=== PATIENT | female | born 1935 | race Caucasian/White ===

== ENCOUNTER 2022-08-30 20:58 | Emergency (ER) | payer OTHER ==
--- OUTSIDE RECORDS SUMMARY | 2022-08-30 21:15 | XMS REPORT | Continuity of Care Document ---
:1935 Author Organization [facility] t Address [address] [place] [address] Care Team Providers Name Role Phone Angelo Benavides MD Primary Care Physician [id number] Attending Clinician Unavailable MICHELET CYR KEVIN Attending Clinician Unavailable Angelo Benavides Attending Clinician Unavailable Manny Rosenberg Attending Clinician Unavailable Jessica Attending Clinician Unavailable Faheem Velarde Attending Clinician Unavailable ABI VILLANUEVA Attending Clinician Unavailable Julia CAFE ASSOCIATE, Elva Day Attending Clinician [phone] Luis E DIXON, Cheryl Jones Attending Clinician [phone] Liza DIXON, Denise Attending Clinician Oliverio Dickinson Attending Clinician Unavailable Angelo Benavides MD Attending Clinician A_Bybetzy Attending Clinician Unavailable RAYRAY SHETTY Attending Clinician Unavailable Garland Aguila Attending Clinician Unavailable WHITLEY ANDERSON Attending Clinician Unavailable LEONORA MESSER MICHAEL Attending Clinician Unavailable Paola Gilbert Attending Clinician Unavailable RICKIE MAXWELL Attending Clinician Unavailable Jamal Fairbanks Attending Clinician Unavailable Leonora Cottrell Attending Clinician Unavailable ALICIA CALDERA Attending Clinician Unavailable LEX HOLLOWAY Attending Clinician Unavailable Carli Juan Attending Clinician Unavailable YAEL BURNETT Attending Clinician Unavailable ANDIE SCHRADER Attending Clinician Unavailable GERSON ARANA Attending Clinician Unavailable Andrea Ritchie Attending Clinician Unavailable Kane Romero Attending Clinician Unavailable ESTHER LEI Attending Clinician Unavailable LI HAHN Attending Clinician Unavailable Gerson Arana Attending Clinician Unavailable STACY JOYNER Attending Clinician Unavailable EDWIN BAZZI Attending Clinician Unavailable IMER ELIZONDO Attending Clinician Unavailable ADAN PEREIRA Attending Clinician Unavailable [id number] Admitting Clinician Unavailable MICHELET CYR KEVIN Admitting Clinician Unavailable Angelo Benavides Admitting Clinician Unavailable Jessica Admitting Clinician Unavailable Martinez Admitting Clinician Unavailable LEONORA MESSER MICHAEL Admitting Clinician Unavailable Carli Juan Admitting Clinician Unavailable GERSON ARANA Admitting Clinician Unavailable Andrea Ritchie Admitting Clinician Unavailable ESTHER LEI Admitting Clinician Unavailable ADAN PEREIRA Admitting Clinician Unavailable Payers Payer Name Policy Type Policy Number Effective Date Expiration Date S [facility] [id number] [facility] [id number] MEDIC[id number] (MEDICARE REPLACEMENT/ADVANT AGE - PPO) [place]: [id number] 2002 [employer] 00:00:00 [facility] [id number] 2013 PLAN G (MEDICARE 00:00:00 SUPPLEMENT) [place]: [id number] 2002 [employer] 00:00:00 - [facility] - [facility] MCR MCR [id number] [facility] [id number] Problems Condition Condition Condition Status Onset Resolution Last Treating Co mments Source Name Details Category Date Date Treatment Clinician Date Acute Acute Problem Active [facility] urinary Urinary 1-09 da tract Tract 00:00: Medical infection Infection 00 Grou p Acute Acute Problem Active [facility] bronchopne Bronchopne 1-06 da umonia umonia 00:00: Medical 00 Group Cough Cough Problem Active [facility] 1-06 da 00:00: Medical 00 Group Hemoptysis Hemoptysis Problem Active [facility] 5-05 da 00:00: Medical 00 Group Osteoporos Osteoporos Problem Active 2018-06 [facility] is is 2-12 da 00:00: Medical 00 Group Chronic Chronic Problem Active 2018-06 [facility] renal Renal 0-30 da failure Failure 00:00: Medical 00 Group 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 00:00: Hospit a 00 l 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 00:00: Ho spita 00 l Postural Postural Disease Active Metho di instabilit instabilit 12-28 y y 00:00: Hospita 00 l 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 12-28 00:00: Hospita 00 l 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 00:00: Ho spita athy athy 00 l 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 00:00: Ho spita disorder disorder 00 l Hypertensi Hypertensi Disease Active M ethodi on on 12-13 00:00: Hospita 00 l CKD CKD Disease Active [facility] (chronic (chronic 12-13 kidney kidney 00:00: Hospita disease) disease) 00 l Urinary Urinary Disease Active [facility] incontinen incontinen 12-13 ce ce 00:00: Hospita 00 l Abnormal Abnormal Disease Active Meth[facility] di gait gait 12-13 st 00:00: Hospita 00 l Paraneopla Paraneopla Disease Active M ethodi stic stic 12-13 st neurologic neurologic 00:00: Ho spita disorder disorder 00 l Recurrent Recurrent Problem Active [facility] urinary Urinary 6-21 da tract Tract 00:00: Medical infection Infection 00 Grou p Unsteady Unsteady Problem Active [facility] gait Gait 4-15 da 00:00: Medical Group Unintentio Unintentio Problem Active [facility] nal weight nal Weight 4-15 da loss Loss 00:00: Medical Group Ventral Ventral Problem Active 2017-06 [facility] incisional Incisional 1-16 da hernia Hernia 00:00: Medical Group Chronic Chronic Problem Active [facility] depression Depression 3-02 da 00:00: Medical 00 Group Bilateral Bilateral Disease Active Met hodi leg leg 9-15 st weakness weakness 00:00: Hospit a 00 l Abrasion Abrasion Problem Active [place] [facility] of of da perineum Perineum Medica l Group Contusion Contusion Problem Active [facility] of scalp of Scalp [facility] Medical Group 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 Group Candidiasi Candidiasi Problem Active M [facility] s of skin s of Skin da Medical Group Pure Pure Problem Active [facility] hyperchole Hyperchole da sterolemia sterolemia Me dical Group Iron Iron Problem Active [facility] deficiency Deficiency da anemia Anemia Medical Group Benign Benign Problem Active [facility] essential Essential da hypertensi Hypertensi Me dical on on Group Lesion of Lesion of Problem Active [facility] nose Nose [facility] Group Chronic Chronic Problem Active [facility] renal Renal da impairment Impairment Me dical Group Low Low Problem Active [facility] compliance Compliance da bladder Bladder Medical Group Urinary Urinary Problem Active [facility] tract Tract da infectious Infectious Me dical disease Disease Group Menopausal Menopausal Problem Active M [facility] and and da postmenopa Postmenopa Me dical usal usal Group disorders Disorders Menopausal Menopausal Problem Active [facility] flushing Flushing da Medical Group 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 Medi saurav Group Skin Skin Problem Active [facility] lesion Lesion [facility] Hip pain Hip Pain Problem Active [facility] Degenerati Degenerati Problem Active [facility] on of on of da lumbar Lumbar Medical interverte Interverte Gr oup bral disc bral Disc Low back Low Back Problem Active [facility] pain Pain [facility] Acute Acute Problem Active [facility] sciatica Sciatica da Medical Group Pain in Pain in Problem Active [facility] lower limb Lower Limb da Medical Group Fatigue Fatigue Problem Active [facility] Unexplaine Unexplaine Problem Active [facility] d weight d Weight da loss Loss Medical Group Chronic Chronic Problem Active [facility] cough Cough [facility] Nausea and Nausea and Problem Active [facility] vomiting Vomiting da Medical Group Vomiting Vomiting Problem Active [facility] Diarrhea Diarrhea Problem Active [facility] Dysuria Dysuria Problem Active [facility] Allergies, Adverse Reactions, Alerts Allergy Allergy Status Severity Reaction(s) Onset Inactive Treating Comm ents Source Name Type Date Date Clinician Drew Salas Active Catatonic Met hodi ne ty to 02-27 , AMS st adverse 00:00: Hospita reaction 00 l s to drug Tramadol Propensi Active AMS Method i ty to 02-27 st adverse 00:00: Hospita reaction 00 l s to drug Demerol Allergy Active Moderate Anaphylaxis [facility] to to severe 06-15 da substanc 00:00: Medical e 00 Group Family History Family Member Diagnosis Comments Start Date Stop Date Source Natural father Cancer [facility] Natural mother Stroke [facility] Social History Social Habit Start Date Stop Date Quantity Comments Source Alcohol intake 2022-05-30 2022-05-30 Current [facility] 00:00:00 00:00:00 non-drinker of Hospital alcohol (finding) Tobacco use and 2022-02-06 2022-02-06 Smokeless tobacco [facility] exposure 00:00:00 00:00:00 non-user Hospital Sex Assigned At [birth year] [facility] 00:[facility]:00 Hospital Smoking Status Start Date Stop Date Source Never smoked tobacco [facility]sp[facility] Medications Ordered Filled Start Stop Current Ordering Indication Dosage Frequency Signature Comments Components Source Medication Medication Date Date Medication? Clinician (SIG) Name Name amoxicillin amoxicillin No amoxicilli [facility] 875 875 1-10 n 875 da mg-potassiu mg-potassiu 00:00: mg-Tiempy [facility] 00 um Group clavulanate clavulanate clavulanat 125 mg 125 mg e 125 mg tablet TAKE tablet TAKE tablet 1 TABLET BY 1 TABLET BY TAKE 1 MOUTH EVERY MOUTH EVERY TABLET BY 12 HOURS 12 HOURS MOUTH FOR 7 DAYS FOR 7 DAYS EVERY 12 HOURS FOR 7 DAYS azithromyci azithromyci 2022-0 No azithromyc [place] n 250 mg n 250 mg 1-10 in 250 mg da tablet TAKE tablet TAKE 00:00: tablet Medical 2 TABLETS 2 TABLETS 00 TAKE 2 Gabe up (500 MG) BY (500 MG) BY TABLETS ORAL ROUTE ORAL ROUTE (500 MG) ONCE DAILY ONCE DAILY BY ORAL FOR 1 DAY FOR 1 DAY ROUTE ONCE THEN 1 THEN 1 DAILY FOR TABLET (250 TABLET (250 1 DAY THEN MG) BY ORAL MG) BY ORAL 1 TABLET ROUTE ONCE ROUTE ONCE (250 MG) DAILY FOR 4 DAILY FOR 4 BY ORAL DAYS DAYS ROUTE ONCE DAILY FOR 4 DAYS amoxicillin amoxicillin 2022-0 No amoxicilli [facility] 875 875 1-10 n 875 da mg-potassiu mg-potassiu 00:00: mg-[facility] 00 um Group clavulanate clavulanate clavulanat 125 mg 125 mg e 125 mg tablet TAKE tablet TAKE tablet 1 TABLET BY 1 TABLET BY TAKE 1 MOUTH EVERY MOUTH EVERY TABLET BY 12 HOURS 12 HOURS MOUTH FOR 7 DAYS FOR 7 DAYS EVERY 12 HOURS FOR 7 DAYS azithromyci azithromyci 2022-0 No azithromyc [place] n 250 mg n 250 mg 1-10 in 250 mg da tablet TAKE tablet TAKE 00:00: tablet Medical 2 TABLETS 2 TABLETS 00 TAKE 2 Gabe up (500 MG) BY (500 MG) BY TABLETS ORAL ROUTE ORAL ROUTE (500 MG) ONCE DAILY ONCE DAILY BY ORAL FOR 1 DAY FOR 1 DAY ROUTE ONCE THEN 1 THEN 1 DAILY FOR TABLET (250 TABLET (250 1 DAY THEN MG) BY ORAL MG) BY ORAL 1 TABLET ROUTE ONCE ROUTE ONCE (250 MG) DAILY FOR 4 DAILY FOR 4 BY ORAL DAYS DAYS ROUTE ONCE DAILY FOR 4 DAYS amoxicillin amoxicillin 2022-0 No amoxicilli [facility] 875 875 1-10 n 875 da mg-potassiu mg-potassiu 00:00: mg-potassi Medical m m 00 um Group clavulanate clavulanate clavulanat 125 mg 125 mg e 125 mg tablet TAKE tablet TAKE tablet 1 TABLET BY 1 TABLET BY TAKE 1 MOUTH EVERY MOUTH EVERY TABLET BY 12 HOURS 12 HOURS MOUTH FOR 7 DAYS FOR 7 DAYS EVERY 12 HOURS FOR 7 DAYS azithromyci azithromyci 2022-0 No azithromyc [place] n 250 mg n 250 mg 1-10 in 250 mg da tablet TAKE tablet TAKE 00:00: tablet Medical 2 TABLETS 2 TABLETS 00 TAKE 2 Gabe up (500 MG) BY (500 MG) BY TABLETS ORAL ROUTE ORAL ROUTE (500 MG) ONCE DAILY ONCE DAILY BY ORAL FOR 1 DAY FOR 1 DAY ROUTE ONCE THEN 1 THEN 1 DAILY FOR TABLET (250 TABLET (250 1 DAY THEN MG) BY ORAL MG) BY ORAL 1 TABLET ROUTE ONCE ROUTE ONCE (250 MG) DAILY FOR 4 DAILY FOR 4 BY ORAL DAYS DAYS ROUTE ONCE DAILY FOR 4 DAYS metoclopram 2021-06 Yes 5mg Q.25D Take 5 mg [facility]i luis 2-[address] (REGLAN) 5 08:14: every 6 Hosp dev MG tablet 35 (six) l hours. promethazin 2021-06 Yes 25mg Q6H Inject 25 M ethodi e 2-[address] (PHENERGAN) 08:14: the Hospit a 25 mg/mL 35 shoulder, l injection thigh, or buttocks every 6 (six) hours as needed for nausea or vomiting. pantoprazol 2021-06 Yes 40mg Q.5D Take 40 mg Methodi e 2-[address] (PROTONIX) 08:14: (two) Hospit a 40 MG EC 35 times a l tablet day. senna 2021-06 Yes 1{tbl} QD Take 1 Methodi (SENOKOT) 2-[address] 8.6 mg 08:14: mouth Hospita tablet 35 daily. l atorvastati 2021-06 Yes 20mg QD Take 20 mg Methodi n (LIPITOR) 2-[address] 20 MG 08:14: nightly. Hospita tablet 35 l ondansetron 2021-06 Yes 4mg Q8H Take 4 mg M ethodi (ZOFRAN) 4 2-[address] MG tablet 08:14: every 8 Hospi ta 35 (eight) l hours as needed for nausea. aspirin 2021-06 Yes 81mg QD Take 81 mg Meth pepe (ECOTRIN) 2-[address] 81 MG 08:14: daily. Hospita enteric 35 l coated tablet bisacodyl 2021-06 Yes 10mg Insert 10 Met hodi (DULCOLAX) 2-[address] 10 mg 08:14: the rectum Hospit a suppository 35 as needed l for constipati on. carvedilol 2021-06 Yes 3.125mg Q.5D Take 3.125 Methodi (COREG) 2-[address] 3.125 MG 08:14: mouth 2 Hospit a tablet 35 (two) l times a day with meals. EPOETIN 2021-06 Yes 5000U Q.[id number] Inject M ethodi ZULLY INJ 2-[address] [id number] 5,000 st 08:14: 3W Units Hospita 35 under the l skin 3 (three) times a week. ergocalcife 2021-06 Yes [id number] Q7D Take Meth pepe rol 2-16 50,000 st (VITAMIN 08:14: Units by Hospi ta D2) 50,000 35 mouth once l unit a week. capsule polyethylen 2021-06 Yes 17g QD Take 17 g M ethodi e glycol 2-[address] (MIRALAX) 08:14: daily. Hospit a 17 gram 35 l packet menthol-zin 2021-06 Yes 1{each} Q2H Apply 1 Methodi c oxide 2-[address] (CALMOSEPTI 08:14: topically H ospita NE) 35 every 2 l 0.44-20.6 % (two) ointment hours as needed (SACRAL AREA). metoclopram 2021-06 Yes 5mg Q.25D Take 5 mg Methodi luis 2-[address] (REGLAN) 5 08:14: every 6 Hosp dev MG tablet 35 (six) l hours. promethazin 2021-06 Yes 25mg Q6H Inject 25 M ethodi e 2-[address] (PHENERGAN) 08:14: the Hospit a 25 mg/mL 35 shoulder, l injection thigh, or buttocks every 6 (six) hours as needed for nausea or vomiting. pantoprazol 2021-06 Yes 40mg Q.5D Take 40 mg Methodi e 2-[address] (PROTONIX) 08:14: (two) Hospit a 40 MG EC 35 times a l tablet day. senna 2021-06 Yes 1{tbl} QD Take 1 Methodi (SENOKOT) 2-[address] 8.6 mg 08:14: mouth Hospita tablet 35 daily. l atorvastati 2021-06 Yes 20mg QD Take 20 mg Methodi n (LIPITOR) 2-[address] 20 MG 08:14: nightly. Hospita tablet 35 l ondansetron 2021-06 Yes 4mg Q8H Take 4 mg M ethodi (ZOFRAN) 4 2-[address] MG tablet 08:14: every 8 Hospi ta 35 (eight) l hours as needed for nausea. aspirin 2021-06 Yes 81mg QD Take 81 mg Meth pepe (ECOTRIN) 2-[address] 81 MG 08:14: daily. Hospita enteric 35 l coated tablet bisacodyl 2021-06 Yes 10mg Insert 10 Met hodi (DULCOLAX) 2-[address] 10 mg 08:14: the rectum Hospit a suppository 35 as needed l for constipati on. carvedilol 2021-06 Yes 3.125mg Q.5D Take 3.125 Methodi (COREG) 2-[address] 3.125 MG 08:14: mouth 2 Hospit a tablet 35 (two) l times a day with meals. EPOETIN 2021-06 Yes 5000U Q.[id number] Inject M ethodi ZULLY INJ 2-16 [id number] 5,000 st 08:14: 3W Units Hospita 35 under the l skin 3 (three) times a week. ergocalcife 2021-06 Yes [id number] Q7D Take Meth pepe rol 2-16 50,000 st (VITAMIN 08:14: Units by Hospi ta D2) 50,000 35 mouth once l unit a week. capsule polyethylen 2021-06 Yes 17g QD Take 17 g M ethodi e glycol 2-[address] (MIRALAX) 08:14: daily. Hospit a 17 gram 35 l packet menthol-zin 2021-06 Yes 1{each} Q2H Apply 1 Methodi c oxide 2-[address] (CALMOSEPTI 08:14: topically H ospita NE) 35 every 2 l 0.44-20.6 % (two) ointment hours as needed (SACRAL AREA). metoclopram 2021-06 Yes 5mg Q.25D Take 5 mg Methodi luis 2-[address] (REGLAN) 5 08:14: every 6 Hosp dev MG tablet 35 (six) l hours. promethazin 2021-06 Yes 25mg Q6H Inject 25 M ethodi e 2-[address] (PHENERGAN) 08:14: the Hospit a 25 mg/mL 35 shoulder, l injection thigh, or buttocks every 6 (six) hours as needed for nausea or vomiting. pantoprazol 2021-06 Yes 40mg Q.5D Take 40 mg Methodi e 2-[address] (PROTONIX) 08:14: (two) Hospit a 40 MG EC 35 times a l tablet day. senna 2021-06 Yes 1{tbl} QD Take 1 Methodi (SENOKOT) 2-[address] 8.6 mg 08:14: mouth Hospita tablet 35 daily. l atorvastati 2021-06 Yes 20mg QD Take 20 mg Methodi n (LIPITOR) 2-[address] 20 MG 08:14: nightly. Hospita tablet 35 l ondansetron 2021-06 Yes 4mg Q8H Take 4 mg M ethodi (ZOFRAN) 4 2-[address] MG tablet 08:14: every 8 Hospi ta 35 (eight) l hours as needed for nausea. aspirin 2021-06 Yes 81mg QD Take 81 mg Meth pepe (ECOTRIN) 2-[address] 81 MG 08:14: daily. Hospita enteric 35 l coated tablet bisacodyl 2021-06 Yes 10mg Insert 10 Met hodi (DULCOLAX) 2-[address] 10 mg 08:14: the rectum Hospit a suppository 35 as needed l for constipati on. carvedilol 2021-06 Yes 3.125mg Q.5D Take 3.125 Methodi (COREG) 2-[address] 3.125 MG 08:14: mouth 2 Hospit a tablet 35 (two) l times a day with meals. EPOETIN 2021-06 Yes 5000U Q.[id number] Inject M ethodi ZULLY INJ 2-16 [id number] 5,000 st 08:14: 3W Units Hospita 35 under the l skin 3 (three) times a week. ergocalcife 2021-06 Yes [id number] Q7D Take Meth pepe rol 2-16 50,000 st (VITAMIN 08:14: Units by Hospi ta D2) 50,000 35 mouth once l unit a week. capsule polyethylen 2021-06 Yes 17g QD Take 17 g M ethodi e glycol 2-[address] (MIRALAX) 08:14: daily. Hospit a 17 gram 35 l packet menthol-zin 2021-06 Yes 1{each} Q2H Apply 1 Methodi c oxide 2-[address] (CALMOSEPTI 08:14: topically H ospita NE) 35 every 2 l 0.44-20.6 % (two) ointment hours as needed (SACRAL AREA). metoclopram 2021-06 Yes 5mg Q.25D Take 5 mg Methodi luis 2-[address] (REGLAN) 5 08:14: every 6 Hosp dev MG tablet 35 (six) l hours. promethazin 2021-06 Yes 25mg Q6H Inject 25 M ethodi e 2-[address] (PHENERGAN) 08:14: the Hospit a 25 mg/mL 35 shoulder, l injection thigh, or buttocks every 6 (six) hours as needed for nausea or vomiting. pantoprazol 2021-06 Yes 40mg Q.5D Take 40 mg Methodi e 2-[address] (PROTONIX) 08:14: (two) Hospit a 40 MG EC 35 times a l tablet day. senna 2021-06 Yes 1{tbl} QD Take 1 Methodi (SENOKOT) 2-[address] 8.6 mg 08:14: mouth Hospita tablet 35 daily. l atorvastati 2021-06 Yes 20mg QD Take 20 mg Methodi n (LIPITOR) 2-[address] 20 MG 08:14: nightly. Hospita tablet 35 l ondansetron 2021-06 Yes 4mg Q8H Take 4 mg M ethodi (ZOFRAN) 4 2-[address] MG tablet 08:14: every 8 Hospi ta 35 (eight) l hours as needed for nausea. aspirin 2021-06 Yes 81mg QD Take 81 mg Meth pepe (ECOTRIN) 2-[address] 81 MG 08:14: daily. Hospita enteric 35 l coated tablet bisacodyl 2021-06 Yes 10mg Insert 10 Met hodi (DULCOLAX) 2-[address] 10 mg 08:14: the rectum Hospit a suppository 35 as needed l for constipati on. carvedilol 2021-06 Yes 3.125mg Q.5D Take 3.125 Methodi (COREG) 2-[address] 3.125 MG 08:14: mouth 2 Hospit a tablet 35 (two) l times a day with meals. EPOETIN 2021-06 Yes 5000U Q.[id number] Inject M ethodi ZULLY INJ 2-16 [id number] 5,000 st 08:14: 3W Units Hospita 35 under the l skin 3 (three) times a week. ergocalcife 2021-06 Yes [id number] Q7D Take Meth pepe rol 2-16 50,000 st (VITAMIN 08:14: Units by Hospi ta D2) 50,000 35 mouth once l unit a week. capsule polyethylen 2021-06 Yes 17g QD Take 17 g M ethodi e glycol 2-[address] (MIRALAX) 08:14: daily. Hospit a 17 gram 35 l packet menthol-zin 2021-06 Yes 1{each} Q2H Apply 1 Methodi c oxide 2-[address] (CALMOSEPTI 08:14: topically H ospita NE) 35 every 2 l 0.44-20.6 % (two) ointment hours as needed (SACRAL AREA). metoclopram 2021-06 Yes 5mg Q.25D Take 5 mg Methodi luis 2-[address] (REGLAN) 5 08:14: every 6 Hosp dev MG tablet 35 (six) l hours. promethazin 2021-06 Yes 25mg Q6H Inject 25 M ethodi e 2-[address] (PHENERGAN) 08:14: the Hospit a 25 mg/mL 35 shoulder, l injection thigh, or buttocks every 6 (six) hours as needed for nausea or vomiting. pantoprazol 2021-06 Yes 40mg Q.5D Take 40 mg Methodi e 2-[address] (PROTONIX) 08:14: (two) Hospit a 40 MG EC 35 times a l tablet day. senna 2021-06 Yes 1{tbl} QD Take 1 Methodi (SENOKOT) 2-[address] 8.6 mg 08:14: mouth Hospita tablet 35 daily. l atorvastati 2021-06 Yes 20mg QD Take 20 mg Methodi n (LIPITOR) 2-[address] 20 MG 08:14: nightly. Hospita tablet 35 l ondansetron 2021-06 Yes 4mg Q8H Take 4 mg M ethodi (ZOFRAN) 4 2-[address] MG tablet 08:14: every 8 Hospi ta 35 (eight) l hours as needed for nausea. aspirin 2021-06 Yes 81mg QD Take 81 mg Meth pepe (ECOTRIN) 2-[address] 81 MG 08:14: daily. Hospita enteric 35 l coated tablet bisacodyl 2021-06 Yes 10mg Insert 10 Met hodi (DULCOLAX) 2-[address] 10 mg 08:14: the rectum Hospit a suppository 35 as needed l for constipati on. carvedilol 2021-06 Yes 3.125mg Q.5D Take 3.125 Methodi (COREG) 2-[address] 3.125 MG 08:14: mouth 2 Hospit a tablet 35 (two) l times a day with meals. EPOETIN 2021-06 Yes 5000U [id number] Inject M ethodi ZULLY INJ 2-16 [id number] 5,000 st 08:14: 3W Units Hospita 35 under the l skin 3 (three) times a week. ergocalcife 2021-06 Yes [id number] Q7D Take Meth pepe rol 2-16 50,000 st (VITAMIN 08:14: Units by Hospi ta D2) 50,000 35 mouth once l unit a week. capsule polyethylen 2021-06 Yes 17g QD Take 17 g M ethodi e glycol 2-[address] (MIRALAX) 08:14: daily. Hospit a 17 gram 35 l packet menthol-zin 2021-06 Yes 1{each} Q2H Apply 1 Methodi c oxide 2-[address] (CALMOSEPTI 08:14: topically H ospita NE) 35 every 2 l 0.44-20.6 % (two) ointment hours as needed (SACRAL AREA). metoclopram 2021-06 Yes 5mg Q.25D Take 5 mg Methodi luis 2-[address] (REGLAN) 5 08:14: every 6 Hosp dev MG tablet 35 (six) l hours. promethazin 2021-06 Yes 25mg Q6H Inject 25 M ethodi e 2-[address] (PHENERGAN) 08:14: the Hospit a 25 mg/mL 35 shoulder, l injection thigh, or buttocks every 6 (six) hours as needed for nausea or vomiting. pantoprazol 2021-06 Yes 40mg Q.5D Take 40 mg Methodi e 2-[address] (PROTONIX) 08:14: (two) Hospit a 40 MG EC 35 times a l tablet day. senna 2021-06 Yes 1{tbl} QD Take 1 Methodi (SENOKOT) 2-[address] 8.6 mg 08:14: mouth Hospita tablet 35 daily. l atorvastati 2021-06 Yes 20mg QD Take 20 mg Methodi n (LIPITOR) 2-[address] 20 MG 08:14: nightly. Hospita tablet 35 l ondansetron 2021-06 Yes 4mg Q8H Take 4 mg M ethodi (ZOFRAN) 4 2-[address] MG tablet 08:14: every 8 Hospi ta 35 (eight) l hours as needed for nausea. aspirin 2021-06 Yes 81mg QD Take 81 mg Meth pepe (ECOTRIN) 2-[address] 81 MG 08:14: daily. Hospita enteric 35 l coated tablet bisacodyl 2021-06 Yes 10mg Insert 10 Met hodi (DULCOLAX) 2-[address] 10 mg 08:14: the rectum Hospit a suppository 35 as needed l for constipati on. carvedilol 2021-06 Yes 3.125mg Q.5D Take 3.125 Methodi (COREG) 2-[address] 3.125 MG 08:14: mouth 2 Hospit a tablet 35 (two) l times a day with meals. EPOETIN 2021-06 Yes 5000U [id number] Inject M ethodi ZULLY INJ 2-16 [id number] 5,000 st 08:14: 3W Units Hospita 35 under the l skin 3 (three) times a week. ergocalcife 2021-06 Yes [id number] Q7D Take Meth pepe rol 2-16 50,000 st (VITAMIN 08:14: Units by Hospi ta D2) 50,000 35 mouth once l unit a week. capsule polyethylen 2021-06 Yes 17g QD Take 17 g M ethodi e glycol 2-[address] (MIRALAX) 08:14: daily. Hospit a 17 gram 35 l packet menthol-zin 2021-06 Yes 1{each} Q2H Apply 1 Methodi c oxide 2-[address] (CALMOSEPTI 08:14: topically H ospita NE) 35 every 2 l 0.44-20.6 % (two) ointment hours as needed (SACRAL AREA). metoclopram 2021-06 Yes 5mg Q.25D Take 5 mg Methodi luis 2-[address] (REGLAN) 5 08:14: every 6 Hosp dev MG tablet 35 (six) l hours. promethazin 2021-06 Yes 25mg Q6H Inject 25 M ethodi e 2-[address] (PHENERGAN) 08:14: the Hospit a 25 mg/mL 35 shoulder, l injection thigh, or buttocks every 6 (six) hours as needed for nausea or vomiting. pantoprazol 2021-06 Yes 40mg Q.5D Take 40 mg Methodi e 2-[address] (PROTONIX) 08:14: (two) Hospit a 40 MG EC 35 times a l tablet day. senna 2021-06 Yes 1{tbl} QD Take 1 Methodi (SENOKOT) 2-[address] 8.6 mg 08:14: mouth Hospita tablet 35 daily. l atorvastati 2021-06 Yes 20mg QD Take 20 mg Methodi n (LIPITOR) 2-[address] 20 MG 08:14: nightly. Hospita tablet 35 l ondansetron 2022-1 Yes 4mg Q8H Take 4 mg M ethodi (ZOFRAN) 4 2-[address] MG tablet 08:14: every 8 Hospi ta 35 (eight) l hours as needed for nausea. aspirin 2021-06 Yes 81mg QD Take 81 mg Meth pepe (ECOTRIN) 2-[address] 81 MG 08:14: daily. [facility] 35 l coated tablet bisacodyl 2021-06 Yes 10mg Insert 10 [facility] h[facility] (DULCOLAX) 2-[address] 10 mg 08:14: the [facility] suppository 35 as needed l for constipati on. carvedilol 2021-06 Yes 3.125mg Q.5D Take 3.125 [facility] (COREG) 2-[address] 3.125 MG 08:14: mouth 2 Hospit a tablet 35 (two) l times a day with meals. EPOETIN 2021-06 Yes 5000U [id number] Inject M ethodi ZULLY INJ 2-16 [id number] 5,000 st 08:14: 3W Units [facility]osp[facility] 35 under the l skin 3 (three) times a week. ergocalcife 2021-06 Yes [id number] Q7D Take Meth pepe rol 2-16 50,000 st (VITAMIN 08:14: Units by Hospi ta D2) 50,000 35 mouth once l unit a week. capsule polyethylen 2021-06 Yes 17g QD Take 17 g M ethodi e glycol 2-[address] (MIRALAX) 08:14: daily. Hospit a 17 gram 35 l packet menthol-zin 2021-06 Yes 1{each} Q2H Apply 1 Methodi c oxide 2-[address] (CALMOSEPTI 08:14: topically [facility]) 35 every 2 l 0.44-20.6 % (two) ointment hours as needed (SACRAL AREA). metoclopram 2021-06 Yes 5mg Q.25D Take 5 mg Methodi luis 2-[address] (REGLAN) 5 08:14: every 6 Hosp dev MG tablet 35 (six) l hours. promethazin 2021-06 Yes 25mg Q6H Inject 25 M ethodi e 2-[address] (PHENERGAN) 08:14: the Hospit a 25 mg/mL 35 shoulder, l injection thigh, or buttocks every 6 (six) hours as needed for nausea or vomiting. pantoprazol 2021-06 Yes 40mg Q.5D Take 40 mg Methodi e 2-[address] (PROTONIX) 08:14: (two) Hospit a 40 MG EC 35 times a l tablet day. senna 2021-06 Yes 1{tbl} QD Take 1 [facility]i (SENOKOT) 2-[address] 8.6 mg 08:14: mouth [facility]osp[facility] tablet 35 daily. l atorvastati 2021-06 Yes 20mg QD Take 20 mg Methodi n (LIPITOR) 2-[address] 20 MG 08:14: nightly. Hospita tablet 35 l ondansetron 2021-06 Yes 4mg Q8H Take 4 mg M ethodi (ZOFRAN) 4 2-[address] MG tablet 08:14: every 8 [facility]pi ta 35 (eight) l hours as needed for nausea. aspirin 2021-06 Yes 81mg QD Take 81 mg Meth pepe (ECOTRIN) 2-[address] 81 MG 08:14: daily. [facility] enteric 35 l coated tablet bisacodyl 2021-06 Yes 10mg Insert 10 Met hodi (DULCOLAX) 2-[address] 10 mg 08:14: the rectum [facility] a suppository 35 as needed l for constipati on. carvedilol 2021-06 Yes 3.125mg Q.5D Take 3.125 [facility] (COREG) 2-[address] 3.125 MG 08:14: mouth 2 Hospit a tablet 35 (two) l times a day with meals. EPOETIN 2021-06 Yes 5000U Q.[id number] Inject M ethodi ZULLY INJ 2-[id number] 5,000 st 08:14: 3W Units [facility] 35 under the l skin 3 (three) times a week. ergocalcife 2021-06 Yes [id number] Q7D Take Meth pepe rol 2-16 50,000 st (VITAMIN 08:14: Units by Hospi ta D2) 50,000 35 mouth once l unit a week. capsule polyethylen 2021-06 Yes 17g QD Take 17 g M ethodi e glycol 2-[address] (MIRALAX) 08:14: daily. Hospit a 17 gram 35 l packet menthol-zin 2021-06 Yes 1{each} Q2H Apply 1 Methodi c oxide 2-[address] (CALMOSEPTI 08:14: topically [facility]) 35 every 2 l 0.44-20.6 % (two) ointment hours as needed (SACRAL AREA). carbidopa-l 2022- No [id number] 1{tbl} Q.[id number] Take 1 [facility] evodopa 03-[id number] (Sinemet) 00:00: 04:59 3D mouth 3 Hosp dev 25-100 mg 00 :00 (three) l per tablet times a day. carbidopa-l 2021-2022- No [id number] 1{tbl} Q.[id number] Take 1 [facility] evodopa 03-[id number] (Sinemet) 00:00: 04:59 3D mouth 3 Hosp dev 25-100 mg 00 :00 (three) l per tablet times a day. carbidopa-l 2022- No [id number] 1{tbl} Q.[id number] Take 1 [facility] evodopa 03-[id number] (Sinemet) 00:00: 04:59 3D mouth 3 Hosp dev 25-100 mg 00 :00 (three) l per tablet times a day. carbidopa-l 2021-2022- No [id number] 1{tbl} Q.[id number] Take 1 [facility] evodopa 03-[id number] (Sinemet) 00:00: 04:59 3D mouth 3 Hosp dev 25-100 mg 00 :00 (three) l per tablet times a day. carbidopa-l 2021-2022- No [id number] 1{tbl} Q.[id number] Take 1 [facility] evodopa 03-[id number] (Sinemet) 00:00: 04:59 3D mouth 3 Hosp dev 25-100 mg 00 :00 (three) l per tablet times a day. carbidopa-l 2021-0 2022- No [id number] 1{tbl} Q.[id number] Take 1 [facility] evodopa 03-[id number] (Sinemet) 00:00: 04:59 3D mouth 3 Hosp dev 25-100 mg 00 :00 (three) l per tablet times a day. carbidopa-l 2022- No [id number] 1{tbl} Q.[id number] Take 1 [facility] evodopa 03-[id number] (Sinemet) 00:00: 04:59 3D mouth 3 Hosp dev 25-100 mg 00 :00 (three) l per tablet times a day. carbidopa-l 2022- No [id number] 1{tbl} Q.[id number] Take 1 [facility] evodopa 03-[id number] (Sinemet) 00:00: 04:59 3D mouth 3 Hosp dev 25-100 mg 00 :00 (three) l per tablet times a day. cyanocobala 2020-0 2020- No 1000ug Q30D Inject 1 [facility] min 1,000 9-12 03-12 mL (1,000 st mcg/mL 00:00: 05:59 mcg total) Hosp dev injection 00 :00 into the l shoulder, thigh, or buttocks every 30 (thirty) days for 180 days. cyanocobala 2020-0 2020- No 1000ug Q30D Inject 1 [facility] min 1,000 9-12 03-12 mL (1,000 st mcg/mL 00:00: 05:59 mcg total) Hosp dev injection 00 :00 into the l shoulder, thigh, or buttocks every 30 (thirty) days for 180 days. sucralfate 2019-0 Yes 1g Q.25D Take 1 g [facility] (CARAFATE) 8-[address] 100 mg/mL 15:10: (four) Hospit a suspension 16 times a l day. sucralfate 2019-0 Yes 1g Q.25D Take 1 g [facility] (CARAFATE) 8-[address] 100 mg/mL 15:10: (four) Hospit a suspension 16 times a l day. sucralfate 2019-0 Yes 1g Q.25D Take 1 g [facility] (CARAFATE) 8-[address] 100 mg/mL 15:10: (four) Hospit a suspension 16 times a l day. sucralfate 2019-0 Yes 1g Q.25D Take 1 g [facility] (CARAFATE) 8-[address] 100 mg/mL 15:10: (four) Hospit a suspension 16 times a l day. sucralfate 2019-0 Yes 1g Q.25D Take 1 g [facility] (CARAFATE) 8-[address] 100 mg/mL 15:10: (four) Hospit a suspension 16 times a l day. metoclopram 2019-0 Yes 5mg Q.25D Take 5 mg Methodi luis 8-[address] (REGLAN) 5 15:10: every 6 Hosp dev MG tablet 16 (six) l hours. promethazin 2019-0 Yes 25mg Q6H Inject 25 M ethodi e 8-[address] (PHENERGAN) 15:10: the Hospit a 25 mg/mL 16 shoulder, l injection thigh, or buttocks every 6 (six) hours as needed for nausea or vomiting. sucralfate 2019-0 Yes 1g Q.25D Take 1 g [facility] (CARAFATE) 8-[address] 100 mg/mL 15:10: (four) Hospit a suspension 16 times a l day. sucralfate 2019-0 Yes 1g Q.25D Take 1 g [facility] (CARAFATE) 8-[address] 100 mg/mL 15:10: (four) Hospit a suspension 16 times a l day. pantoprazol 2019-0 Yes 40mg Q.5D Take 40 mg Methodi e 8-[address] (PROTONIX) 15:10: (two) Hospit a 40 MG EC 16 times a l tablet day. sucralfate 2019-0 Yes 1g Q.25D Take 1 g [facility] (CARAFATE) 8-[address] 100 mg/mL 15:10: (four) Hospit a suspension 16 times a l day. senna 2019-0 Yes 1{tbl} QD Take 1 [facility]i (SENOKOT) 8-[address] 8.6 mg 15:10: mouth [facility]ospita tablet 16 daily. l atorvastati Yes 20mg QD Take 20 mg Methodi n (LIPITOR) 8-[address] 20 MG 15:10: nightly. [facility]ospita tablet 16 l sucralfate 0 Yes 1g Q.25D Take 1 g [facility] (CARAFATE) 8-[address] 100 mg/mL 15:10: (four) Hospit a suspension 16 times a l day. ondansetron Yes 4mg Q8H Take 4 mg M ethodi (ZOFRAN) 4 8-[address] MG tablet 15:10: every 8 Hospi ta 16 (eight) l hours as needed for nausea. aspirin Yes 81mg QD Take 81 mg Meth pepe (ECOTRIN) 8-[address] 81 MG 15:10: daily. [facility] enteric 16 l coated tablet bisacodyl Yes 10mg Insert 10 Met [facility] (DULCOLAX) 8-[address] 10 mg 15:10: the rectum Hospit a suppository 16 as needed l for constipati on. carvedilol Yes 3.125mg Q.5D Take 3.125 [facility] (COREG) 8-[address] 3.125 MG 15:10: mouth 2 Hospit a tablet 16 (two) l times a day with meals. EPOETIN Yes 5000U Q.[id number] Inject M ethodi ZULLY INJ 8-20 [id number] 5,000 st 15:10: 3W Units [facility] 16 under the l skin 3 (three) times a week. ergocalcife Yes [id number] Q7D Take Meth pepe rol 8-20 50,000 st (VITAMIN 15:10: Units by Hospi ta D2) 50,000 16 mouth once l unit a week. capsule polyethylen Yes 17g QD Take 17 g M ethodi e glycol 8-[address] (MIRALAX) 15:10: daily. Hospit a 17 gram 16 l packet menthol-zin Yes 1{each} Q2H Apply 1 Methodi c oxide 8-[address] (CALMOSEPTI 15:10: topically [facility]) 16 every 2 l 0.44-20.6 % (two) ointment hours as needed (SACRAL AREA). metoclopram 2019-0 Yes 5mg Q.25D Take 5 mg [facility]i luis 8-[address] (REGLAN) 5 15:10: every 6 [facility]osp dev MG tablet 16 (six) l hours. promethazin 2019-0 Yes 25mg Q6H Inject 25 M ethodi e 8-[address] (PHENERGAN) 15:10: the Hospit a 25 mg/mL 16 shoulder, l injection thigh, or buttocks every 6 (six) hours as needed for nausea or vomiting. sucralfate 2019-0 Yes 1g Q.25D Take 1 g [facility] (CARAFATE) 8-[address] 100 mg/mL 15:10: (four) Hospit a suspension 16 times a l day. pantoprazol 2019-0 Yes 40mg Q.5D Take 40 mg Methodi e 8-[address] (PROTONIX) 15:10: (two) Hospit a 40 MG EC 16 times a l tablet day. senna 2019-0 Yes 1{tbl} QD Take 1 [facility]i (SENOKOT) 8-[address] 8.6 mg 15:10: mouth [facility]ospita tablet 16 daily. l atorvastati 2018-0 Yes 20mg QD Take 20 mg Methodi n (LIPITOR) 8-[address] 20 MG 15:10: nightly. [facility]ospita tablet 16 l ondansetron 2018-0 Yes 4mg Q8H Take 4 mg M ethodi (ZOFRAN) 4 8-[address] MG tablet 15:10: every 8 [facility]pi ta 16 (eight) l hours as needed for nausea. aspirin 2019-0 Yes 81mg QD Take 81 mg Meth pepe (ECOTRIN) 8-[address] 81 MG 15:10: daily. [facility] enteric 16 l coated tablet bisacodyl 2019-0 Yes 10mg Insert 10 Met [facility] (DULCOLAX) 8-[address] 10 mg 15:10: the rectum Hospit a suppository 16 as needed l for constipati on. carvedilol 2019-0 Yes 3.125mg Q.5D Take 3.125 [facility] (COREG) 8-[address] 3.125 MG 15:10: mouth 2 Hospit a tablet 16 (two) l times a day with meals. EPOETIN 2019-0 Yes 5000U [id number] Inject M ethodi ZULLY INJ 8-[address] [id number] 5,000 st 15:10: 3W Units [facility] 16 under the l skin 3 (three) times a week. ergocalcife 2019-0 Yes [id number] Q7D Take Meth pepe rol 8-20 50,000 st (VITAMIN 15:10: Units by Hospi ta D2) 50,000 16 mouth once l unit a week. capsule polyethylen 2019-0 Yes 17g QD Take 17 g M ethodi e glycol 8-[address] (MIRALAX) 15:10: daily. Hospit a 17 gram 16 l packet menthol-zin 2018- Yes 1{each} Q2H Apply 1 Methodi c oxide 8-[address] (CALMOSEPTI 15:10: topically [facility]) 16 every 2 l 0.44-20.6 % (two) ointment hours as needed (SACRAL AREA). sertraline 2019-0 Yes 25mg QD Take 25 mg M ethodi (ZOLOFT) 25 4-[address] MG tablet 00:00: daily. Hospit a 00 l sertraline 2019-0 Yes 25mg QD Take 25 mg M ethodi (ZOLOFT) 25 4-[address] MG tablet 00:00: daily. Hospit a 00 l sertraline 2019-0 Yes 25mg QD Take 25 mg M ethodi (ZOLOFT) 25 4-[address] MG tablet 00:00: daily. Hospit a 00 l sertraline 2019-0 Yes 25mg QD Take 25 mg M ethodi (ZOLOFT) 25 4-[address] MG tablet 00:00: daily. Hospit a 00 l sertraline 2019-0 Yes 25mg QD Take 25 mg M ethodi (ZOLOFT) 25 4-[address] MG tablet 00:00: daily. Hospit a 00 l sertraline 2019-0 Yes 25mg QD Take 25 mg M ethodi (ZOLOFT) 25 4-[address] MG tablet 00:00: daily. Hospit a 00 l sertraline 2019-0 Yes 25mg QD Take 25 mg M ethodi (ZOLOFT) 25 4-[address] MG tablet 00:00: daily. Hospit a 00 l sertraline 2019-0 Yes 25mg QD Take 25 mg M ethodi (ZOLOFT) 25 4-[address] MG tablet 00:00: daily. Hospit a 00 l sertraline 2019-0 Yes 25mg QD Take 25 mg M ethodi (ZOLOFT) 25 4-[address] MG tablet 00:00: daily. Hospit a 00 l sertraline 2019-0 Yes 25mg QD Take 25 mg M ethodi (ZOLOFT) 25 4-[address] MG tablet 00:00: daily. Hospit a 00 l oxybutynin 2019-0 Yes 5mg QD Take 5 mg [facility] (DITROPAN) 3-[address] 5 MG tablet 00:00: daily. Hosp dev 00 l oxybutynin 2019-0 Yes 5mg QD Take 5 mg [facility] (DITROPAN) 3-[address] 5 MG tablet 00:00: daily. Hosp dev 00 l oxybutynin 2019-0 Yes 5mg QD Take 5 mg [facility] (DITROPAN) 3-[address] 5 MG tablet 00:00: daily. Hosp dev 00 l oxybutynin 2019-0 Yes 5mg QD Take 5 mg [facility] (DITROPAN) 3-[address] 5 MG tablet 00:00: daily. Hosp dev 00 l oxybutynin 2019-0 Yes 5mg QD Take 5 mg [facility] (DITROPAN) 3-[address] 5 MG tablet 00:00: daily. Hosp dev 00 l oxybutynin 2019-0 Yes 5mg QD Take 5 mg [facility] (DITROPAN) 3-[address] 5 MG tablet 00:00: daily. Hosp dev 00 l oxybutynin 2019-0 Yes 5mg QD Take 5 mg [facility] (DITROPAN) 3-[address] 5 MG tablet 00:00: daily. Hosp dev 00 l oxybutynin 2019-0 Yes 5mg QD Take 5 mg [facility] (DITROPAN) 3-[address] 5 MG tablet 00:00: daily. Hosp dev 00 l oxybutynin 2019-0 Yes 5mg QD Take 5 mg [facility] (DITROPAN) 3-[address] 5 MG tablet 00:00: daily. Hosp dev 00 l oxybutynin 2019-0 Yes 5mg QD Take 5 mg Me cecilodi (DITROPAN) 3-[address] 5 MG tablet 00:00: daily. [facility]osp dev 00 l amlodipine amlodipine No amlodipine [facility] 5 mg tablet 5 mg tablet 5 mg d a TAKE 1 TAKE 1 tablet Medical TABLET BY TABLET BY TAKE 1 Gabe up MOUTH ONCE MOUTH ONCE TABLET BY DAILY DAILY MOUTH ONCE DAILY aspirin 81 aspirin 81 No 1 Q1D aspirin 81 [facility] mg mg mg da tablet,priyank tablet,priyank tablet,del Medical yed release yed release ayed G roup Take 1 Take 1 release tablet tablet Take 1 every day every day tablet by oral by oral every day route as route as by oral directed. directed. route as directed. carvedilol carvedilol No carvedilol [facility] 6.25 mg 6.25 mg 6.25 mg da tablet TAKE tablet TAKE tablet Medical 1 TABLET BY 1 TABLET BY TAKE 1 Group MOUTH IN MOUTH IN TABLET BY THE MORNING THE MORNING MOUTH IN AND 1 IN AND 1 IN THE THE EVENING THE EVENING MORNING AND 1 IN THE EVENING clobetasol clobetasol No clobetasol [facility] 0.05 % 0.05 % 0.05 % da topical topical topical Medica l cream APPLY cream APPLY cream Group A THIN A THIN APPLY A LAYER TO LAYER TO THIN LAYER THE THE TO THE AFFECTED AFFECTED AFFECTED AREA(S) AREA(S) AREA(S) TOPICALLY TOPICALLY TOPICALLY TWICE DAILY TWICE DAILY TWICE DAILY cyanocobala cyanocobala No cyanocobal [facility] min (vit min (vit mariano (vit da B-12) 1,000 B-12) 1,000 B-12) Medical mcg/mL mcg/mL 1,000 Group injection injection mcg/mL solution solution injection INJECT 1 ML INJECT 1 ML solution ONCE EVERY ONCE EVERY INJECT 1 MONTH MONTH ML ONCE DIRECTED DIRECTED EVERY SUBCUTANEOU SUBCUTANEOU MONTH SLY SLY DIRECTED SUBCUTANEO USLY latanoprost latanoprost No latanopros [facility] 0.005 % eye 0.005 % eye t 0.005 % da drops drops eye drops Medical INSTILL 1 INSTILL 1 INSTILL 1 Group DROP INTO DROP INTO DROP INTO EACH EYE AT EACH EYE AT EACH EYE BEDTIME BEDTIME AT BEDTIME Christy-Claudia Christy-Claudia No Christy-Cluadia [facility] 0.8 mg 0.8 mg 0.8 mg da tablet TAKE tablet TAKE tablet Medical 1 TABLET BY 1 TABLET BY TAKE 1 Group MOUTH ONCE MOUTH ONCE TABLET BY DAILY DAILY MOUTH ONCE DAILY sertraline sertraline No sertraline [facility] 50 mg 50 mg 50 mg da tablet TAKE tablet TAKE tablet Medical 1 TABLET BY 1 TABLET BY TAKE 1 Group MOUTH ONCE MOUTH ONCE TABLET BY DAILY DAILY MOUTH ONCE DAILY Tylenol Tylenol No 2 Q8H Tylenol [facility] Arthritis Arthritis Arthritis da Pain 650 mg Pain 650 mg Pain 650 Medical tablet,exte tablet,exte mg G roup nded nded tablet,ext release release ended Take 2 Take 2 release tablets tablets Take 2 every 8 every 8 tablets hours by hours by every 8 oral route. oral route. hours by oral route. amlodipine amlodipine No amlodipine [facility] 5 mg tablet 5 mg tablet 5 mg d a TAKE 1 TAKE 1 tablet Medical TABLET BY TABLET BY TAKE 1 Gabe up MOUTH ONCE MOUTH ONCE TABLET BY DAILY DAILY MOUTH ONCE DAILY aspirin 81 aspirin 81 No 1 Q1D aspirin 81 [facility] mg mg mg da tablet,priyank tablet,priyank tablet,del Medical yed release yed release ayed G roup Take 1 Take 1 release tablet tablet Take 1 every day every day tablet by oral by oral every day route as route as by oral directed. directed. route as directed. carbidopa carbidopa No carbidopa [facility] 25 25 25 da mg-levodopa mg-levodopa mg-levodop Medical 100 mg 100 mg a 100 mg Group tablet TAKE tablet TAKE tablet 1 TABLET BY 1 TABLET BY TAKE 1 MOUTH THREE MOUTH THREE TABLET BY TIMES DAILY TIMES DAILY MOUTH THREE TIMES DAILY carvedilol carvedilol No carvedilol [facility] 6.25 mg 6.25 mg 6.25 mg da tablet TAKE tablet TAKE tablet Medical 1 TABLET BY 1 TABLET BY TAKE 1 Group MOUTH IN MOUTH IN TABLET BY THE MORNING THE MORNING MOUTH IN AND 1 IN AND 1 IN THE THE EVENING THE EVENING MORNING AND 1 IN THE EVENING clobetasol clobetasol No clobetasol [facility] 0.05 % 0.05 % 0.05 % da topical topical topical Medica l cream APPLY cream APPLY cream Group A THIN A THIN APPLY A LAYER TO LAYER TO THIN LAYER THE THE TO THE AFFECTED AFFECTED AFFECTED AREA(S) AREA(S) AREA(S) TOPICALLY TOPICALLY TOPICALLY TWICE DAILY TWICE DAILY TWICE DAILY cyanocobala cyanocobala No cyanocobal [place] min (vit min (vit mariano (vit da B-12) 1,000 B-12) 1,000 B-12) Medical mcg/mL mcg/mL 1,000 Group injection injection mcg/mL solution solution injection INJECT 1 ML INJECT 1 ML solution SUBCUTANEOU SUBCUTANEOU INJECT 1 SLY ONCE SLY ONCE ML EVERY MONTH EVERY MONTH SUBCUTANEO DIRECTED DIRECTED USLY ONCE EVERY MONTH DIRECTED latanoprost latanoprost No latanopros [facility] 0.005 % eye 0.005 % eye t 0.005 % da drops drops eye drops Medical INSTILL 1 INSTILL 1 INSTILL 1 Group DROP INTO DROP INTO DROP INTO EACH EYE AT EACH EYE AT EACH EYE BEDTIME BEDTIME AT BEDTIME nitrofurant nitrofurant No nitrofuran [facility] oin oin toin da macrocrysta macrocrysta macrocryst Medical l 50 mg l 50 mg al 50 mg Group capsule capsule capsule Take 1 Take 1 Take 1 capsule 3 capsule 3 capsule 3 times a times a times a week by week by week by oral route oral route oral route for 30 for 30 for 30 days. days. days. Christy-Claudia Christy-Claudia No Christy-Claudia [facility] 0.8 mg 0.8 mg 0.8 mg da tablet TAKE tablet TAKE tablet Medical 1 TABLET BY 1 TABLET BY TAKE 1 Group MOUTH ONCE MOUTH ONCE TABLET BY DAILY DAILY MOUTH ONCE DAILY sertraline sertraline No sertraline [facility] 50 mg 50 mg 50 mg da tablet TAKE tablet TAKE tablet Medical 1 TABLET BY 1 TABLET BY TAKE 1 Group MOUTH ONCE MOUTH ONCE TABLET BY DAILY DAILY MOUTH ONCE DAILY Tylenol Tylenol No 2 Q8H Tylenol [facility] Arthritis Arthritis Arthritis da Pain 650 mg Pain 650 mg Pain 650 Medical tablet,exte tablet,exte mg G roup nded nded tablet,ext release release ended Take 2 Take 2 release tablets tablets Take 2 every 8 every 8 tablets hours by hours by every 8 oral route. oral route. hours by oral route. albuterol albuterol No albuterol [facility] sulfate HFA sulfate HFA sulfate da 90 90 HFA 90 Medical mcg/actuati mcg/actuati mcg/actuat Group on aerosol on aerosol ion inhaler inhaler aerosol INHALE 2 INHALE 2 inhaler PUFFS BY PUFFS BY INHALE 2 MOUTH EVERY MOUTH EVERY PUFFS BY 4 HOURS 4 HOURS MOUTH NEEDED NEEDED EVERY 4 HOURS NEEDED amlodipine amlodipine No amlodipine [facility] 5 mg tablet 5 mg tablet 5 mg d a TAKE 1 TAKE 1 tablet Medical TABLET BY TABLET BY TAKE 1 Gabe up MOUTH ONCE MOUTH ONCE TABLET BY DAILY DAILY MOUTH ONCE DAILY aspirin 81 aspirin 81 No 1 Q1D aspirin 81 [facility] mg mg mg da tablet,priyank tablet,priyank tablet,del Medical yed release yed release ayed G roup Take 1 Take 1 release tablet tablet Take 1 every day every day tablet by oral by oral every day route as route as by oral directed. directed. route as directed. carbidopa carbidopa No carbidopa [facility] 25 25 25 da mg-levodopa mg-levodopa mg-levodop Medical 100 mg 100 mg a 100 mg Group tablet TAKE tablet TAKE tablet 1 TABLET BY 1 TABLET BY TAKE 1 MOUTH THREE MOUTH THREE TABLET BY TIMES DAILY TIMES DAILY MOUTH THREE TIMES DAILY carvedilol carvedilol No carvedilol [facility] 6.25 mg 6.25 mg 6.25 mg da tablet TAKE tablet TAKE tablet Medical 1 TABLET BY 1 TABLET BY TAKE 1 Group MOUTH IN MOUTH IN TABLET BY THE MORNING THE MORNING MOUTH IN AND 1 IN AND 1 IN THE THE EVENING THE EVENING MORNING AND 1 IN THE EVENING latanoprost latanoprost No latanopros [facility] 0.005 % eye 0.005 % eye t 0.005 % da drops drops eye drops Medical INSTILL 1 INSTILL 1 INSTILL 1 Group DROP INTO DROP INTO DROP INTO EACH EYE AT EACH EYE AT EACH EYE BEDTIME BEDTIME AT BEDTIME nitrofurant nitrofurant No nitrofuran [place] oin oin toin da macrocrysta macrocrysta macrocryst Medical l 50 mg l 50 mg al 50 mg Group capsule capsule capsule Take 1 Take 1 Take 1 capsule 3 capsule 3 capsule 3 times a times a times a week by week by week by oral route oral route oral route for 30 for 30 for 30 days. days. days. ondansetron ondansetron No 1 Q5H ondansetro [facility] 4 mg 4 mg n 4 mg da disintegrat disintegrat disintegra Medical ing tablet ing tablet ting Gabe up Place 1 Place [address] 1 every 4-6 every 4-6 tablet hours by hours by every 4-6 translingua translingua hours by l route as l route as translingu needed for needed for al route 3 days. 3 days. as needed for 3 days. sertraline sertraline No sertraline [facility] 50 mg 50 mg 50 mg da tablet TAKE tablet TAKE tablet Medical 1 TABLET BY 1 TABLET BY TAKE 1 Group MOUTH ONCE MOUTH ONCE TABLET BY DAILY DAILY MOUTH ONCE DAILY Tylenol Tylenol No 2 Q8H Tylenol [facility] Arthritis Arthritis Arthritis da Pain 650 mg Pain 650 mg Pain 650 Medical tablet,exte tablet,exte mg G roup nded nded tablet,ext release release ended Take 2 Take 2 release tablets tablets Take 2 every 8 every 8 tablets hours by hours by every 8 oral route. oral route. hours by oral route. albuterol albuterol No albuterol [facility] sulfate HFA sulfate HFA sulfate da 90 90 HFA 90 Medical mcg/actuati mcg/actuati mcg/actuat Group on aerosol on aerosol ion inhaler inhaler aerosol INHALE 2 INHALE 2 inhaler PUFFS BY PUFFS BY INHALE 2 MOUTH EVERY MOUTH EVERY PUFFS BY 4 HOURS 4 HOURS MOUTH NEEDED NEEDED EVERY 4 HOURS NEEDED amlodipine amlodipine No amlodipine [facility] 5 mg tablet 5 mg tablet 5 mg d a TAKE 1 TAKE 1 tablet Medical TABLET BY TABLET BY TAKE 1 Gabe up MOUTH ONCE MOUTH ONCE TABLET BY DAILY DAILY MOUTH ONCE DAILY aspirin 81 aspirin 81 No 1 Q1D aspirin 81 [place] mg mg mg da tablet,priyank tablet,priyank tablet,del Medical yed release yed release ayed G roup Take 1 Take 1 release tablet tablet Take 1 every day every day tablet by oral by oral every day route as route as by oral directed. directed. route as directed. carbidopa carbidopa No carbidopa [facility] 25 25 25 da mg-levodopa mg-levodopa mg-levodop Medical 100 mg 100 mg a 100 mg Group tablet TAKE tablet TAKE tablet 1 TABLET BY 1 TABLET BY TAKE 1 MOUTH THREE MOUTH THREE TABLET BY TIMES DAILY TIMES DAILY MOUTH THREE TIMES DAILY carvedilol carvedilol No carvedilol [facility] 6.25 mg 6.25 mg 6.25 mg da tablet TAKE tablet TAKE tablet Medical 1 TABLET BY 1 TABLET BY TAKE 1 Group MOUTH IN MOUTH IN TABLET BY THE MORNING THE MORNING MOUTH IN AND 1 IN AND 1 IN THE THE EVENING THE EVENING MORNING AND 1 IN THE EVENING latanoprost latanoprost No latanopros [facility] 0.005 % eye 0.005 % eye t 0.005 % da drops drops eye drops Medical INSTILL 1 INSTILL 1 INSTILL 1 Group DROP INTO DROP INTO DROP INTO EACH EYE AT EACH EYE AT EACH EYE BEDTIME BEDTIME AT BEDTIME nitrofurant nitrofurant No nitrofuran [place] oin oin toin da macrocrysta macrocrysta macrocryst Medical l 50 mg l 50 mg al 50 mg Group capsule capsule capsule Take 1 Take 1 Take 1 capsule 3 capsule 3 capsule 3 times a times a times a week by week by week by oral route oral route oral route for 30 for 30 for 30 days. days. days. ondansetron ondansetron No 1 Q5H ondansetro [facility] 4 mg 4 mg n 4 mg da disintegrat disintegrat disintegra Medical ing tablet ing tablet ting Gabe up Place 1 Place [address] 1 every 4-6 every 4-6 tablet hours by hours by every 4-6 translingua translingua hours by l route as l route as translingu needed for needed for al route 3 days. 3 days. as needed for 3 days. sertraline sertraline No sertraline [facility] 50 mg 50 mg 50 mg da tablet TAKE tablet TAKE tablet Medical 1 TABLET BY 1 TABLET BY TAKE 1 Group MOUTH ONCE MOUTH ONCE TABLET BY DAILY DAILY MOUTH ONCE DAILY Tylenol Tylenol No 2 Q8H Tylenol [place] Arthritis Arthritis Arthritis da Pain 650 mg Pain 650 mg Pain 650 Medical tablet,exte tablet,exte mg G roup nded nded tablet,ext release release ended Take 2 Take 2 release tablets tablets Take 2 every 8 every 8 tablets hours by hours by every 8 oral route. oral route. hours by oral route. albuterol albuterol No albuterol [place] sulfate HFA sulfate HFA sulfate da 90 90 HFA 90 Medical mcg/actuati mcg/actuati mcg/actuat Group on aerosol on aerosol ion inhaler inhaler aerosol INHALE 2 INHALE 2 inhaler PUFFS BY PUFFS BY INHALE 2 MOUTH EVERY MOUTH EVERY PUFFS BY 4 HOURS 4 HOURS MOUTH NEEDED NEEDED EVERY 4 HOURS NEEDED amlodipine amlodipine No amlodipine [facility] 5 mg tablet 5 mg tablet 5 mg d a TAKE 1 TAKE 1 tablet Medical TABLET BY TABLET BY TAKE 1 [facility] MOUTH ONCE MOUTH ONCE TABLET BY DAILY DAILY MOUTH ONCE DAILY aspirin 81 aspirin 81 No 1 Q1D aspirin 81 [facility] mg mg mg da tablet,priyank tablet,priyank tablet,del Medical yed release yed release ayed G roup Take 1 Take 1 release tablet tablet Take 1 every day every day tablet by oral by oral every day route as route as by oral directed. directed. route as directed. carbidopa carbidopa No carbidopa [facility] 25 25 25 da mg-levodopa mg-levodopa mg-levodop Medical 100 mg 100 mg a 100 mg Group tablet TAKE tablet TAKE tablet 1 TABLET BY 1 TABLET BY TAKE 1 MOUTH THREE MOUTH THREE TABLET BY TIMES DAILY TIMES DAILY MOUTH THREE TIMES DAILY carvedilol carvedilol No carvedilol [facility] 6.25 mg 6.25 mg 6.25 mg da tablet TAKE tablet TAKE tablet Medical 1 TABLET BY 1 TABLET BY TAKE 1 Group MOUTH IN MOUTH IN TABLET BY THE MORNING THE MORNING MOUTH IN AND 1 IN AND 1 IN THE THE EVENING THE EVENING MORNING AND 1 IN THE EVENING latanoprost latanoprost No latanopros [facility] 0.005 % eye 0.005 % eye t 0.005 % da drops drops eye drops Medical INSTILL 1 INSTILL 1 INSTILL 1 Group DROP INTO DROP INTO DROP INTO EACH EYE AT EACH EYE AT EACH EYE BEDTIME BEDTIME AT BEDTIME nitrofurant nitrofurant No nitrofuran [facility] oin oin toin da macrocrysta macrocrysta macrocryst Medical l 50 mg l 50 mg al 50 mg Group capsule capsule capsule Take 1 Take 1 Take 1 capsule 3 capsule 3 capsule 3 times a times a times a week by week by week by oral route oral route oral route for 30 for 30 for 30 days. days. days. ondansetron ondansetron No 1 Q5H ondansetro [facility] 4 mg 4 mg n 4 mg da disintegrat disintegrat disintegra Medical ing tablet ing tablet ting [facility] Place 1 Place [address] 1 every 4-6 every 4-6 tablet hours by hours by every 4-6 translingua translingua hours by l route as l route as translingu needed for needed for al route 3 days. 3 days. as needed for 3 days. sertraline sertraline No sertraline [facility] 50 mg 50 mg 50 mg da tablet TAKE tablet TAKE tablet Medical 1 TABLET BY 1 TABLET BY TAKE 1 Group MOUTH ONCE MOUTH ONCE TABLET BY DAILY DAILY MOUTH ONCE DAILY Tylenol Tylenol No 2 Q8H Tylenol [facility] Arthritis Arthritis Arthritis da Pain 650 mg Pain 650 mg Pain 650 Medical tablet,exte tablet,exte mg G roup nded nded tablet,ext release release ended Take 2 Take 2 release tablets tablets Take 2 every 8 every 8 tablets hours by hours by every 8 oral route. oral route. hours by oral route. albuterol albuterol No albuterol [facility] sulfate HFA sulfate HFA sulfate da 90 90 HFA 90 Medical mcg/actuati mcg/actuati mcg/actuat Group on aerosol on aerosol ion inhaler inhaler aerosol INHALE 2 INHALE 2 inhaler PUFFS BY PUFFS BY INHALE 2 MOUTH EVERY MOUTH EVERY PUFFS BY 4 HOURS 4 HOURS MOUTH NEEDED NEEDED EVERY 4 HOURS NEEDED amlodipine amlodipine No amlodipine [facility] 5 mg tablet 5 mg tablet 5 mg d a TAKE 1 TAKE 1 tablet Medical TABLET BY TABLET BY TAKE 1 [facility] MOUTH ONCE MOUTH ONCE TABLET BY DAILY DAILY MOUTH ONCE DAILY aspirin 81 aspirin 81 No 1 Q1D aspirin 81 [facility] mg mg mg da tablet,priyank tablet,priyank tablet,del Medical yed release yed release ayed G roup Take 1 Take 1 release tablet tablet Take 1 every day every day tablet by oral by oral every day route as route as by oral directed. directed. route as directed. carbidopa carbidopa No carbidopa [facility] 25 25 25 da mg-levodopa mg-levodopa mg-levodop Medical 100 mg 100 mg a 100 mg Group tablet TAKE tablet TAKE tablet 1 TABLET BY 1 TABLET BY TAKE 1 MOUTH THREE MOUTH THREE TABLET BY TIMES DAILY TIMES DAILY MOUTH THREE TIMES DAILY carvedilol carvedilol No carvedilol [facility] 6.25 mg 6.25 mg 6.25 mg da tablet TAKE tablet TAKE tablet Medical 1 TABLET BY 1 TABLET BY TAKE 1 Group MOUTH IN MOUTH IN TABLET BY THE MORNING THE MORNING MOUTH IN AND 1 IN AND 1 IN THE THE EVENING THE EVENING MORNING AND 1 IN THE EVENING cyanocobala cyanocobala No 1000mic Q4W cyanocobal [facility] min (vit min (vit rogram( mariano (vit da B-12) 1,000 B-12) 1,000 s) B-12) Medical mcg/mL mcg/mL 1,000 Group injection injection mcg/mL solution solution injection Inject 1000 Inject 1000 solution micrograms micrograms Inject every 4 every 4 1000 weeks by weeks by micrograms subcutaneou subcutaneou every 4 s route. s route. weeks by subcutaneo us route. latanoprost latanoprost No latanopros [facility] 0.005 % eye 0.005 % eye t 0.005 % da drops drops eye drops Medical INSTILL 1 INSTILL 1 INSTILL 1 Group DROP INTO DROP INTO DROP INTO EACH EYE AT EACH EYE AT EACH EYE BEDTIME BEDTIME AT BEDTIME meclizine meclizine No meclizine [facility] 25 mg 25 mg 25 mg da tablet PRN tablet PRN tablet PRN Medical Group ondansetron ondansetron No ondansetro [facility] 4 mg 4 mg n 4 mg da disintegrat disintegrat disintegra Medical ing tablet ing tablet ting [facility] DISSOLVE 1 DISSOLVE 1 tablet TABLET ON TABLET ON DISSOLVE 1 THE TONGUE THE TONGUE TABLET ON EVERY 4 TO EVERY 4 TO THE TONGUE 6 HOURS FOR 6 HOURS FOR EVERY 4 TO 3 DAYS 3 DAYS 6 HOURS NEEDED NEEDED FOR 3 DAYS NEEDED Christy-Claudia Christy-Claudia No Christy-Claudia [facility] one tablet one tablet one tablet da a day a day a day Medical Group sertraline sertraline No sertraline [facility] 50 mg 50 mg 50 mg da tablet TAKE tablet TAKE tablet Medical 1 TABLET BY 1 TABLET BY TAKE 1 Group MOUTH ONCE MOUTH ONCE TABLET BY DAILY DAILY MOUTH ONCE DAILY sulfamethox sulfamethox No sulfametho [facility] azole 800 azole 800 xazole 800 da mg-trimetho mg-trimetho mg-trimeth Medical prim 160 mg prim 160 mg oprim 160 Group tablet TAKE tablet TAKE mg tablet 1 TABLET BY 1 TABLET BY TAKE 1 MOUTH TWICE MOUTH TWICE TABLET BY DAILY FOR DAILY FOR MOUTH URINARY URINARY TWICE INFECTION INFECTION DAILY FOR URINARY INFECTION Tylenol Tylenol No 2 Q8H Tylenol [facility] Arthritis Arthritis Arthritis da Pain 650 mg Pain 650 mg Pain 650 Medical tablet,exte tablet,exte mg G roup nded nded tablet,ext release release ended Take 2 Take 2 release tablets tablets Take 2 every 8 every 8 tablets hours by hours by every 8 oral route. oral route. hours by oral route. Immunizations Ordered Immunization Filled Immunization Date Status Commen ts Source Name Name Influenza vaccine, Influenza vaccine, 2022-04-25 Completed [facility] quadrivalent, quadrivalent, 12:24:00 [facility] Group adjuvanted adjuvanted Influenza vaccine, Influenza vaccine, 2022-04-25 Completed [facility] quadrivalent, quadrivalent, 12:24:00 [facility] Group adjuvanted adjuvanted Influenza vaccine, Influenza vaccine, 2022-04-25 Completed [facility] quadrivalent, quadrivalent, 12:24:00 [facility] Group adjuvanted adjuvanted Influenza vaccine, Influenza vaccine, 2022-04-25 Completed [facility] quadrivalent, quadrivalent, 12:24:00 [facility] Group adjuvanted adjuvanted Influenza vaccine, Influenza vaccine, 2022-04-25 Completed [facility] quadrivalent, quadrivalent, 12:24:00 [facility] Group adjuvanted adjuvanted Influenza vaccine, Influenza vaccine, 2022-04-24 Completed [facility] quadrivalent, quadrivalent, 16:38:01 [facility] Group adjuvanted adjuvanted Influenza vaccine, Influenza vaccine, 2022-04-24 Completed [facility] quadrivalent, quadrivalent, 16:38:01 [facility] Group adjuvanted adjuvanted Influenza vaccine, Influenza vaccine, 2022-04-24 Completed [facility] quadrivalent, quadrivalent, 16:38:01 [facility] Group adjuvanted adjuvanted Influenza vaccine, Influenza vaccine, 2022-04-24 Completed [facility] quadrivalent, quadrivalent, 16:38:01 [facility] Group adjuvanted adjuvanted Influenza vaccine, Influenza vaccine, 2022-04-24 Completed [facility] quadrivalent, quadrivalent, 16:38:01 [facility] Group adjuvanted adjuvanted COVID-19, mRNA, COVID-19, mRNA, 2021-05-15 Completed Benito adriel LNP-S, PF, 30 LNP-S, PF, 30 00:00:00 [facility] Group mcg/0.3 mL dose mcg/0.3 mL dose ([employer]) ([employer]) influenza, influenza, 2021-05-15 Completed [facility] injectable, injectable, 00:00:00 [facility] Grou p quadrivalent quadrivalent COVID-19, mRNA, COVID-19, mRNA, 2021-05-15 Completed Benito adriel LNP-S, PF, 30 LNP-S, PF, 30 00:00:00 [facility] Group mcg/0.3 mL dose mcg/0.3 mL dose (Pfizer-BioNTech) (Pfizer-BioNT[employer]) influenza, influenza, 2021-05-15 Completed [facility] injectable, injectable, 00:00:00 [facility] Grou p quadrivalent quadrivalent COVID-19, mRNA, COVID-19, mRNA, 2021-05-15 Completed Benito adriel LNP-S, PF, 30 LNP-S, PF, 30 00:00:00 [facility] Group mcg/0.3 mL dose mcg/0.3 mL dose (Pfizer-BioNTech) (Pfizer-BioNTech) influenza, influenza, 2021-05-15 Completed [facility] injectable, injectable, 00:00:00 [facility] Grou p quadrivalent quadrivalent COVID-19, mRNA, COVID-19, mRNA, 2021-05-15 Completed Benito adriel LNP-S, PF, 30 LNP-S, PF, 30 00:00:00 [facility] Group mcg/0.3 mL dose mcg/0.3 mL dose (Pfizer-BioNTech) (Pfizer-BioNTech) influenza, influenza, 2021-05-15 Completed [facility] injectable, injectable, 00:00:00 [facility] Grou p quadrivalent quadrivalent COVID-19, mRNA, COVID-19, mRNA, 2021-05-15 Completed Benito adriel LNP-S, PF, 30 LNP-S, PF, 30 00:00:00 [facility] Group mcg/0.3 mL dose mcg/0.3 mL dose (Pfizer-BioNTech) (Pfizer-BioNTech) influenza, influenza, 2021-05-15 Completed [facility] injectable, injectable, 00:00:00 [facility] Grou p quadrivalent quadrivalent COVID-19, mRNA, COVID-19, mRNA, 2021-05-15 Completed Benito adriel LNP-S, PF, 30 LNP-S, PF, 30 00:00:00 [facility] Group mcg/0.3 mL dose mcg/0.3 mL dose (Pfizer-BioNTech) (Pfizer-BioNTech) influenza, influenza, 2021-05-15 Completed [facility] injectable, injectable, 00:00:00 [facility] Grou p quadrivalent quadrivalent COVID-19, mRNA, COVID-19, mRNA, 2020-07-25 Completed Benito adriel LNP-S, PF, 30 LNP-S, PF, 30 00:00:00 [facility] Group mcg/0.3 mL dose mcg/0.3 mL dose (Pf[employer]-Bio[employer]) (Pfizer-BioNTech) COVID-19, mRNA, COVID-19, mRNA, 2020-07-25 Completed Ben[facility] adriel LNP-S, PF, 30 LNP-S, PF, 30 00:00:00 [facility] Group mcg/0.3 mL dose mcg/0.3 mL dose (Pfizer-BioNTech) (Pfizer-BioNTech) COVID-19, mRNA, COVID-19, mRNA, 2020-07-25 Completed Ben[facility] adriel LNP-S, PF, 30 LNP-S, PF, 30 00:00:00 [facility] Group mcg/0.3 mL dose mcg/0.3 mL dose (Pfizer-BioNTech) (Pfizer-BioNTech) COVID-19, mRNA, COVID-19, mRNA, 2020-07-25 Completed [facility] adriel LNP-S, PF, 30 LNP-S, PF, 30 00:00:00 [facility] Group mcg/0.3 mL dose mcg/0.3 mL dose (Pfizer-BioNTech) (Pfizer-BioNTech) COVID-19, mRNA, COVID-19, mRNA, 2020-07-25 Completed Ben[facility] adriel LNP-S, PF, 30 LNP-S, PF, 30 00:00:00 [facility] Group mcg/0.3 mL dose mcg/0.3 mL dose (Pfizer-BioNTech) (Pfizer-BioNTech) COVID-19, mRNA, COVID-19, mRNA, 2020-07-25 Completed Benito adriel LNP-S, PF, 30 LNP-S, PF, 30 00:00:00 [facility] Group mcg/0.3 mL dose mcg/0.3 mL dose (Pfizer-BioNTech) (Pfizer-BioNTech) COVID-19, mRNA, COVID-19, mRNA, 2020-07-04 Completed Benito adriel LNP-S, PF, 30 LNP-S, PF, 30 00:00:00 [facility] Group mcg/0.3 mL dose mcg/0.3 mL dose (Pfizer-BioNTech) (Pfizer-BioNTech) COVID-19, mRNA, COVID-19, mRNA, 2020-07-04 Completed Benito adriel LNP-S, PF, 30 LNP-S, PF, 30 00:00:00 [facility] Group mcg/0.3 mL dose mcg/0.3 mL dose (Pfizer-BioNTech) (Pfizer-BioNTech) COVID-19, mRNA, COVID-19, mRNA, 2020-07-04 Completed Benito adriel LNP-S, PF, 30 LNP-S, PF, 30 00:00:00 [facility] Group mcg/0.3 mL dose mcg/0.3 mL dose (Pfizer-BioNTech) (Pfizer-BioNTech) COVID-19, mRNA, COVID-19, mRNA, 2020-07-04 Completed Benito adriel LNP-S, PF, 30 LNP-S, PF, 30 00:00:00 [facility] Group mcg/0.3 mL dose mcg/0.3 mL dose (Pfizer-BioNTech) (Pfizer-BioNTech) COVID-19, mRNA, COVID-19, mRNA, 2020-07-04 Completed Benito adriel LNP-S, PF, 30 LNP-S, PF, 30 00:00:00 [facility] Group mcg/0.3 mL dose mcg/0.3 mL dose (Pfizer-BioNTech) (Pfizer-BioNTech) COVID-19, mRNA, COVID-19, mRNA, 2020-07-04 Completed Benito adriel LNP-S, PF, 30 LNP-S, PF, 30 00:00:00 [facility] Group mcg/0.3 mL dose mcg/0.3 mL dose (Pfizer-BioNTech) (Pfizer-BioNTech) influenza, influenza, 2020-03-26 Completed [facility] injectable, injectable, 00:00:00 [facility] Grou p quadrivalent quadrivalent influenza, influenza, 2020-03-26 Completed [facility] injectable, injectable, 00:00:00 [facility] Grou p quadrivalent quadrivalent influenza, influenza, 2020-03-26 Completed [facility] injectable, injectable, 00:00:00 [facility] Grou p quadrivalent quadrivalent influenza, influenza, 2020-03-26 Completed [facility] injectable, injectable, 00:00:00 [facility] Grou p quadrivalent quadrivalent influenza, influenza, 2020-03-26 Completed [facility] injectable, injectable, 00:00:00 [facility] Grou p quadrivalent quadrivalent influenza, influenza, 2020-03-26 Completed [facility] injectable, injectable, 00:00:00 [facility] Grou p quadrivalent quadrivalent influenza, high dose influenza, high 2019-04-15 Completed [facility] seasonal dose seasonal 14:33:07 Medical Gabe up influenza, high dose influenza, high 2019-04-15 Completed [facility] seasonal dose seasonal 14:33:07 Medical G[facility] up influenza, high dose influenza, high 2019-04-15 Completed [facility] seasonal dose seasonal 14:33:07 Medical G[facility] up influenza, high dose influenza, high 2019-04-15 Completed [facility] seasonal dose seasonal 14:33:07 Medical Gabe up influenza, high dose influenza, high 2019-04-15 Completed [facility] seasonal dose seasonal 14:33:07 Medical Gabe up influenza, high dose influenza, high 2019-04-15 Completed [facility] seasonal dose seasonal 14:33:07 Medical G[facility] up influenza, high dose influenza, high 2015-03-15 Completed [facility] seasonal dose seasonal 00:00:00 Medical G[facility] up influenza, high dose influenza, high 2015-03-15 Completed [facility] seasonal dose seasonal 00:00:00 Medical G[facility] up influenza, high dose influenza, high 2015-03-15 Completed [facility] seasonal dose seasonal 00:00:00 Medical G[facility] up influenza, high dose influenza, high 2015-03-15 Completed [facility] seasonal dose seasonal 00:00:00 Medical Gabe up influenza, high dose influenza, high 2015-03-15 Completed [facility] seasonal dose seasonal 00:00:00 Medical G[facility] up influenza, high dose influenza, high 2015-03-15 Completed [facility] seasonal dose seasonal 00:00:00 Medical G[facility] up influenza, high dose influenza, high 2013-03-31 Completed [facility] seasonal dose seasonal 00:00:00 Medical Gabe up influenza, high dose influenza, high 2013-03-31 Completed [facility] seasonal dose seasonal 00:00:00 Medical Gabe up influenza, high dose influenza, high 2013-03-31 Completed [facility] seasonal dose seasonal 00:00:00 Medical Gabe up influenza, high dose influenza, high 2013-03-31 Completed [facility] seasonal dose seasonal 00:00:00 Medical [facility] up influenza, high dose influenza, high 2013-03-31 Completed [facility] seasonal dose seasonal 00:00:00 Medical [facility] up influenza, high dose influenza, high 2013-03-31 Completed [facility] seasonal dose seasonal 00:00:00 Medical [facility] Vital Signs Vital Name Observation Time Observation Value Comments Source BP Diastolic 2022-07-07 90 mm[Hg] [facility] 00:00:[facility] Height 2022-07-07 61 [in_i] [facility] 00:00:00 [facility] BP Systolic 2022-07-07 153 mm[Hg] [facility] 00:00:00 [facility] BP Diastolic 2022-06-24 90 mm[Hg] [facility] 00:00:00 [facility] Height 2022-06-24 61 [in_i] [facility] 00:00:00 [facility] BMI (Body Mass 2022-06-24 27.4 kg/m2 [facility] Index) 00:00:00 [facility] BP Systolic 2022-06-24 152 mm[Hg] [facility] 00:00:00 [facility] Body Weight 2022-06-24 2320 [oz_av] [facility] 00:00:00 [facility] BP Diastolic 2022-06-23 65 mm[Hg] [facility] 00:00:00 [facility] Height 2022-06-23 61 [in_i] [facility] 00:00:00 [facility] BMI (Body Mass 2022-06-23 27.4 kg/m2 [facility] Index) 00:00:00 [facility] BP Systolic 2022-06-23 134 mm[Hg] [facility] 00:00:00 [facility] Body Weight 2022-06-23 2320 [oz_av] [facility] 00:00:00 [facility] BP Diastolic 2022-06-20 95 mm[Hg] [facility] 00:00:00 [facility] Height 2022-06-20 61 [in_i] [facility] 00:00:00 [facility] BMI (Body Mass 2022-06-20 27.4 kg/m2 [facility] Index) 00:00:00 [facility] BP Systolic 2022-06-20 201 mm[Hg] [facility] 00:00:00 [facility] Body Weight 2022-06-20 2321 [oz_av] [facility] 00:00:00 [facility] BP Diastolic 2022-04-24 72 mm[Hg] [facility] 00:00:00 [facility] Height 2022-04-24 61 [in_i] [facility] 00:00:00 [facility] BMI (Body Mass 2022-04-24 25.2 kg/m2 [facility] Index) 00:00:00 [facility] BP Systolic 2022-04-24 160 mm[Hg] [facility] 00:00:00 [facility] Body Weight 2022-04-24 2137 [oz_av] [facility] 00:00:00 [facility] BP Diastolic 2022-02-10 67 mm[Hg] [facility] 00:00:00 [facility] Height 2022-02-10 61 [in_i] [facility] 00:00:00 [facility] BMI (Body Mass 2022-02-10 26.7 kg/m2 [facility] Index) 00:00:00 [facility] BP Systolic 2022-02-10 133 mm[Hg] [facility] 00:00:00 [facility] Body Weight 2022-02-10 2263 [oz_av] [facility] 00:00:00 [facility] BP Diastolic 2022-01-22 65 mm[Hg] [facility] 00:00:00 [facility] Height 2022-01-22 61 [in_i] [facility] 00:00:00 [facility] BMI (Body Mass 2022-01-22 26.7 kg/m2 [facility] Index) 00:00:00 [facility] BP Systolic 2022-01-22 133 mm[Hg] [facility] 00:00:00 [facility] Body Weight 2022-01-22 2263 [oz_av] [facility] 00:00:00 [facility] BP Diastolic 2022-01-01 66 mm[Hg] [facility] 00:00:00 [facility] Height 2022-01-01 61 [in_i] [facility] 00:00:00 [facility] BMI (Body Mass 2022-01-01 26.8 kg/m2 [facility] Index) 00:00:00 [facility] BP Systolic 2022-01-01 166 mm[Hg] [facility] 00:00:00 [facility] Body Weight 2022-01-01 2272 [oz_av] [facility] 00:00:00 [facility] BP Diastolic 2021-10-09 80 mm[Hg] [facility] 00:00:00 [facility] Height 2021-10-09 61 [in_i] [facility] 00:00:00 [facility] BMI (Body Mass 2021-10-09 26.5 kg/m2 [facility] Index) 00:00:00 [facility] BP Systolic 2021-10-09 153 mm[Hg] [facility] 00:00:00 [facility] Body Weight 2021-10-09 2241 [oz_av] [facility] 00:00:00 [facility] BP Diastolic 2021-06-12 75 mm[Hg] [facility] 00:00:00 [facility] Height 2021-06-12 61 [in_i] [facility] 00:00:00 [facility] BMI (Body Mass 2021-06-12 26.7 kg/m2 [facility] Index) 00:00:00 [facility] BP Systolic 2021-06-12 140 mm[Hg] [facility] 00:00:00 [facility] Body Weight 2021-06-12 2262 [oz_av] [facility] 00:00:00 [facility] BP Diastolic 2020 80 mm[Hg] [facility] 00:00:00 [facility] Height 2020 61 [in_i] [facility] 00:00:00 [facility] BMI (Body Mass 2020 24.6 kg/m2 [facility] Index) 00:00:00 [facility] BP Systolic 2020 150 mm[Hg] [facility] 00:00:00 [facility] Body Weight 2020 2083 [oz_av] [facility] 00:00:00 [facility] BP Diastolic 2020-07-26 82 mm[Hg] [facility] 00:00:00 [facility] Height 2020-07-26 61 [in_i] [facility] 00:00:00 [facility] BMI (Body Mass 2020-07-26 25.5 kg/m2 [facility] Index) 00:00:00 [facility] BP Systolic 2020-07-26 146 mm[Hg] [facility] 00:00:00 [facility] Body Weight 2020-07-26 2163 [oz_av] [facility] 00:00:00 [facility] BP Diastolic 2020-05-21 65 mm[Hg] [facility] 00:00:00 [facility] Height 2020-05-21 61 [in_i] [facility] 00:00:00 [facility] BMI (Body Mass 2020-05-21 24.9 kg/m2 [facility] Index) 00:00:00 [facility] BP Systolic 2020-05-21 128 mm[Hg] [facility] 00:00:00 [facility] Body Weight 2020-05-21 211 [oz_av] [facility] 00:00:00 [facility] BP Diastolic 2020-04-26 76 mm[Hg] [facility] 00:00:00 [facility] Height 2020-04-26 61 [in_i] [facility] 00:00:00 [facility] BMI (Body Mass 2020-04-26 24.8 kg/m2 [facility] Index) 00:00:00 [facility] BP Systolic 2020-04-26 137 mm[Hg] [facility] 00:00:00 [facility] Body Weight 2020-04-26 210 [oz_av] [facility] 00:00:00 [facility] BP Diastolic 2019-08-11 86 mm[Hg] [facility] 00:00:00 [facility] Height 2019-08-11 61 [in_i] [facility] 00:00:00 [facility] BMI (Body Mass 2019-08-11 24.9 kg/m2 [facility] Index) 00:00:00 [facility] BP Systolic 2019-08-11 153 mm[Hg] [facility] 00:00:00 [facility] Body Weight 2019-08-11 2112 [oz_av] [facility] 00:00:00 [facility] BP Diastolic 2019-05-26 83 mm[Hg] [facility] 00:00:00 [facility] Height 2019-05-26 61 [in_i] [facility] 00:00:00 [facility] BMI (Body Mass 2019-05-26 23.2 kg/m2 [facility] Index) 00:00:00 [facility] BP Systolic 2019-05-26 139 mm[Hg] [facility] 00:00:00 [facility] Body Weight 2019-05-26 1968 [oz_av] [facility] 00:00:00 [facility] BP Diastolic 2019-05-04 86 mm[Hg] [facility] 00:00:00 [facility] Height 2019-05-04 61 [in_i] [facility] 00:00:00 [facility] BMI (Body Mass 2019-05-04 23.3 kg/m2 [facility] Index) 00:00:00 [facility] BP Systolic 2019-05-04 145 mm[Hg] [facility] 00:00:00 [facility] Body Weight 2019-05-04 1972 [oz_av] [facility] 00:00:00 [facility] BP Diastolic 2019-04-13 70 mm[Hg] [facility] 00:00:00 [facility] Height 2019-04-13 61 [in_i] [facility] 00:00:00 [facility] BMI (Body Mass 2019-04-13 24 kg/m2 [facility] Index) 00:00:00 [facility] Group BP Systolic 2019-04-13 129 mm[Hg] [facility] 00:00:00 [facility] Body Weight 2019-04-13 2032 [oz_av] [facility] 00:00:00 [facility] BP Diastolic 2019-01-11 76 mm[Hg] [facility] 00:00:00 [facility] Height 2019-01-11 61 [in_i] [facility] 00:00:00 [facility] BP Systolic 2019-01-11 128 mm[Hg] [facility] 00:00:00 [facility] BP Diastolic 2018-09-27 67 mm[Hg] [facility] 00:00:00 [facility] Height 2018-09-27 61 [in_i] [facility] 00:00:00 [facility] BMI (Body Mass 2018-09-27 27.2 kg/m2 [facility] Index) 00:00:00 [facility] BP Systolic 2018-09-27 119 mm[Hg] [facility] 00:00:00 [facility] Body Weight 2018-09-27 2304 [oz_av] [facility] 00:00:00 [facility] BP Diastolic 2018-09-15 69 mm[Hg] [facility] 00:00:00 [facility] Height 2018-09-15 61 [in_i] [facility] 00:00:00 [facility] BMI (Body Mass 2018-09-15 23.6 kg/m2 [facility] Index) 00:00:00 [facility] BP Systolic 2018-09-15 138 mm[Hg] [facility] 00:00:00 [facility] Body Weight 2018-09-15 2000 [oz_av] [facility] 00:00:[facility] BP Diastolic 2018-06-29 75 mm[Hg] [facility] 00:00:00 [facility] Height 2018-06-29 61 [in_i] [facility] 00:00:00 [facility] BP Systolic 2018-06-29 148 mm[Hg] [facility] 00:00:00 [facility] Systolic blood 2022-05-30 141 mm[Hg] [facility] pressure 14:11:00 [facility] Diastolic blood 2022-05-30 81 mm[Hg] [facility] pressure 14:11:00 [facility] Heart rate 2022-05-30 59 /min [facility] 14:11:00 [facility] Body height 2022-05-30 154.9 cm [facility] 14:11:00 [facility] Body weight 2022-05-30 62.143 kg patient not able [facility] 14:11:00 to weigh, Hospital wheelchair bound BMI 2022-05-30 25.89 kg/m2 [facility] 14:11:00 Hospital Oxygen saturation 2022-02-26 98 /min [facility] in Arterial blood 19:12:00 Hospital by Pulse oximetry Procedures Procedure Date / Time Performing Clinician Source Performed XR, chest 2022-06-24 00:00:[address] [place] XR, chest, 2 view 2022-06-20 00:00:00 [facility] NM BRAIN SPECT W I 123 2022-02-26 20:34:00 Elva Dumont [facility] POC GLUCOSE 2022-02-26 19:15:00 Denise [facility] MRI BRAIN W WO CONTRAST 2022-02-26 18:51:36 Elva Dumont [facility] Shay MISCELLANEOUS REFERRAL 2022-02-24 15:07:00 Denise Cowart [facility] TEST DEXA 2020-05-21 00:00:00 [facility] unlisted imaging order 2019-10-18 00:00:00 [facility] unlisted imaging order 2019-05-04 00:00:00 [facility] Cataract Surgery 2012-06-15 00:00:00 [facility] Colonoscopy 2008-06-15 00:00:00 [facility] Hern[facility] Plan of Care Planned Activity Planned Date Details Comments Source Future Scheduled Test 2022-07-18 65+ PNEUMOCOCCAL [facility] 11:30:30 VACCINE (1 - PCV) [code = 65+ PNEUMOCOCCAL VACCINE (1 - PCV)] Future Scheduled Test 2022-07-18 SHINGLES VACCINES ([address] [place] [address] 11:30:30 of 2) [code = SHINGLES VACCINES (1 of 2)] Future Scheduled Test 2022-07-18 COVID-19 VACCINE ([address] [place] [address] 11:30:30 Booster for Pfizer series) [code = COVID-19 VACCINE (5 - Booster for Pfizer series)] Future Scheduled Test 2022-07-18 INFLUENZA VACCINE [facility] 11:30:30 [code = INFLUENZA VACCINE] Future Scheduled Test 2022-07-16 65+ PNEUMOCOCCAL [facility] 11:42:39 VACCINE (1 - PCV) [code = 65+ PNEUMOCOCCAL VACCINE (1 - PCV)] Future Scheduled Test 2022-07-16 SHINGLES VACCINES ([address] [place] [address] 11:42:39 of 2) [code = SHINGLES VACCINES (1 of 2)] Future Scheduled Test 2022-07-16 COVID-19 VACCINE ([address] [place] [address] 11:42:39 Booster for Pfizer series) [code = COVID-19 VACCINE (5 - Booster for Pfizer series)] Future Scheduled Test 2022-07-16 INFLUENZA VACCINE [facility] 11:42:39 [code = INFLUENZA VACCINE] Future Scheduled Test 2022-07-07 65+ PNEUMOCOCCAL [facility] 16:48:52 VACCINE (1 - PCV) [code = 65+ PNEUMOCOCCAL VACCINE (1 - PCV)] Future Scheduled Test 2022-07-07 SHINGLES VACCINES (1 [facility] 16:48:52 of 2) [code = SHINGLES VACCINES (1 of 2)] Future Scheduled Test 2022-07-07 COVID-19 VACCINE ([address] [place] [address] 16:48:52 Booster for Pfizer series) [code = COVID-19 VACCINE (5 - Booster for Pfizer series)] Future Scheduled Test 2022-07-07 INFLUENZA VACCINE [facility] 16:48:52 [code = INFLUENZA VACCINE] Future Scheduled Test 2022-07-07 65+ PNEUMOCOCCAL [facility] 16:48:52 VACCINE (1 - PCV) [code = 65+ PNEUMOCOCCAL VACCINE (1 - PCV)] Future Scheduled Test 2022-07-07 SHINGLES VACCINES (1 [facility] 16:48:52 of 2) [code = SHINGLES VACCINES (1 of 2)] Future Scheduled Test 2022-07-07 COVID-19 VACCINE ([address] [place] [address] 16:48:52 Booster for Pfizer series) [code = COVID-19 VACCINE (5 - Booster for Pfizer series)] Future Scheduled Test 2022-07-07 INFLUENZA VACCINE [facility] 16:48:52 [code = INFLUENZA VACCINE] Future Scheduled Test 2022-06-24 65+ PNEUMOCOCCAL [facility] 14:02:07 VACCINE (1 - PCV) [code = 65+ PNEUMOCOCCAL VACCINE (1 - PCV)] Future Scheduled Test 2022-06-24 SHINGLES VACCINES (1 [facility] 14:02:07 of 2) [code = SHINGLES VACCINES (1 of 2)] Future Scheduled Test 2022-06-24 COVID-19 VACCINE ([address] [place] [address] 14:02:07 Booster for Pfizer series) [code = COVID-19 VACCINE (5 - Booster for Pfizer series)] Future Scheduled Test 2022-06-24 INFLUENZA VACCINE [facility] 14:02:07 [code = INFLUENZA VACCINE] Future Scheduled Test 2022-06-24 65+ PNEUMOCOCCAL [facility] 14:02:07 VACCINE (1 - PCV) [code = 65+ PNEUMOCOCCAL VACCINE (1 - PCV)] Future Scheduled Test 2022-06-24 SHINGLES VACCINES (1 [facility] 14:02:07 of 2) [code = SHINGLES VACCINES (1 of 2)] Future Scheduled Test 2022-06-24 COVID-19 VACCINE ([address] [place] [address] 14:02:07 Booster for Pfizer series) [code = COVID-19 VACCINE (5 - Booster for Pfizer series)] Future Scheduled Test 2022-06-24 INFLUENZA VACCINE [facility] 14:02:07 [code = INFLUENZA VACCINE] Diagnostic Test 2022-06-20 CBC w/ auto diff [facility] 00:00:00 [code = CBC w/ auto Group diff] Diagnostic Test 2022-06-20 BMP, serum or plasma [facility] Pending 00:00:00 [code = BMP, serum or Group plasma] Future Scheduled Test 2022-05-30 65+ PNEUMOCOCCAL [facility] 08:45:43 VACCINE (1 - PCV) [code = 65+ PNEUMOCOCCAL VACCINE (1 - PCV)] Future Scheduled Test 2022-05-30 SHINGLES VACCINES ([address] [place] [address] 08:45:43 of 2) [code = SHINGLES VACCINES (1 of 2)] Future Scheduled Test 2022-05-30 COVID-19 VACCINE ([address] [place] [address] 08:45:43 Booster for Pfizer series) [code = COVID-19 VACCINE (5 - Booster for Pfizer series)] Future Scheduled Test 2022-05-30 INFLUENZA VACCINE [facility] 08:45:43 [code = INFLUENZA VACCINE] Future Scheduled Test 2022-05-30 65+ PNEUMOCOCCAL [facility] 08:45:43 VACCINE (1 - PCV) [code = 65+ PNEUMOCOCCAL VACCINE (1 - PCV)] Future Scheduled Test 2022-05-30 SHINGLES VACCINES (1 [facility] 08:45:43 of 2) [code = SHINGLES VACCINES (1 of 2)] Future Scheduled Test 2022-05-30 COVID-19 VACCINE ([address] [place] [address] 08:45:43 Booster for Pfizer series) [code = COVID-19 VACCINE (5 - Booster for Pfizer series)] Future Scheduled Test 2022-05-30 INFLUENZA VACCINE [facility] 08:45:43 [code = INFLUENZA VACCINE] Future Scheduled Test 2021-07-16 COVID-19 VACCINE (1) [facility] 12:07:49 [code = COVID-19 VACCINE (1)] Future Scheduled Test 2021-07-16 65+ PNEUMOCOCCAL [facility] 12:07:49 VACCINE (1 of 4 - PCV13) [code = 65+ PNEUMOCOCCAL VACCINE (1 of 4 - PCV13)] Future Scheduled Test 2021-07-16 SHINGLES VACCINES [facility] 12:07:49 (#1) [code = SHINGLES VACCINES (#1)] Future Scheduled Test 2021-07-16 INFLUENZA VACCINE [facility] 12:07:49 [code = INFLUENZA VACCINE] Future Scheduled Test 2021-07-16 COVID-19 VACCINE (1) [facility] 12:07:49 [code = COVID-19 VACCINE (1)] Future Scheduled Test 2021-07-16 65+ PNEUMOCOCCAL [facility] 12:07:49 VACCINE (1 of 4 - PCV13) [code = 65+ PNEUMOCOCCAL VACCINE (1 of 4 - PCV13)] Future Scheduled Test 2021-07-16 SHINGLES VACCINES [facility] 12:07:49 (#1) [code = SHINGLES VACCINES (#1)] Future Scheduled Test 2021-07-16 INFLUENZA VACCINE [facility] 12:07:49 [code = INFLUENZA VACCINE] Instructions Sofie koenig Group Encounters Start End Encounter Admission Attending Care Care Encounter Source Date/Time Date/Time Type Type Clinicians Facility Department ID 2022-08-15 Outpatient 3 [id number] [facility] REF [id number] [facility] 08:41:03 [facility]25 [facility] 2022-08-11 Outpatient 3 [id number] [facility] REF [id number] [facility] 10:31:33 [id number] [facility] 2022-07-24 Outpatient 3 MICHELET CYRSL CVA [id number] [facility] 14:11:30 [id number] [facility] 2022-07-18 Outpatient 3 MICHELET CYRSL CVA [id number] [facility] 12:45:14 10533 [facility] 2022-07-17 Outpatient 3 [id number] EN[facility] REF [id number] [facility] 08:23:35 [id number] [facility] 2022-07-16 Outpatient 3 [id number] EN[facility] REF [id number] [facility] 16:31:43 [id number] [facility] 2022-07-16 2022-07-25 Inpatient ER Emerson, [facility] [id number] [place] 11:14:00 13:22:00 Angelo -[id number] [facility] 2022-07-07 2022-07-07 Angelo [facility] [place] - [id number] [place] 00:00:00 00:00:00 Ryan Spencer Medical Medical MD: [address] [place] [address], [place] [address] , Ph. 2022-07-04 2022-07-04 Emergency ER Chet, [facility] [id number] [place] 10:15:00 14:05:00 Manny -[id number] [facility] 2022-06-28 2022-06-28 Outpatient EL Emerson, [facility] [id number] [place] 11:22:00 11:22:00 Angelo -[id number] [facility] 2022-06-24 2022-06-24 Outpatient Zuniga_F MMG MMG [id number] [id number] [place] 00:00:00 00:00:00 110 Medical [facility] 2022-06-24 2022-06-24 Outpatient Zuniga_F MMG MMG [id number] 0230 [place] 00:00:00 00:00:00 123 Medical Group 2022-06-24 2022-06-24 Angelo [facility] [place] - [id number] [place] 00:00:00 00:00:00 Bright Nguyen Medical MD: [address] [place] [address], [place] [address] , Ph. 2022-06-23 2022-06-23 Outpatient Zuniga_F MMG MMG [id number] 0230 [place] 00:00:00 00:00:00 109 [facility] 2022-06-23 2022-06-23 Abi MM [place] - [id number] [place] [facility] 00:00:00 00:00:00 Jessica Dang Medical Medical CAFE ASSOCIATE: [address] [facility] [address], [place] [address] , Ph. 2022-06-21 2022-06-21 [facility] [id number] [place] 12:02:00 18:03:00 Faheem -[id number] [facility] 2022-06-20 2022-06-20 Outpatient TOSHIA VILLANUEVA, [facility] [id number] [place] 10:24:00 10:24:00 ABI -[id number] [facility] 2022-06-20 2022-06-20 Outpatient Marcosiga_F [facility] [id number] 0230 [place] 00:00:00 00:00:00 106 [facility] 2022-06-20 2022-06-20 Abi [facility] [place] - [id number] M [facility] 00:00:00 00:00:00 Jessica Dang Medical Medical CAFE ASSOCIATE: [address] [address], [place] [address] , Ph. 2022-06-05 2022-06-05 Outpatient EL Emerson, [facility] [id number] [place] 16:39:00 16:39:00 Angelo -[id number] [facility] 2022-05-30 2022-05-30 Office Spheeris, 1.2.840.1 [id number] [id number] Methodi 08:15:00 08:39:02 Visit Elva 42107.1.[address] [facility] 3.430.2.7 Hospit a .3.368755 l .8 2022-05-30 2022-05-30 Office Spheeris, 1.2.840.1 [id number] 2100 [id number] Methodi 08:15:00 08:39:02 Visit Elva 39509.1.[address] Shay 3.430.2.7 Hospit a .3.495787 l .8 2022-05-30 2022-05-30 Travel 1.2.840.1 1.2.084.343 3244 [id number] Methodi 00:00:00 00:00:[address] 3.430.2.7 0.2.7.3.698 Ho spita .3.906879 084.8 l .8 2022-05-30 2022-05-30 Travel 1.2.840.1 1.2.628.788 9146 726507 Methodi 00:00:00 00:00:[address] 3.430.2.7 0.2.7.3.698 Ho spita .3.018313 084.8 l .8 2022-04-30 2022-04-30 Outpatient Emerson [facility] [id number] [place] 09:35:00 09:35:00 [facility] -[id number] [facility] 2022-04-24 2022-04-24 Outpatient Emerson_[facility] [id number] [place] 00:00:00 00:00:00 110 [facility] 2022-04-24 2022-04-24 [facility] [place] - [id number] [place] 00:00:00 00:00:00 Ryan Spencer Medical Medical MD: [address] [place] [address] [address], [place] [address] , Ph. 2022-04-21 2022-04-21 Travel 1.2.840.1 1.2.501.590 8043 092607 Methodi 00:00:00 00:00:[address] 3.430.2.7 0.2.7.3.698 Ho spita .3.138702 084.8 l .8 2022-04-21 2022-04-21 Telephone Luis E, 1.2.840.1 [id number] 21 [id number] Methodi 00:00:00 00:00:[address] [facility]7 Hosp dev .3.203665 l .8 2022-04-21 2022-04-21 Travel 1.2.840.1 1.2.261.601 7367 828489 Methodi 00:00:00 00:00:[address] 3.430.2.7 0.2.7.3.698 Ho spita .3.529939 084.8 l .8 2022-04-21 2022-04-21 Telephone Luis E, 1.2.840.1 [id number] 21 [id number] Methodi 00:00:00 00:00:[address] [facility] 3.430.2.7 Hosp dev .3.580321 l .8 2022-04-16 2022-04-16 Outpatient Emerson_F [facility] [id number] [place] 00:00:00 00:00:00 102 Medical Group 2022-04-03 2022-04-03 Outpatient Emerson, [facility] [id number] [place] 12:24:00 12:24:00 [id number] [facility] 2022-03-03 2022-03-03 Office Spheeris, 1.2.840.1 [id number] 2099 [id number] Methodi 09:15:00 09:18:37 Visit Elva 08118.1.[address] Shay 3.430.2.7 Hospit a .3.944690 l .8 2022-03-03 2022-03-03 Office Spheeris, 1.2.840.1 [id number] 2099 242235 Methodi 09:15:00 09:18:37 Visit Elva 16690.1.[address] Shay 3.430.2.7 Hospit a .3.884708 l .8 2022-03-03 2022-03-03 Travel 1.2.840.1 1.2.239.936 8568 190738 Methodi 00:00:00 00:00:[address] 3.430.2.7 0.2.7.3.698 Ho spita .3.867780 084.8 l .8 2022-03-03 2022-03-03 Travel 1.2.840.1 1.2.211.138 4046 216508 Methodi 00:00:00 00:00:[address] 3.430.2.7 0.2.7.3.698 Ho spita .3.109046 084.8 l .8 2022-02-26 2022-02-26 [facility] 1.2.840.1 [id number] 2 [id number] Methodi 15:11:19 23:59:[address] 3.430.2.7 Hospit a .3.793269 l .8 2022-02-26 2022-02-26 [facility] 1.2.840.1 [id number] 2 [id number] Methodi 12:20:00 15:10:[address] 3.430.2.7 Hospit a .3.138607 l .8 2022-02-26 2022-02-26 [facility] 1.2.840.1 [id number] 2 [id number] Methodi 12:20:00 15:10:[address] 3.430.2.7 Hospit a .3.618513 l .8 2022-02-26 2022-02-26 [facility] 1.2.840.1 [id number] 2 [id number] Methodi 09:30:42 12:19:[address] 3.430.2.7 Hospit a .3.263576 l .8 2022-02-26 2022-02-26 Travel 1.2.840.1 1.2.040.829 5320 965427 Methodi 00:00:00 00:00:[address] 3.430.2.7 0.2.7.3.698 Ho spita .3.730951 084.8 l .8 2022-02-26 2022-02-26 [facility] DENISE COWART 1.2.840.1 [id number] 2 [id number] [place] 00:00:00 00:00:00 Encounter 75459.1.1 [address] .3.778466 .8 2022-02-26 2022-02-26 [facility] DENISE COWART 1.2.840.1 [id number] 2 [id number] [place] 00:00:00 00:00:00 Encounter 19288.1.1 [address] .3.818812 .8 2022-02-26 2022-02-26 Travel 1.2.840.1 1.2.076.752 7727 604872 Methodi 00:00:00 00:00:[address] 3.430.2.7 0.2.7.3.698 Ho spita .3.797782 084.8 l .8 2022-02-24 2022-02-24 [facility] Denise Cowart 1.2.840.1 [id number] 21 [id number] Methodi 09:55:00 10:00:[address] 3.430.2.7 Hospit a .3.534800 l .8 2022-02-24 2022-02-24 [facility] Denise Cowart 1.2.840.1 [id number] 21 [id number] Methodi 09:55:00 10:00:[address] 3.430.2.7 Hospit a .3.074338 l .8 2022-02-24 2022-02-24 [facility] Denise Cowart 1.2.840.1 [id number] Methodi 08:30:00 09:36:[address] 3.430.2.7 Hospit a .3.048034 l .8 2022-02-24 2022-02-24 Procedure Denise Cowart 1.2.840.1 [id number] Methodi 08:30:00 09:36:[address] 3.430.2.7 Hospit a .3.852504 l .8 2022-02-24 2022-02-24 Travel 1.2.840.1 1.2.416.175 9244 355580 Methodi 00:00:00 00:00:[address] 3.430.2.7 0.2.7.3.698 Ho spita .3.830498 084.8 l .8 2022-02-24 2022-02-24 Travel 1.2.840.1 1.2.716.929 4669 133134 Methodi 00:00:00 00:00:[address] 3.430.2.7 0.2.7.3.698 Ho spita .3.275880 084.8 l .8 2022-02-21 2022-02-21 Outpatient TOSHIA Dickinson [facility] [id number] [facility] 15:33:00 15:33:00 Oliverio -[id number] [facility] 2022-02-10 2022-02-10 Travel 1.2.840.1 1.2.452.464 2727 132222 Methodi 00:00:00 00:00:[address] 3.430.2.7 0.2.7.3.698 Ho spita .3.807052 084.8 l .8 2022-02-10 2022-02-10 Travel 1.2.840.1 1.2.112.496 0517 431009 Methodi 00:00:00 00:00:[address] 3.430.2.7 0.2.7.3.698 Ho spita .3.378062 084.8 l .8 2022-02-10 2022-02-10 Angelo Sanchezpalmer_F [facility] [place] - 2738-202 20 [place] 00:00:00 00:00:00 Ryan Spencer Medical Medical MD: [address] [place] [address] [address], [place] [address] , Ph. 2022-02-06 2022-02-06 Office Denise Cowart 1.2.840.1 [id number] 21 [id number] Methodi 10:00:00 10:45:[address] 3.430.2.7 Hospit a .3.338283 l .8 2022-02-06 2022-02-06 Office Denise Cowart 1.2.840.1 [id number] 21 [id number] Methodi 10:00:00 10:45:[address] 3.430.2.7 Hospit a .3.862549 l .8 2022-02-06 2022-02-06 Travel 1.2.840.1 1.2.550.575 1267 829963 Methodi 00:00:00 00:00:[address] 3.430.2.7 0.2.7.3.698 Ho spita .3.104851 084.8 l .8 2022-02-06 2022-02-06 Travel 1.2.840.1 1.2.716.874 8397 623623 Methodi 00:00:00 00:00:[address] 3.430.2.7 0.2.7.3.698 Ho spita .3.752315 084.8 l .8 2022-01-22 2022-01-22 Outpatient TOSHIA Benavides, [facility] [id number] [place] 09:36:00 09:36:00 Angelo [id number] [facility]22-[facility]-22 2022-01-22 Angelo Rodríguezlorena_F [facility] [place] - 2738- 20 [place] 00:00:00 00:00:00 Ryan Moore 810 Bright Spencer Medical MD: [address] [address], [place] [address] , Ph. 2022-01-12 2022-01-12 Outpatient TOSHIA Benavides, [facility] [id number] [place] 06:30:00 00:01:00 Angelo -[id number] [facility] 2022-01-01 2022-01-01 Outpatient TOSHIA Benavides, [facility] [id number] [place] 14:32:00 14:32:00 Angelo [id number] [facility] 2022-01-01 2022-01-01 Angelo Johnsona_F [facility] [place] - 2738- [place] 00:00:00 00:00:00 Ryan Moore 720 Bright Spencer MD: [address] [place] [address], [place] [address] , Ph. 2021-12-27 2021-12-27 Outpatient TOSHIA Benavides, [facility] [id number] [place] 09:49:00 09:49:00 Angelo -[id number] [facility] 2021-11-21 2021-11-21 Outpatient TOSHIA Benavides [facility] [id number] [place] 12:58:00 12:58:00 Angelo -[id number] [facility] 2021-10-09 2021-10-09 Transcribe Benavides, 1.2.840.1 [id number] Methodi 00:00:00 00:00:00 Orders Angelo 21605.1.[address] 3.430.2.7 Hospit a .3.871468 l .8 2021-10-09 2021-10-09 Transcribe Benavides, 1.2.840.1 [id number] 191 [id number] Methodi 00:00:00 00:00:00 Orders Angelo 17301.1.[address] 3.430.2.7 Hospit a .3.124734 l .8 2021-10-09 2021-10-09 Angelo Johnsona_F MM [place] - 2738-202 20 [place] 00:00:00 00:00:00 Ryan Moore 427 Bright Spencer Medical MD: [address] [facility] [address], [place] [address] , Ph. 2021-10-07 2021-10-07 Outpatient TOSHIA Benavides, [facility] [id number] 483 [place] 16:47:00 16:47:00 Angelo -[id number] [facility] 2021-08-14 2021-08-14 Outpatient TOSHIA Dickinson, [facility] [id number] [place] 08:13:00 08:13:00 Chloea -[id number] [facility] 2021-06-14 2021-06-14 Outpatient Elizabetha_F MMG [facility] [id number] 0211 [place] 12:35:00 12:35:00 231 Medical Group 2021-06-12 2021-06-12 Angelo Johnsona_F MM [place] - 2738-202 11 [place] 00:00:00 00:00:00 Ryan Moore 229 Bright Spencer Medical MD: [address] [place] [address] [address], [place] [address] , Ph. 2021-06-06 2021-06-06 Outpatient TOSHIA Dickinson [facility] [id number] [place] 07:52:00 07:52:00 Chloea -[id number] [facility] 2021-05-16 2021-05-16 Outpatient TOSHIA Dickinson [facility] [id number] [place] 15:44:00 15:44:00 Chloea -[id number] [facility] 2021-02-13 2021-02-13 Outpatient TOSHIA Adamesyolandavalentin [facility] [id number] [place] 09:24:00 09:24:00 Vinshuna -[id number] [facility] 2021-01-24 2021-01-24 Outpatient Zuniga_F MMG [facility] [id number] 0210 [place] 09:37:00 09:37:00 812 [facility] 2020 2020 Angelo Zuniga_F [facility] [place] - 2738-202 10 [place] 00:00:00 00:00:00 Ryan Moore 629 pippa Benavides Medical Medical MD: [address] [place] [address], [place] [address] , Ph. 2020-08-06 2020-08-06 Outpatient TOSHIA Dickinson, [facility] [id number] [place] 14:27:00 14:27:00 Oliverio -[id number] [facility] 2020-07-26 2020-07-26 Angelo Sanchezmayraiga_F MM [place] - 2738-202 10 [place] 00:00:00 00:00:00 Ryan Moore 211 Bright Spencer Medical MD: [address] [place] [address], [place] [address] , Ph. 2020-05-28 2020-05-28 Outpatient TOSHIA BENAVIDES, [facility] [id number] [place] 10:57:00 10:57:00 ANGELO [id number] [facility] 2020-05-24 2020-05-24 Outpatient Zuniga_F MMG [facility] [id number] 0201 [place] 07:45:00 07:45:00 210 [facility] 2020-05-21 2020-05-21 Outpatient TOSHIA Benavides, [facility] [id number] [place] 09:30:00 09:30:00 Angelo [id number] [facility] 2020-05-21 2020-05-21 Angelo Danieluniga_F [facility] [place] - 2738-202 01 [place] 00:00:00 00:00:00 Ryan Moore 207 da Benavides, Medical Medical MD: [address] [facility] [address], [place] [address] , Ph. 2020-05-02 2020-05-02 Outpatient Zuniga_F MMG [facility] [id number] 0201 [place] 02:37:00 02:37:00 118 da [facility] 2020-04-26 2020-04-26 Angelo Zuniga_F [facility] [place] - 2738-202 01 [place] 00:00:00 00:00:00 Ryan Moore 112 da [facility] Medical MD: 600 [facility] [address], [place] [address] , Ph. 2020-04-17 2020-04-17 Outpatient Zuniga_F MMG [facility] [id number] 0201 [place] 03:20:00 03:20:00 103 [facility] 2020-03-05 2020-03-05 Outpatient COH [facility] PDPFEQP FNW [facility] 00:00:00 00:00:00 [id number] 2020-02-28 2020-02-28 Outpatient A_Byrd [facility] [id number] 200 [place] 02:32:00 02:32:00 915 [facility] 2020-02-06 2020-02-06 Outpatient TOSHIA SHETTY [facility] [id number] [place] 14:10:00 14:10:00 RAYRAY -[id number] [facility] 2020-02-06 2020-02-06 Rayray A_Byrd MM [place] - [id number] [place] 00:00:00 00:00:00 Discovery Olu 824 da CAFE ASSOCIATE: [address] [facility] [address], [facility] [address] , Ph. 2020-01-23 2020-01-23 Outpatient [facility] [id number] [place] 08:15:00 08:15:00 Vinitha -[id number] [facility] 2019-12-12 2019-12-13 Outpatient Garland Gorman [facility] [id number] [place] 10:15:00 00:01:00 -[id number] [facility] 2019-10-18 2019-10-18 Garland Rodriguez A[facility]rd [facility] [place] - 2738- [place] 00:00:00 00:00:00 MD Ayla: [address] [address], [facility] [place] [address] , Ph. 2019-10-10 2019-10-10 Emergency E ALCANTER, MHSE MHSE [id number] MH 14:29:00 17:11:00 WHIT[facility] 2019-09-09 2019-09-09 Outpatient A_Byrd [facility] MMG [id number] [place] 03:34:00 03:34:00 327 [facility] 2019-08-14 2019-08-14 Outpatient A_Byrd [facility]G MMG [id number] [place] 02:26:00 02:26:00 301 [facility] 2019-08-11 2019-08-11 Garland Rodriguez A[facility]rd [facility] [place] - 2738- [place] 00:00:00 00:00:00 MD Ayla: [address] [address], [facility] [place] [address] , Ph. 2019-08-02 2019-08-02 Outpatient A_[facility]rd [facility] MMG [id number] [place] 04:05:00 04:05:00 218 [facility] 2019-07-25 2019-07-25 Outpatient TOSHIA Dickinson [facility] [id number] [place] 14:25:00 14:25:00 Chloea -[id number] [facility] 2019-07-11 2019-07-11 Outpatient A_[facility]rd MMG MMG [id number] [place] 04:47:00 04:47:00 127 [facility] 2019-06-10 2019-06-14 Outpatient Garland Gorman [facility] D000 [id number] [place] 08:55:00 00:01:00 -[id number] [facility] 2019-05-26 2019-05-26 Garland Rodriguez [facility] [place] - [id number] [place] 00:00:00 00:00:00 MD Ayla: [address], [facility] [place] [address] , Ph. 2019-05-13 2019-05-13 Outpatient Garland Gorman [facility] D000 [id number] [place] 15:28:00 15:28:00 -[id number] [facility] 2019-05-04 2019-05-04 Garland Rodriguez [facility] [place] - [id number] [place] 00:00:00 00:00:00 MD Ayla: [address], [facility] [place] [address] , Ph. 2019-04-20 2019-04-20 Outpatient [facility]OSHIA Dickinson [facility] [id number] [place] 08:41:00 08:41:00 [id number] 2019-04-15 2019-04-15 Garland Rodriguez [facility] [place] - [id number] [place] 00:00:00 00:00:00 MD Ayla: [address], [facility] [place] [address] , Ph. 2019-04-13 2019-04-13 Garland Rodriguez [facility] [place] - [id number] [place] 00:00:00 00:00:00 MD Ayla: [address], [facility] [place] [address] , Ph. 2019-04-07 2019-04-07 Outpatient Garland Gorman [facility] D000 [id number] [place] 10:20:00 10:20:00 -[id number] [facility] 2019-04-01 2019-04-01 Outpatient Garland Gorman [facility] D000 [id number] [place] 16:35:00 16:35:00 -[id number] [facility] 2019-01-26 2019-01-26 Outpatient TOSHIA Dickinson [facility] [id number] [place] 09:43:00 09:43:00 Oliverio -[id number] [facility] 2019-01-11 2019-01-11 Outpatient TOSHIA Aguila Alan [facility] D000 [id number] [place] 11:36:00 11:36:00 -[id number] [facility] 2019-01-11 2019-01-11 Garland Rodriguez [facility] [place] - [id number] [place] 00:00:00 00:00:00 MD Ayla: [address] [facility] [place], [place] - [address], [facility] [place] [address] , Ph. 2018-12-22 2019-01-04 [facility] 3 [facility] [id number] [place] 18:06:00 10:00:00 LEONORA [id number] [facility] Mal[facility] 2018-12-06 2018-12-06 Outpatient TOSHIA WilderrdDeonten [facility] D000 [id number] [place] 12:03:00 12:03:00 -[id number] [facility] 2018-12-02 2018-12-02 Outpatient TOSHIA WilderGarland bo [facility] [id number] [place] 14:50:00 14:50:00 -[id number] [facility] 2018-11-07 2018-11-09 Inpatient ER Emerson [facility] [id number] [place] 15:24:00 11:44:00 Angelo -[id number] [facility] 2018-10-21 2018-10-21 Outpatient Garland Gorman [facility] D000 [id number] [place] 13:12:00 13:12:00 -[id number] [facility] 2018-10-11 2018-10-11 Outpatient TOSHIA Gilbert [facility] [id number] [place] 12:05:00 12:05:00 Paola -[id number] [facility] 2018-10-09 2018-10-09 Emergency ER HANS, [facility] [id number] [place] 12:01:00 15:50:00 RICKIE -[id number] [facility] 2018-10-08 2018-10-08 Outpatient Garland Gorman [facility] D000 [id number] [place] 14:56:00 14:56:00 -[id number] [facility] 2018-09-28 2018-09-28 Outpatient TOSHIA Aguila Alan [facility] D000 [id number] [place] 12:13:00 12:13:00 -[id number] [facility] 2018-09-27 2018-09-27 Garland Rodriguez [facility] [place] - [id number] [place] 00:00:00 00:00:00 MD Ayla: [phone] [facility] - [address], [facility] [place] [address] , Ph. 2018-09-15 2018-09-15 Garland Rodriguez [facility] [place] - [id number] [place] 00:00:00 00:00:00 MD Ayla: [address], [facility] [place] [address] , Ph. 2018-08-19 2018-08-19 Outpatient TOSHIA WilderrdDeonten [facility] D000 [id number] [place] 14:42:00 14:42:00 -[id number] [facility] 2018-08-04 2018-08-04 Outpatient TOSHIA Aguila Alan [facility] D000 [id number] [place] 12:10:00 12:10:00 -[id number] [facility] 2018-07-19 2018-07-19 Outpatient TOSHIA Zacariasuriah [facility] [id number] [place] 15:05:00 15:05:00 Oliverio -[id number] [facility] 2018-07-15 2018-07-15 Outpatient TOSHIA Aguila Alan [facility] D000 [id number] [place] 14:01:00 14:01:00 -[id number] [facility] 2018-06-29 2018-06-29 Outpatient TOSHIA Aguila Alan [facility] D000 [id number] [place] 11:47:00 11:47:00 -[id number] [facility] 2018-06-29 2018-06-29 Garland Rodriguez [facility] [place] - [phone] [place] 00:00:00 00:00:00 MD Ayla: [employer] [address] [employer] [place], [place] - [address], [facility] [place] [address] , Ph. 2018-05-27 2018-05-27 Outpatient TOSHIA Aguila Garland [facility] D000 [id number] [place] 16:20:00 16:20:00 -[id number] [facility] 2018-05-07 2018-05-07 Outpatient TOSHIA Aguila Alan [facility] D000 [id number] [place] 12:09:00 12:09:00 -[id number] [facility] 2018-04-13 2018-04-13 Outpatient TOSHIA Dickinson [facility] [id number] [place] 15:50:00 15:50:00 Chloea -[id number] [facility] 2018-04-07 2018-04-07 Outpatient TOSHIA Dickinson [facility] [id number] [place] 14:11:00 14:11:00 Chloea -[id number] [facility] 2018-02-12 2018-02-12 Outpatient TOSHIA Garland Aguila [facility] [id number] [place] 16:17:00 16:17:00 -[id number] [facility] 2018-01-27 2018-01-27 Outpatient TOSHIA Garland Aguila [facility] D000 [id number] [place] 12:45:00 12:45:00 -[id number] [facility] 2017-12-02 2017-12-02 Outpatient TOSHIA Gilbert [facility] [id number] [place] 10:48:00 10:48:00 Paola -[id number] [facility] 2017-11-25 2017-11-25 Outpatient TOSHIA Gilbert [facility] [id number] [place] 12:00:00 12:00:00 Paola -[id number] [facility] 2017-11-03 2017-11-03 Outpatient TOSHIA [place], [facility] [id number] [place] 09:51:00 09:51:00 Jamal [id number] [facility] 2017-11-02 2017-11-02 Outpatient TOSHIA Gilbert, [facility] [id number] [place] 06:51:00 06:51:00 Paola -[id number] [facility] 2017-09-26 2017-09-26 Outpatient EL Neret, [facility] [id number] [place] 22:40:00 22:40:00 Leonora [id number] [facility] 2017-09-18 2017-09-18 Outpatient TOSHIA Gilbert, [facility] [id number] [place] 06:50:00 06:50:00 Paola [id number] [facility] 2017-08-14 2017-08-14 Outpatient TOSHIA Gilbert, [facility] [id number] [place] 10:02:00 10:02:00 Paola -[id number] [facility] 2017-07-23 2017-07-23 Outpatient EL Neret, [facility] [id number] [place] 06:29:00 06:29:00 Leonora [id number] [facility] 2017-07-10 2017-07-10 Outpatient EL Neret, [facility] [id number] [place] 08:33:00 08:33:00 Leonora [id number] [facility] 2017-07-06 2017-07-06 Outpatient EL Neret, [facility] [id number] [place] 10:22:00 10:22:00 Leonora [id number] [facility] 2017-06-22 2017-06-22 Outpatient EL Neret, [facility] [id number] [place] 11:13:00 11:13:00 Leonora [id number] [facility] 2017-06-17 2017-06-17 Outpatient EL Neret, [facility] [id number] [place] 07:07:00 07:07:00 Leonora [id number] [facility] 2017-05-15 2017-05-15 Outpatient EL Neret, [facility] [id number] [place] 21:46:00 21:46:00 Leonora -[id number] [facility] 2017-04-21 2017-04-21 Outpatient EL VERENICE, [facility] [id number] [place] 08:12:00 08:12:00 ALICIA -[id number] [facility] 2017-03-27 2017-03-27 Outpatient EL Neret, [facility] [id number] [place] 15:20:00 15:20:00 Leonora -[id number] [facility] 2017-03-18 2017-03-18 Outpatient EL Neret, [facility] [id number] [place] 07:51:00 07:51:00 Leonora [id number] [facility] 2017-03-17 2017-03-17 Outpatient EL Neret, [facility] [id number] [place] 09:59:00 09:59:00 Leonora [id number] [facility] 2017-03-10 2017-03-10 Outpatient EL Neret, [facility] [id number] [place] 09:55:00 09:55:00 Leonora [id number] [facility] 2017-03-06 2017-03-06 Outpatient EL Neret, [facility] [id number] [place] 07:17:00 07:17:00 Leonora [id number] [facility] 2017-03-04 2017-03-04 Outpatient EL Neret, [facility] [id number] [place] 07:03:00 07:03:00 Leonora [id number] [facility] 2017-03-03 2017-03-03 Outpatient TOSHIA HOLLOWAY, [facility] [id number] [place] 07:43:00 07:43:00 [facility] [id number] [facility] 2017-02-24 2017-02-24 Outpatient EL RAEU, [facility] [id number] [place] 06:48:00 06:48:00 LEX -[id number] [facility] 2017-02-18 2017-02-18 Outpatient TOSHIA Garland Aguila [facility] D000 [id number] [place] 08:55:00 08:55:00 -[id number] [facility] 2017-02-02 2017-02-02 Outpatient EL Neret, [facility] [id number] [place] 15:21:00 15:21:00 Leonora [id number] [facility] 2016-11-06 2016-11-06 Outpatient UR Neret, [facility] [id number] [place] 13:12:00 13:12:00 Leonora -[id number] [facility] 2016-11-04 2016-11-04 Outpatient EL Neret, [facility] [id number] [place] 07:01:00 07:01:00 Leonora [id number] [facility] 2016-08-28 2016-09-08 Inpatient ER Yessica, [facility] [id number] [place] 13:33:00 13:21:00 Carli -[id number] [facility] 2016-08-26 2016-08-26 Emergency ER UGDONAVON, [facility] [id number] [place] 01:46:00 07:30:00 YAEL -[id number] [facility] 2016-08-22 2016-08-22 Outpatient TOSHIA SCHRADER, [facility] [id number] [place] 17:57:00 17:57:00 ANDIE -[id number] [facility] 2016-08-16 2016-08-16 Outpatient Garland Gorman [facility] D000 [id number] [place] 08:23:00 08:23:00 -[id number] [facility] 2016-08-11 2016-08-11 Outpatient Garland Gorman [facility] D000 [id number] [place] 07:52:00 07:52:00 -[id number] [facility] 2016-07-25 2016-07-31 Inpatient ER Yessica, [facility] [id number] [place] 09:29:00 13:04:00 Carli -[id number] [facility] 2016-07-15 2016-07-15 Outpatient TOSHIA Dickinson, [facility] [id number] [place] 16:04:00 16:04:00 Oliverio -[id number] [facility] 2016-07-10 2016-07-10 Outpatient EL Garland Aguila [facility] D000 [id number] [place] 13:56:00 13:56:00 -[id number] [facility] 2016-07-06 2016-07-08 Inpatient ER Chau, [facility] [id number] [place] 20:40:00 14:01:00 Andrea -[id number] [facility] 2016-06-23 2016-06-23 Outpatient TOSHIA Romero, [facility] [id number] [place] 14:56:00 14:56:00 [facility] -[id number] [facility] 2016-05-30 2016-06-04 Inpatient ER Chau, [facility] [id number] [place] 14:03:00 17:54:00 [facility] -[id number] [facility] 2016-01-20 2016-01-24 Inpatient ER ESTHER LEI [facility] [id number] [place] 22:13:00 12:30:00 -[id number] [facility] 2016-01-19 2016-01-19 Emergency ER , [facility] [id number] [place] 15:16:00 19:20:00 WASIM -[id number] [facility] 2016-01-03 2016-01-03 Outpatient TOSHIA SCHRADER, [facility] [id number] [place] 18:23:00 18:23:00 ANDIE -[id number] [facility] 2015-12-23 2015-12-23 Emergency ER Tiki, [facility] [id number] [place] 09:41:00 11:05:00 Jamal -[id number] [facility] 2015-12-06 2015-12-06 Outpatient TOSHIA Arana, [facility] [id number] [place] 07:38:00 07:38:00 Gerson -[id number] [facility] 2015-11-19 2015-11-19 Outpatient TOSHIA Romero, [facility] [id number] [place] 08:36:00 08:36:00 Kane -[id number] [facility] 2015-10-13 2015-10-13 Outpatient STACY MEAD [facility] [id number] [place] 10:14:00 10:14:00 -[id number] [facility] 2015-10-12 2015-10-12 Emergency ER EDWIN BAZZI [facility] [id number] [place] 02:08:00 04:40:00 -[id number] [facility] 2015-10-08 2015-10-08 Outpatient TOSHIA Romero, [facility] [id number] [place] 08:24:00 08:24:00 [facility] -[id number] [facility] 2015-08-24 2015-08-24 Emergency ER HORTENCIA, [facility] [id number] [place] 09:00:00 17:30:00 [facility] -[id number] [facility] 2015-07-04 2015-07-04 Outpatient TOSHIA Romero, [facility] [id number] [place] 08:07:00 08:07:00 [facility] -[id number] [facility] 2015-06-05 2015-06-05 Outpatient TOSHIA HOLLOWAY, [facility] [id number] [place] 06:50:00 06:50:00 [facility] -[id number] [facility] 2015-05-14 2015-05-14 Outpatient TOSHIA HOLLOWAY, [facility] [id number] [place] 14:36:00 14:36:00 [facility][id number] [facility] 2015-05-05 2015-05-05 Emergency ER IMER ELIZONDO [facility] [id number] [place] 08:38:00 08:38:00 -[id number] [facility] 2015-03-26 2015-03-26 Outpatient Garland Gorman [facility] [id number] [id number] [place] 07:57:00 07:57:00 -[id number] [facility] 2015-03-06 2015-03-06 Outpatient TOSHIA Romero, [facility] [id number] [place] 08:14:00 08:14:00 [facility] -[id number] [facility] 2014-10-23 2014-10-23 Outpatient TOSHIA Romero, [facility] [id number] [place] 07:56:00 07:56:00 [facility] -[id number] [facility] 2014-09-04 2014-09-04 Outpatient EL Nick, [facility] [id number] [place] 07:38:00 07:38:00 [facility] -[id number] [facility] 2014-04-13 2014-04-13 Outpatient EL Nick, [facility] [id number] [place] 07:13:00 07:13:00 [facility] -[id number] [facility] 2013-09-07 2013-09-07 Outpatient EL Nick, [facility] [id number] [place] 07:34:00 07:34:00 [facility] -[id number] [facility] 2013-07-06 2013-07-06 Outpatient EL Nick, [facility] [id number] [place] 07:44:00 07:44:00 [facility] -[id number] [facility] 2013-03-28 2013-03-28 Outpatient EL Nick, [facility] [id number] [place] 07:35:00 07:35:00 [facility] -[id number] [facility] 2012-10-14 2012-10-14 Outpatient EL Nick, [facility] [id number] [place] 07:25:00 07:25:00 [facility] -[id number] [facility] 2012-07-26 2012-07-26 Outpatient EL Nick, [facility] [id number] [place] 08:16:00 08:16:00 [facility] -[id number] [facility] 2012-04-08 2012-04-08 Outpatient EL Nick, [facility] [id number] [place] 07:47:00 07:47:00 [facility] -[id number] [facility] 2006-04-20 2006-04-21 Inpatient ER RORIG, [facility] [id number] [place] 06:20:00 20:20:00 [id number] [facility] Results Test Description Test Time Test Comments Results Result Comments Source urinalysis 2022-06-28 12:14:00 Test Item Value Reference Range Interpretation Comme nts color, urine (test code = color, urine) light yellow appearance, urine (test code = appearance, urine) SL cloudy nicki r A urine glucose (test code = urine glucose) negative negative bilirubin, urine (test code = bilirubin, urine) negative negati ve ketone, urine (test code = ketone, urine) negative negative specific gravity,urine (test code = specific 1.010 1.003-1.0 30 gravity,urine) blood urine (test code = blood urine) trace negative pH,urine (test code = pH,urine) 6.500 5-9 protein urine (UA) (test code = protein urine (UA)) 1+ (50 mg/dL) n egative A urobilinogen, urine (test code = urobilinogen, normal 0.2-1.0 urine) nitrate, urine (test code = nitrate, urine) negative negative urine leukocyte esterase (test code = urine 4+ negative A leukocyte esterase) RBC, urine (test code = RBC, urine) 1-5 0-5 WBC, urine (test code = WBC, urine) >50 0-5 A epithelial cell (test code = epithelial cell) 30-49 0-5 bacteria, urine (test code = bacteria, urine) few none det ect casts,urine (test code = casts,urine) 6-10 none detect A urine culture added? (test code = urine culture no. contaminated. added?) yeast, urine (test code = yeast, urine) few none detect [id number] 12:14:00 Test Item Value Reference Range Interpretation Comments color, urine (test code = light yellow color, urine) appearance, urine (test SL cloudy clear A code = appearance, urine) urine glucose (test code = negative negative urine glucose) bilirubin, urine (test code negative negative = bilirubin, urine) ketone, urine (test code = negative negative ketone, urine) specific gravity,urine 1.010 1.003-1.030 (test code = specific gravity,urine) blood urine (test code = trace negative blood urine) pH,urine (test code = 6.500 5-9 pH,urine) protein urine (UA) (test 1+ (50 mg/dL) negative A code = protein urine (UA)) urobilinogen, urine (test normal 0.2-1.0 code = urobilinogen, urine) nitrate, urine (test code = negative negative nitrate, urine) urine leukocyte esterase 4+ negative A (test code = urine leukocyte esterase) RBC, urine (test code = 1-5 0-5 RBC, urine) WBC, urine (test code = >50 0-5 A WBC, urine) epithelial cell (test code 30-49 0-5 = epithelial cell) bacteria, urine (test code few none detect = bacteria, urine) casts,urine (test code = 6-10 none detect A casts,urine) urine culture added? (test no. contaminated. code = urine culture added?) yeast, urine (test code = few none detect yeast, urine) [facility] metabolic [id number] 14:14:00 Test Item Value Reference Range Interpretation Comments glucose (test code = glucose) 175 mg/dL 82-115 H blood urea nitrogen (test code = 39 mg/dL 8-23 H blood urea nitrogen) osmolality calculated,serum (test 291 mOsm/kg 280-300 code = osmolality calculated,serum) creatinine (test code = 1.62 mg/dL 0.50-0.90 H creatinine) glomerular filtration rate (test 30.27 L code = glomerular filtration rate) BUN/creatinine ratio (test code = 24.1 12.0-20.0 H BUN/creatinine ratio) sodium level (test code = sodium 139 mmol/L 135-145 level) potassium level (test code = 4.5 mmol/L 3.5-5.2 potassium level) chloride level (test code = 103 mmol/L 98-108 chloride level) CO2 (test code = CO2) 21 mmol/L 21-32 anion gap (test code = anion gap) 19.5 mEq/L 12.0-20.0 calcium level (test code = 9.3 mg/dL 8.8-10.2 calcium level) [facility] metabolic [id number] 14:14:00 Test Item Value Reference Range Interpretation Comments glucose (test code = glucose) 175 mg/dL 82-115 H blood urea nitrogen (test code = 39 mg/dL 8-23 H blood urea nitrogen) osmolality calculated,serum (test 291 mOsm/kg 280-300 code = osmolality calculated,serum) creatinine (test code = 1.62 mg/dL 0.50-0.90 H creatinine) glomerular filtration rate (test 30.27 L code = glomerular filtration rate) BUN/creatinine ratio (test code = 24.1 12.0-20.0 H BUN/creatinine ratio) sodium level (test code = sodium 139 mmol/L 135-145 level) potassium level (test code = 4.5 mmol/L 3.5-5.2 potassium level) chloride level (test code = 103 mmol/L 98-108 chloride level) CO2 (test code = CO2) 21 mmol/L 21-32 anion gap (test code = anion gap) 19.5 mEq/L 12.0-20.0 calcium level (test code = 9.3 mg/dL 8.8-10.2 calcium level) [facility] metabolic [id number] 14:14:00 Test Item Value Reference Range Interpretation Comments glucose (test code = glucose) 175 mg/dL 82-115 H blood urea nitrogen (test code = 39 mg/dL 8-23 H blood urea nitrogen) osmolality calculated,serum (test 291 mOsm/kg 280-300 code = osmolality calculated,serum) creatinine (test code = 1.62 mg/dL 0.50-0.90 H creatinine) glomerular filtration rate (test 30.27 L code = glomerular filtration rate) BUN/creatinine ratio (test code = 24.1 12.0-20.0 H BUN/creatinine ratio) sodium level (test code = sodium 139 mmol/L 135-145 level) potassium level (test code = 4.5 mmol/L 3.5-5.2 potassium level) chloride level (test code = 103 mmol/L 98-108 chloride level) CO2 (test code = CO2) 21 mmol/L 21-32 anion gap (test code = anion gap) 19.5 mEq/L 12.0-20.0 calcium level (test code = 9.3 mg/dL 8.8-10.2 calcium level) [facility] metabolic [id number] 14:14:00 Test Item Value Reference Range Interpretation Comments glucose (test code = glucose) 175 mg/dL 82-115 H blood urea nitrogen (test code = 39 mg/dL 8-23 H blood urea nitrogen) osmolality calculated,serum (test 291 mOsm/kg 280-300 code = osmolality calculated,serum) creatinine (test code = 1.62 mg/dL 0.50-0.90 H creatinine) glomerular filtration rate (test 30.27 L code = glomerular filtration rate) BUN/creatinine ratio (test code = 24.1 12.0-20.0 H BUN/creatinine ratio) sodium level (test code = sodium 139 mmol/L 135-145 level) potassium level (test code = 4.5 mmol/L 3.5-5.2 potassium level) chloride level (test code = 103 mmol/L 98-108 chloride level) CO2 (test code = CO2) 21 mmol/L 21-32 anion gap (test code = anion gap) 19.5 mEq/L 12.0-20.0 calcium level (test code = 9.3 mg/dL 8.8-10.2 calcium level) [facility] W Auto Differential panel - [id number] 13:53:00 Test Item Value Reference Range Interpretation Comments white blood count (test code = 13.7 K/uL 4.0-11.5 H white blood count) red blood count (test code = red 3.91 M/uL 3.80-5.20 blood count) hemoglobin (test code = 12.4 g/dL 10.5-15.7 hemoglobin) hematocrit (test code = 37.4 % 34.0-50.0 hematocrit) mean corpuscular volume (test code 95.7 fL 86.0-100.0 = mean corpuscular volume) mean corpuscular hemoglobin (test 31.7 pg 26.2-33.4 code = mean corpuscular hemoglobin) mean corpuscular HGB conc (test 33.2 g/dL 30.0-34.0 code = mean corpuscular HGB conc) red cell distribution width (test 14.6 % 12.0-15.5 code = red cell distribution width) platelet count (test code = 280 K/uL 165-450 platelet count) mean platelet volume (test code = 10.3 fL 9.4-12.6 mean platelet volume) neutrophils % (test code = 86.1 % 44.4-80.1 H neutrophils %) Ig% (test code = Ig%) 0.4 % 0.0-0.4 lymphocyte% (test code = 9.3 % 10.0-50.0 L lymphocyte%) mono % (test code = mono %) 3.8 % 3.6-12.0 eos % (test code = eos %) 0.1 % 0.0-5.4 basophil % (test code = basophil 0.3 % 0.1-1.2 %) absolute neutrophil count (test 11.77 K/uL 1.56-6.13 H code = absolute neutrophil count) Ig# (test code = Ig#) 0.06 K/uL 0.00-0.03 H lymph # (test code = lymph #) 1.27 K/uL 1.18-3.74 mono # (test code = mono #) 0.52 K/uL 0.24-0.86 eos # (test code = eos #) 0.02 K/uL 0.04-0.36 L basophil # (test code = basophil 0.04 K/uL 0.01-0.08 #) NRBC% (test code = NRBC%) 0 /100 WBC 0-0.2 NRBC# (test code = NRBC#) 0 K/uL [facility] W Auto Differential panel - [id number] 13:53:00 Test Item Value Reference Range Interpretation Comments white blood count (test code = 13.7 K/uL 4.0-11.5 H white blood count) red blood count (test code = red 3.91 M/uL 3.80-5.20 blood count) hemoglobin (test code = 12.4 g/dL 10.5-15.7 hemoglobin) hematocrit (test code = 37.4 % 34.0-50.0 hematocrit) mean corpuscular volume (test code 95.7 fL 86.0-100.0 = mean corpuscular volume) mean corpuscular hemoglobin (test 31.7 pg 26.2-33.4 code = mean corpuscular hemoglobin) mean corpuscular HGB conc (test 33.2 g/dL 30.0-34.0 code = mean corpuscular HGB conc) red cell distribution width (test 14.6 % 12.0-15.5 code = red cell distribution width) platelet count (test code = 280 K/uL 165-450 platelet count) mean platelet volume (test code = 10.3 fL 9.4-12.6 mean platelet volume) neutrophils % (test code = 86.1 % 44.4-80.1 H neutrophils %) Ig% (test code = Ig%) 0.4 % 0.0-0.4 lymphocyte% (test code = 9.3 % 10.0-50.0 L lymphocyte%) mono % (test code = mono %) 3.8 % 3.6-12.0 eos % (test code = eos %) 0.1 % 0.0-5.4 basophil % (test code = basophil 0.3 % 0.1-1.2 %) absolute neutrophil count (test 11.77 K/uL 1.56-6.13 H code = absolute neutrophil count) Ig# (test code = Ig#) 0.06 K/uL 0.00-0.03 H lymph # (test code = lymph #) 1.27 K/uL 1.18-3.74 mono # (test code = mono #) 0.52 K/uL 0.24-0.86 eos # (test code = eos #) 0.02 K/uL 0.04-0.36 L basophil # (test code = basophil 0.04 K/uL 0.01-0.08 #) NRBC% (test code = NRBC%) 0 /100 WBC 0-0.2 NRBC# (test code = NRBC#) 0 K/uL [facility] W Auto Differential panel - [id number] 13:53:00 Test Item Value Reference Range Interpretation Comments white blood count (test code = 13.7 K/uL 4.0-11.5 H white blood count) red blood count (test code = red 3.91 M/uL 3.80-5.20 blood count) hemoglobin (test code = 12.4 g/dL 10.5-15.7 hemoglobin) hematocrit (test code = 37.4 % 34.0-50.0 hematocrit) mean corpuscular volume (test code 95.7 fL 86.0-100.0 = mean corpuscular volume) mean corpuscular hemoglobin (test 31.7 pg 26.2-33.4 code = mean corpuscular hemoglobin) mean corpuscular HGB conc (test 33.2 g/dL 30.0-34.0 code = mean corpuscular HGB conc) red cell distribution width (test 14.6 % 12.0-15.5 code = red cell distribution width) platelet count (test code = 280 K/uL 165-450 platelet count) mean platelet volume (test code = 10.3 fL 9.4-12.6 mean platelet volume) neutrophils % (test code = 86.1 % 44.4-80.1 H neutrophils %) Ig% (test code = Ig%) 0.4 % 0.0-0.4 lymphocyte% (test code = 9.3 % 10.0-50.0 L lymphocyte%) mono % (test code = mono %) 3.8 % 3.6-12.0 eos % (test code = eos %) 0.1 % 0.0-5.4 basophil % (test code = basophil 0.3 % 0.1-1.2 %) absolute neutrophil count (test 11.77 K/uL 1.56-6.13 H code = absolute neutrophil count) Ig# (test code = Ig#) 0.06 K/uL 0.00-0.03 H lymph # (test code = lymph #) 1.27 K/uL 1.18-3.74 mono # (test code = mono #) 0.52 K/uL 0.24-0.86 eos # (test code = eos #) 0.02 K/uL 0.04-0.36 L basophil # (test code = basophil 0.04 K/uL 0.01-0.08 #) NRBC% (test code = NRBC%) 0 /100 WBC 0-0.2 NRBC# (test code = NRBC#) 0 K/uL [facility] W Auto Differential panel - [id number] 13:53:00 Test Item Value Reference Range Interpretation Comments white blood count (test code = 13.7 K/uL 4.0-11.5 H white blood count) red blood count (test code = red 3.91 M/uL 3.80-5.20 blood count) hemoglobin (test code = 12.4 g/dL 10.5-15.7 hemoglobin) hematocrit (test code = 37.4 % 34.0-50.0 hematocrit) mean corpuscular volume (test code 95.7 fL 86.0-100.0 = mean corpuscular volume) mean corpuscular hemoglobin (test 31.7 pg 26.2-33.4 code = mean corpuscular hemoglobin) mean corpuscular HGB conc (test 33.2 g/dL 30.0-34.0 code = mean corpuscular HGB conc) red cell distribution width (test 14.6 % 12.0-15.5 code = red cell distribution width) platelet count (test code = 280 K/uL 165-450 platelet count) mean platelet volume (test code = 10.3 fL 9.4-12.6 mean platelet volume) neutrophils % (test code = 86.1 % 44.4-80.1 H neutrophils %) Ig% (test code = Ig%) 0.4 % 0.0-0.4 lymphocyte% (test code = 9.3 % 10.0-50.0 L lymphocyte%) mono % (test code = mono %) 3.8 % 3.6-12.0 eos % (test code = eos %) 0.1 % 0.0-5.4 basophil % (test code = basophil 0.3 % 0.1-1.2 %) absolute neutrophil count (test 11.77 K/uL 1.56-6.13 H code = absolute neutrophil count) Ig# (test code = Ig#) 0.06 K/uL 0.00-0.03 H lymph # (test code = lymph #) 1.27 K/uL 1.18-3.74 mono # (test code = mono #) 0.52 K/uL 0.24-0.86 eos # (test code = eos #) 0.02 K/uL 0.04-0.36 L basophil # (test code = basophil 0.04 K/uL 0.01-0.08 #) NRBC% (test code = NRBC%) 0 /100 WBC 0-0.2 NRBC# (test code = NRBC#) 0 K/u[facility] [place] [facility],urine pres id [id number] 08:48:00 Culture,urineMat[place] [facility] CenterWtazycxqn-[id number] 08:48:00 Test Item Value Reference Range Interpretation Comments gentamicin (test code = gentamicin) <=2 ampicillin (test code = ampicillin) >16 trimethoprim/sulfamethoxazole (test <=0.5/9.5 code = trimethoprim/sulfamethoxazole) tetracycline (test code = <=2 tetracycline) amoxacillin/clavulanate (test code 8/4 = amoxacillin/clavulanate) tobramycin (test code = tobramycin) <=2 nitrofurantoin (test code = >64 nitrofurantoin) cefoxitin (test code = cefoxitin) <=4 levofloxacin (test code = >4 levofloxacin) ceftazidime (test code = <=2 ceftazidime) ceftriaxone (test code = <=1 ceftriaxone) ciprofloxacin (test code = >2 ciprofloxacin) ampicillin/sulbactam (test code = 16/8 ampicillin/sulbactam) ceftazidime-avibactam (test code = <=0.25/4 ceftazidime-avibactam) ertapenem (test code = ertapenem) <=0.25 aztreonam (test code = aztreonam) <=2 cefepime (test code = cefepime) <=1 cefuroxime (test code = cefuroxime) <=4 meropenem (test code = meropenem) <=0.5 amikacin (test code = amikacin) <=8 pip/tazo (test code = pip/tazo) 4/4 ceftaroline (test code = <=0.25 ceftaroline) [facility] pres id [id number] 08:48:00 Culture,urineMataField [facility] HospitalXjqpjcqyv-[id number] 08:48:00 Test Item Value Reference Range Interpretation Comments gentamicin (test code = gentamicin) <=2 ampicillin (test code = ampicillin) >16 trimethoprim/sulfamethoxazole (test <=0.5/9.5 code = trimethoprim/sulfamethoxazole) tetracycline (test code = <=2 tetracycline) amoxacillin/clavulanate (test code 8/4 = amoxacillin/clavulanate) tobramycin (test code = tobramycin) <=2 nitrofurantoin (test code = >64 nitrofurantoin) cefoxitin (test code = cefoxitin) <=4 levofloxacin (test code = >4 levofloxacin) ceftazidime (test code = <=2 ceftazidime) ceftriaxone (test code = <=1 ceftriaxone) ciprofloxacin (test code = >2 ciprofloxacin) ampicillin/sulbactam (test code = 16/8 ampicillin/sulbactam) ceftazidime-avibactam (test code = <=0.25/4 ceftazidime-avibactam) ertapenem (test code = ertapenem) <=0.25 aztreonam (test code = aztreonam) <=2 cefepime (test code = cefepime) <=1 cefuroxime (test code = cefuroxime) <=4 meropenem (test code = meropenem) <=0.5 amikacin (test code = amikacin) <=8 pip/tazo (test code = pip/tazo) 4/4 ceftaroline (test code = <=0.25 ceftaroline) [facility] pres [facility] [id number] 08:48:00 Culture,urineMataField Memorial Community HospitalGnuevigeb-[id number] 08:48:00 Test Item Value Reference Range Interpretation Comments gentamicin (test code = gentamicin) <=2 ampicillin (test code = ampicillin) >16 trimethoprim/sulfamethoxazole (test <=0.5/9.5 code = trimethoprim/sulfamethoxazole) tetracycline (test code = <=2 tetracycline) amoxacillin/clavulanate (test code 8/4 = amoxacillin/clavulanate) tobramycin (test code = tobramycin) <=2 nitrofurantoin (test code = >64 nitrofurantoin) cefoxitin (test code = cefoxitin) <=4 levofloxacin (test code = >4 levofloxacin) ceftazidime (test code = <=2 ceftazidime) ceftriaxone (test code = <=1 ceftriaxone) ciprofloxacin (test code = >2 ciprofloxacin) ampicillin/sulbactam (test code = 16/8 ampicillin/sulbactam) ceftazidime-avibactam (test code = <=0.25/4 ceftazidime-avibactam) ertapenem (test code = ertapenem) <=0.25 aztreonam (test code = aztreonam) <=2 cefepime (test code = cefepime) <=1 cefuroxime (test code = cefuroxime) <=4 meropenem (test code = meropenem) <=0.5 amikacin (test code = amikacin) <=8 pip/tazo (test code = pip/tazo) 4/4 ceftaroline (test code = <=0.25 ceftaroline) [facility] [id number] 09:21:00 Test Item Value Reference Range Interpretation Comments culture,urine (test >100,000 col/cc gram neg code = rods. id and sensitivity culture,urine) to follow. [facility] Hospitalcu[facility] pres id [id number] 09:21:00 Test Item Value Reference Range Interpretation Comments culture,urine (test >100,000 col/cc gram neg code = rods. id and sensitivity culture,urine) to follow. [facility] pres id [id number] 09:21:00 Test Item Value Reference Range Interpretation Comments culture,urine (test >100,000 col/cc gram neg code = rods. id and sensitivity culture,urine) to follow. [facility] pres id [id number] 17:36:00 Test Item Value Reference Range Interpretation Comments culture,urine (test specimen has been code = culture,urine) received in lab and IS in progress. [facility] pres id [id number] 17:36:00 Test Item Value Reference Range Interpretation Comments culture,urine (test specimen has been code = culture,urine) received in lab and IS in progress. [facility] pres id [id number] 17:36:00 Test Item Value Reference Range Interpretation Comments culture,urine (test specimen has been code = culture,urine) received in lab and IS in progress. [facility] [id number] 17:00:00 Test Item Value Reference Range Interpretation Comments color, urine (test code = color, yellow urine) appearance, urine (test code = SL cloudy clear appearance, urine) urine glucose (test code = urine negative negative glucose) bilirubin, urine (test code = negative negative bilirubin, urine) ketone, urine (test code = negative negative ketone, urine) specific gravity,urine (test code 1.010 1.003-1.030 = specific gravity,urine) blood urine (test code = blood large negative A urine) pH,urine (test code = pH,urine) 6.000 5-9 protein urine (UA) (test code = trace negative A protein urine (UA)) urobilinogen, urine (test code = 0.2 E.U./dL 0.2-1.0 urobilinogen, urine) nitrate, urine (test code = positive negative nitrate, urine) urine leukocyte esterase (test 3+ large negative A code = urine leukocyte esterase) urine culture added? (test code = yes urine culture added?) [facility] [id number] 17:00:00 Test Item Value Reference Range Interpretation Comments color, urine (test code = color, yellow urine) appearance, urine (test code = SL cloudy clear appearance, urine) urine glucose (test code = urine negative negative glucose) bilirubin, urine (test code = negative negative bilirubin, urine) ketone, urine (test code = negative negative ketone, urine) specific gravity,urine (test code 1.010 1.003-1.030 = specific gravity,urine) blood urine (test code = blood large negative A urine) pH,urine (test code = pH,urine) 6.000 5-9 protein urine (UA) (test code = trace negative A protein urine (UA)) urobilinogen, urine (test code = 0.2 E.U./dL 0.2-1.0 urobilinogen, urine) nitrate, urine (test code = positive negative nitrate, urine) urine leukocyte esterase (test 3+ large negative A code = urine leukocyte esterase) RBC, urine (test code = RBC, 20-29 0-5 A urine) WBC, urine (test code = WBC, >50 0-5 A urine) epithelial cell (test code = 6-10 0-5 epithelial cell) bacteria, urine (test code = large (3+) none detect A bacteria, urine) urine culture added? (test code = yes urine culture added?) [facility]00 Test Item Value Reference Range Interpretation Comments color, urine (test code = color, yellow urine) appearance, urine (test code = SL cloudy clear appearance, urine) urine glucose (test code = urine negative negative glucose) bilirubin, urine (test code = negative negative bilirubin, urine) ketone, urine (test code = negative negative ketone, urine) specific gravity,urine (test code 1.010 1.003-1.030 = specific gravity,urine) blood urine (test code = blood large negative A urine) pH,urine (test code = pH,urine) 6.000 5-9 protein urine (UA) (test code = trace negative A protein urine (UA)) urobilinogen, urine (test code = 0.2 E.U./dL 0.2-1.0 urobilinogen, urine) nitrate, urine (test code = positive negative nitrate, urine) urine leukocyte esterase (test 3+ large negative A code = urine leukocyte esterase) urine culture added? (test code = yes urine culture added?) [facility] [id number] 17:00:00 Test Item Value Reference Range Interpretation Comments color, urine (test code = color, yellow urine) appearance, urine (test code = SL cloudy clear appearance, urine) urine glucose (test code = urine negative negative glucose) bilirubin, urine (test code = negative negative bilirubin, urine) ketone, urine (test code = negative negative ketone, urine) specific gravity,urine (test code 1.010 1.003-1.030 = specific gravity,urine) blood urine (test code = blood large negative A urine) pH,urine (test code = pH,urine) 6.000 5-9 protein urine (UA) (test code = trace negative A protein urine (UA)) urobilinogen, urine (test code = 0.2 E.U./dL 0.2-1.0 urobilinogen, urine) nitrate, urine (test code = positive negative nitrate, urine) urine leukocyte esterase (test 3+ large negative A code = urine leukocyte esterase) RBC, urine (test code = RBC, 20-29 0-5 A urine) WBC, urine (test code = WBC, >50 0-5 A urine) epithelial cell (test code = 6-10 0-5 epithelial cell) bacteria, urine (test code = large (3+) none detect A bacteria, urine) urine culture added? (test code = yes urine culture added?) [facility] [id number] 17:00:00 Test Item Value Reference Range Interpretation Comments color, urine (test code = color, yellow urine) appearance, urine (test code = SL cloudy clear appearance, urine) urine glucose (test code = urine negative negative glucose) bilirubin, urine (test code = negative negative bilirubin, urine) ketone, urine (test code = negative negative ketone, urine) specific gravity,urine (test code 1.010 1.003-1.030 = specific gravity,urine) blood urine (test code = blood large negative A urine) pH,urine (test code = pH,urine) 6.000 5-9 protein urine (UA) (test code = trace negative A protein urine (UA)) urobilinogen, urine (test code = 0.2 E.U./dL 0.2-1.0 urobilinogen, urine) nitrate, urine (test code = positive negative nitrate, urine) urine leukocyte esterase (test 3+ large negative A code = urine leukocyte esterase) urine culture added? (test code = yes urine culture added?) [facility] [id number] 17:00:00 Test Item Value Reference Range Interpretation Comments color, urine (test code = color, yellow urine) appearance, urine (test code = SL cloudy clear appearance, urine) urine glucose (test code = urine negative negative glucose) bilirubin, urine (test code = negative negative bilirubin, urine) ketone, urine (test code = negative negative ketone, urine) specific gravity,urine (test code 1.010 1.003-1.030 = specific gravity,urine) blood urine (test code = blood large negative A urine) pH,urine (test code = pH,urine) 6.000 5-9 protein urine (UA) (test code = trace negative A protein urine (UA)) urobilinogen, urine (test code = 0.2 E.U./dL 0.2-1.0 urobilinogen, urine) nitrate, urine (test code = positive negative nitrate, urine) urine leukocyte esterase (test 3+ large negative A code = urine leukocyte esterase) RBC, urine (test code = RBC, 20-29 0-5 A urine) WBC, urine (test code = WBC, >50 0-5 A urine) epithelial cell (test code = 6-10 0-5 epithelial cell) bacteria, urine (test code = large (3+) none detect A bacteria, urine) urine culture added? (test code = yes urine culture added?) [facility],urine pres id [id number] 11:56:00 Culture,urinePer[facility] Hospitalnmic-[id number] 11:56:00 Test Item Value Reference Range Interpretation Comments gentamicin (test code = gentamicin) <=2 ampicillin (test code = ampicillin) >16 trimethoprim/sulfamethoxazole (test <=0.5/9.5 code = trimethoprim/sulfamethoxazole) tetracycline (test code = <=2 tetracycline) amoxacillin/clavulanate (test code 8/4 = amoxacillin/clavulanate) tobramycin (test code = tobramycin) <=2 nitrofurantoin (test code = <=16 nitrofurantoin) cefoxitin (test code = cefoxitin) <=4 levofloxacin (test code = >4 levofloxacin) ceftazidime (test code = <=2 ceftazidime) ceftriaxone (test code = <=1 ceftriaxone) ciprofloxacin (test code = >2 ciprofloxacin) ampicillin/sulbactam (test code = 16/8 ampicillin/sulbactam) ceftazidime-avibactam (test code = <=0.25/4 ceftazidime-avibactam) ertapenem (test code = ertapenem) <=0.25 aztreonam (test code = aztreonam) <=2 cefepime (test code = cefepime) <=1 cefuroxime (test code = cefuroxime) <=4 meropenem (test code = meropenem) <=0.5 amikacin (test code = amikacin) <=8 pip/tazo (test code = pip/tazo) <=2/4 ceftaroline (test code = <=0.25 ceftaroline) [facility] pres [facility] [id number] 08:17:00 [facility],urineMaCho[facility] Centerculture,urine pres id [id number] 16:28:00 Test Item Value Reference Range Interpretation Comments culture,urine (test specimen has been code = culture,urine) received in lab and IS in progress. [facility] [id number] 16:18:00 Test Item Value Reference Range Interpretation Comments color, urine (test code = light yellow color, urine) appearance, urine (test code = SL cloudy clear A appearance, urine) urine glucose (test code = negative negative urine glucose) bilirubin, urine (test code = negative negative bilirubin, urine) ketone, urine (test code = negative negative ketone, urine) specific gravity,urine (test 1.009 1.003-1.030 code = specific gravity,urine) blood urine (test code = blood trace negative urine) pH,urine (test code = pH,urine) 7.000 5-9 protein urine (UA) (test code = 1+ (30 mg/dL) negative A protein urine (UA)) urobilinogen, urine (test code normal 0.2-1.0 = urobilinogen, urine) nitrate, urine (test code = negative negative nitrate, urine) urine leukocyte esterase (test 4+ negative A code = urine leukocyte esterase) RBC, urine (test code = RBC, 1-5 0-5 urine) WBC, urine (test code = WBC, >50 0-5 A urine) epithelial cell (test code = 1-5 0-5 epithelial cell) bacteria, urine (test code = tntc (4+) none detect A bacteria, urine) casts,urine (test code = 2-5 none detect casts,urine) urine culture added? (test code yes = urine culture added?) [facility] 16:18:00 Test Item Value Reference Range Interpretation Comments color, urine (test code = light yellow color, urine) appearance, urine (test code = SL cloudy clear A appearance, urine) urine glucose (test code = negative negative urine glucose) bilirubin, urine (test code = negative negative bilirubin, urine) ketone, urine (test code = negative negative ketone, urine) specific gravity,urine (test 1.009 1.003-1.030 code = specific gravity,urine) blood urine (test code = blood trace negative urine) pH,urine (test code = pH,urine) 7.000 5-9 protein urine (UA) (test code = 1+ (30 mg/dL) negative A protein urine (UA)) urobilinogen, urine (test code normal 0.2-1.0 = urobilinogen, urine) nitrate, urine (test code = negative negative nitrate, urine) urine leukocyte esterase (test 4+ negative A code = urine leukocyte esterase) RBC, urine (test code = RBC, 1-5 0-5 urine) WBC, urine (test code = WBC, >50 0-5 A urine) epithelial cell (test code = 1-5 0-5 epithelial cell) bacteria, urine (test code = tntc (4+) none detect A bacteria, urine) casts,urine (test code = 2-5 none detect casts,urine) urine culture added? (test code yes = urine culture added?) [facility] HospitalMiscellaneous referral [id number] 18:00:00 Test Item Value Reference Interpretation Comments Range Misc test Paraneoplastic, name (test Autoantibody code = Evaluation 2566) Misc test SEE COMMENT Report Status: FINAL result (test code = 1730) Paraneoplastic Autoantibody Eval, Serum =====Interpreti ve Comments A negative basic paraneoplastic evaluation resu lt does not rule out all cl inically relevant antibo dies. If indicated, a comprehensivene urological phenotype-speci fic autoimmune/para neoplastic evaluation (e.g . encephalopathy, movement disorders, myel opathy, or axonalneuropath y) should be considered [email or web address] These eval uations include screening cell- based assays optimized for d etection of recently discov ered antibodies. ............... ............... ............... ............... Amphiphysin Ab Negative titer Reference Value : <1:240 ............... ............... ............... ............... AGNA-1 Negative titer Reference Value : <1:240 ............... ............... ............... ............... LIDIA-1 Negativ e titer Reference Value : <1:240 ............... ............... ............... ............... Reflex Added No ne. ............... ............... ............... ............... LIDIA-2 Negative titer Reference Value : <1:240 ............... ............... ............... ............... LIDIA-3 Negative titer Reference Value : <1:240 ............... ............... ............... ............... CRMP-5-IgG Nega tive titer Reference Value : <1:240 ............... ............... ............... ............... Neuronal (V-G) K+ Channel Ab, S 0.02 nmol/L Reference Value: <=0.02 ............... ............... ............... ............... P/Q-Type Calciu m Channel Ab 0.01 nmol/L Re ference Value: <=0.02 ............... ............... ............... ............... BELL CAPTAIN-1 Negative titer Reference Value : <1:240 ............... ............... ............... ............... BELL CAPTAIN-2 Negative titer Reference Value : <1:240 ............... ............... ............... ............... BELL CAPTAIN-Tr Negative titer Reference Value : <1:240 ............... ............... ............... ............... CASPR2-IgG CBAN egative Reference Value : Negative ............... ............... ............... ............... LGI1-IgG CBANeg ative Reference Value: Negative Laboratory Note s:This test was developed and i ts performancechar acteristics determined by Linda Mayer in a mannerconsisten t with CLIA requirements. T his test has not beencleared or approved by the U.S. Food a nd DrugAdministrat ion. ==== Performing [address] [address] [facility] referral [id number] 18:00:00 Test Item Value Reference Interpretation Comments Range Misc test Paraneoplastic, name (test Autoantibody code = Evaluation 2566) Mis test SEE COMMENT Report Status: FINAL result (test code = 1730) Paraneoplastic Autoantibody Eval, Serum =====Interpreti ve Comments A negative basic paraneoplastic evaluation resu lt does not rule out all cl inically relevant antibo dies. If indicated, a comprehensivene urological phenotype-speci fic autoimmune/para neoplastic evaluation (e.g . encephalopathy, movement disorders, myel opathy, or axonalneuropath y) should be considered [email or web address] These eval uations include screening cell- based assays optimized for d etection of recently discov ered antibodies. ............... ............... ............... ............... Amphiphysin Ab Negative titer Reference Value : <1:240 ............... ............... ............... ............... AGNA-1 Negative titer Reference Value : <1:240 ............... ............... ............... ............... LIDIA-1 Negative titer Reference Value : <1:240 ............... ............... ............... ............... Reflex Added No ne. ............... ............... ............... ............... LIDIA-2 Negativ e titer Reference Value : <1:240 ............... ............... ............... ............... LIDIA-3 Negativ e titer Reference Value : <1:240 ............... ............... ............... ............... CRMP-5-IgG Neg ative titer Reference Value : <1:240 ............... ............... ............... ............... Neuronal (V-G) K+ Channel Ab, S 0.02 nmol/L Reference Value: <=0.02 ............... ............... ............... ............... P/Q-Type Calciu m Channel Ab 0.01 nmol/L Ref erence Value: <=0.02 ............... ............... ............... ............... BELL CAPTAIN-1 Negative titer Reference Value : <1:240 ............... ............... ............... ............... BELL CAPTAIN-2 Negative titer Reference Value : <1:240 ............... ............... ............... ............... BELL CAPTAIN-Tr Negativ e titer Reference Value : <1:240 ............... ............... ............... ............... CASPR2-IgG CBAN egative Reference Value : Negative ............... ............... ............... ............... LGI1-IgG CBANeg ative Reference Value: Negative Laboratory Note s:This test was developed and i ts performancechar acteristics determined by [facility] in a mannerconsisten t with CLIA requirements. T his test has not beencleared or approved by the U.S. Food a nd DrugAdministrat ion. ==== Performing [address] [address] [facility] Centerneous referral [id number] 18:00:00 Test Item Value Reference Interpretation Comments Range Misc test Paraneoplastic, name (test Autoantibody code = Evaluation 2566) Misc test SEE COMMENT Report Status: FINAL result (test code = 1730) Paraneoplastic Autoantibody Eval, Serum =====Interpreti ve Comments A negative basic paraneoplastic evaluation resu lt does not rule out all cl inically relevant antibo dies. If indicated, a comprehensivene urological phenotype-speci fic autoimmune/para neoplastic evaluation (e.g . encephalopathy, movement disorders, myel opathy, or axonalneuropath y) should be considered [email or web address] These eval uations include screening cell- based assays optimized for d etection of recently discov ered antibodies. ............... ............... ............... ............... Amphiphysin Ab Negative titer Reference Value : <1:240 ............... ............... ............... ............... AGNA-1 Negative titer Reference Value : <1:240 ............... ............... ............... ............... LIDIA-1 Negative titer Reference Value : <1:240 ............... ............... ............... ............... Reflex Added No ne. ............... ............... ............... ............... LIDIA-2 Negative titer Reference Value : <1:240 ............... ............... ............... ............... LIDIA-3 Negative titer Reference Value : <1:240 ............... ............... ............... ............... CRMP-5-IgG Nega tive titer Reference Value : <1:240 ............... ............... ............... ............... Neuronal (V-G) K+ Channel Ab, S 0.02 nmol/L R eference Value: <=0.02 ............... ............... ............... ............... P/Q-Type Calciu m Channel Ab 0.01 nmol/L Ref erence Value: <=0.02 ............... ............... ............... ............... BELL CAPTAIN-1 Negative titer Reference Value : <1:240 ............... ............... ............... ............... BELL CAPTAIN-2 Negative titer Reference Value : <1:240 ............... ............... ............... ............... BELL CAPTAIN-Tr Negativ e titer Reference Value : <1:240 ............... ............... ............... ............... CASPR2-IgG CBAN egative Reference Value : Negative ............... ............... ............... ............... LGI1-IgG CBANeg ative Reference Value: Negative Laboratory Note s:This test was developed and i ts performancechar acteristics determined by [facility] in a mannerconsisten t with CLIA requirements. T his test has not beencleared or approved by the U.S. Food a nd DrugAdministrat ion. ==== Performing [address], [place] [address] [facility] [id number] 18:00:00 Test Item Value Reference Interpretation Comments Range Misc test Paraneoplastic, name (test Autoantibody code = Evaluation 2566) Misc test SEE COMMENT Report Status: FINAL result (test code = 5085) Paraneoplastic Autoantibody Eval, Serum =====Interpreti ve Comments A negative basic paraneoplastic evaluation resu lt does not rule out all cl inically relevant antibo dies. If indicated, a comprehensivene urological phenotype-speci fic autoimmune/para neoplastic evaluation (e.g . encephalopathy, movement disorders, myel opathy, or axonalneuropath y) should be considered [email or web address] [email or web address]-[email or web address]/. These eval uations include screening cell- based assays optimized for d etection of recently discov ered antibodies. ............... ............... ............... ............... Amphiphysin Ab Negative titer Reference Value : <1:240 ............... ............... ............... ............... AGNA-1 Negative titer Reference Value : <1:240 ............... ............... ............... ............... LIDIA-1 Negative titer Reference Value : <1:240 ............... ............... ............... ............... Reflex Added No ne. ............... ............... ............... ............... LIDIA-2 Negative titer Reference Value : <1:240 ............... ............... ............... ............... LIDIA-3 Negative titer Reference Value : <1:240 ............... ............... ............... ............... CRMP-5-IgG Nega tive titer Reference Value : <1:240 ............... ............... ............... ............... Neuronal (V-G) K+ Channel Ab, S 0.02 nmol/L R eference Value: <=0.02 ............... ............... ............... ............... P/Q-Type Calciu m Channel Ab 0.01 nmol/L Ref erence Value: <=0.02 ............... ............... ............... ............... BELL CAPTAIN-1 Negative titer Reference Value: <1:240 ............... ............... ............... ............... BELL CAPTAIN-2 Negative titer Reference Value: <1:240 ............... ............... ............... ............... BELL CAPTAIN-Tr Negative titer Reference Value : <1:240 ............... ............... ............... ............... CASPR2-IgG CBAN egative Reference Value : Negative ............... ............... ............... ............... LGI1-IgG CBANeg ative Reference Value: Negative Laboratory Note s:This test was developed and i ts performancechar acteristics determined by [facility] in a mannerconsisten t with CLIA requirements. T his test has not beencleared or approved by the U.S. Food a nd DrugAdministrat ion. ==== Performing [address], [place] [address] [facility] [id number] 18:00:00 Test Item Value Reference Interpretation Comments Range Misc test Paraneoplastic, name (test Autoantibody code = Evaluation 2566) Misc test SEE COMMENT Report Status: FINAL result (test code = 1730) Paraneoplastic Autoantibody Eval, Serum =====Interpreti ve Comments A negative basic paraneoplastic evaluation resu lt does not rule out all cl inically relevant antibo dies. If indicated, a comprehensivene urological phenotype-speci fic autoimmune/para neoplastic evaluation (e.g . encephalopathy, movement disorders, myel opathy, or axonalneuropath y) should be considered [email or web address]-evoluti [email or web address]/. These eval uations include screening cell- based assays optimized for d etection of recently discov ered antibodies. ............... ............... ............... ............... Amphiphysin Ab Negative titer Reference Value : <1:240 ............... ............... ............... ............... AGNA-1 Negativ e titer Reference Value : <1:240 ............... ............... ............... ............... LIDIA-1 Negativ e titer Reference Value : <1:240 ............... ............... ............... ............... Reflex Added N one. ............... ............... ............... ............... LIDIA-2 Negative titer Reference Value : <1:240 ............... ............... ............... ............... LIDIA-3 Negative titer Reference Value : <1:240 ............... ............... ............... ............... CRMP-5-IgG Nega tive titer Reference Value : <1:240 ............... ............... ............... ............... Neuronal (V-G) K+ Channel Ab, S 0.02 nmol/L R eference Value: <=0.02 ............... ............... ............... ............... P/Q-Type Calciu m Channel Ab 0.01 nmol/L Ref erence Value: <=0.02 ............... ............... ............... ............... BELL CAPTAIN-1 Negative titer Reference Value: <1:240 ............... ............... ............... ............... BELL CAPTAIN-2 Negative titer Reference Value: <1:240 ............... ............... ............... ............... BELL CAPTAIN-Tr Negative titer Reference Value : <1:240 ............... ............... ............... ............... CASPR2-IgG CBAN egative Reference Value : Negative ............... ............... ............... ............... LGI1-IgG CBANeg ative Reference Value: Negative Laboratory Note s:This test was developed and i ts performancechar acteristics determined by [facility] in a mannerconsisten t with CLIA requirements. T his test has not beencleared or approved by the U.S. Food a nd DrugAdministrat ion. ==== Performing [address] [address] [facility] [id number] 18:00:00 Test Item Value Reference Interpretation Comments Range Misc test Paraneoplastic, name (test Autoantibody code = Evaluation 2566) Misc test SEE COMMENT Report Status: FINAL result (test code = 1730) Paraneoplastic Autoantibody Eval, Serum =====Interpreti ve Comments A negative basic paraneoplastic evaluation resu lt does not rule out all cl inically relevant antibo dies. If indicated, a comprehensivene urological phenotype-speci fic autoimmune/para neoplastic evaluation (e.g . encephalopathy, movement disorders, myel opathy, or axonalneuropath y) should be considered [email or web address] [email or web address] urology-evoluti on/. These eval uations include screening cell- based assays optimized for d etection of recently discov ered antibodies. ............... ............... ............... ............... Amphiphysin Ab Negative titer Reference Value : <1:240 ............... ............... ............... ............... AGNA-1 Negative titer Reference Value : <1:240 ............... ............... ............... ............... LIDIA-1 Negative titer Reference Value : <1:240 ............... ............... ............... ............... Reflex Added No ne. ............... ............... ............... ............... LIDIA-2 Negative titer Reference Value : <1:240 ............... ............... ............... ............... LIDIA-3 Negative titer Reference Value : <1:240 ............... ............... ............... ............... CRMP-5-IgG Nega tive titer Reference Value : <1:240 ............... ............... ............... ............... Neuronal (V-G) K+ Channel Ab, S 0.02 nmol/L Reference Value: <=0.02 ............... ............... ............... ............... P/Q-Type Calciu m Channel Ab 0.01 nmol/L Re ference Value: <=0.02 ............... ............... ............... ............... BELL CAPTAIN-1 Negative titer Reference Value : <1:240 ............... ............... ............... ............... BELL CAPTAIN-2 Negative titer Reference Value : <1:240 ............... ............... ............... ............... BELL CAPTAIN-Tr Negative titer Reference Value : <1:240 ............... ............... ............... ............... CASPR2-IgG CBAN egative Reference Value : Negative ............... ............... ............... ............... LGI1-IgG CBANeg ative Reference Value: Negative Laboratory Note s:This test was developed and i ts performancechar acteristics determined by [facility] in a mannerconsisten t with CLIA requirements. T his test has not beencleared or approved by the U.S. Food a nd DrugAdministrat ion. ==== [place] [address] [facility] [id number] 18:00:00 Test Item Value Reference Interpretation Comments Range Misc test Paraneoplastic, name (test Autoantibody code = Evaluation 2566) Misc test SEE COMMENT Report Status: FINAL result (test code = 1730) Paraneoplastic Autoantibody Eval, Serum =====Interpreti ve Comments A negative basic paraneoplastic evaluation resu lt does not rule out all cl inically relevant antibo dies. If indicated, a comprehensivene urological phenotype-speci fic autoimmune/para neoplastic evaluation (e.g . encephalopathy, movement disorders, myel opathy, or axonalneuropath y) should be considered [email or web address] [email or web address]-evoluti on/. These eval uations include screening cell- based assays optimized for d etection of recently discov ered antibodies. ............... ............... ............... ............... Amphiphysin Ab Negative titer Reference Value : <1:240 ............... ............... ............... ............... AGNA-1 Negative titer Reference Value : <1:240 ............... ............... ............... ............... LIDIA-1 Negative titer Reference Value : <1:240 ............... ............... ............... ............... Reflex Added No ne. ............... ............... ............... ............... LIDIA-2 Negativ e titer Reference Value : <1:240 ............... ............... ............... ............... LIDIA-3 Negativ e titer Reference Value : <1:240 ............... ............... ............... ............... CRMP-5-IgG Neg ative titer Reference Value : <1:240 ............... ............... ............... ............... Neuronal (V-G) K+ Channel Ab, S 0.02 nmol/L Reference Value: <=0.02 ............... ............... ............... ............... P/Q-Type Calciu m Channel Ab 0.01 nmol/L Ref erence Value: <=0.02 ............... ............... ............... ............... BELL CAPTAIN-1 Negative titer Reference Value : <1:240 ............... ............... ............... ............... BELL CAPTAIN-2 Negative titer Reference Value : <1:240 ............... ............... ............... ............... BELL CAPTAIN-Tr Negativ e titer Reference Value : <1:240 ............... ............... ............... ............... CASPR2-IgG CBAN egative Reference Value : Negative ............... ............... ............... ............... LGI1-IgG CBANeg ative Reference Value: Negative Laboratory Note s:This test was developed and i ts performancechar acteristics determined by [facility] in a mannerconsisten t with CLIA requirements. T his test has not beencleared or approved by the U.S. Food a nd DrugAdministrat ion. ==== [place] [address] [facility] [id number] 18:00:00 Test Item Value Reference Interpretation Comments Range Misc test Paraneoplastic, name (test Autoantibody code = Evaluation 2566) Misc test SEE COMMENT Report Status: FINAL result (test code = 1730) Paraneoplastic Autoantibody Eval, Serum =====Interpreti ve Comments A negative basic paraneoplastic evaluation resu lt does not rule out all cl inically relevant antibo dies. If indicated, a comprehensivene urological phenotype-speci fic autoimmune/para neoplastic evaluation (e.g . encephalopathy, movement disorders, myel opathy, or axonalneuropath y) should be considered [email or web address] [email or web address] urology-evoluti on/. These eval uations include screening cell- based assays optimized for d etection of recently discov ered antibodies. ............... ............... ............... ............... Amphiphysin Ab Negative titer Reference Value : <1:240 ............... ............... ............... ............... AGNA-1 Negative titer Reference Value : <1:240 ............... ............... ............... ............... LIDIA-1 Negative titer Reference Value : <1:240 ............... ............... ............... ............... Reflex Added No ne. ............... ............... ............... ............... LIDIA-2 Negative titer Reference Value : <1:240 ............... ............... ............... ............... LIDIA-3 Negative titer Reference Value : <1:240 ............... ............... ............... ............... CRMP-5-IgG Nega tive titer Reference Value : <1:240 ............... ............... ............... ............... Neuronal (V-G) K+ Channel Ab, S 0.02 nmol/L R eference Value: <=0.02 ............... ............... ............... ............... P/Q-Type Calciu m Channel Ab 0.01 nmol/L Ref erence Value: <=0.02 ............... ............... ............... ............... BELL CAPTAIN-1 Negative titer Reference Value: <1:240 ............... ............... ............... ............... BELL CAPTAIN-2 Negative titer Reference Value: <1:240 ............... ............... ............... ............... BELL CAPTAIN-Tr Negative titer Reference Value : <1:240 ............... ............... ............... ............... CASPR2-IgG CBAN egative Reference Value : Negative ............... ............... ............... ............... LGI1-IgG CBANeg ative Reference Value : Negative Laboratory Note s:This test was developed and i ts performancechar acteristics determined by [facility] in a mannerconsisten t with CLIA requirements. T his test has not beencleared or approved by the U.S. Food a nd DrugAdministrat ion. ==== Performing [place] [id number] [place], [place] [address]12022-09-14 19:17:00 Test Item Value Reference Range Interpretation Comments POC glucose (test code = 120 mg/dL 65-99 H Ope rator Name: Rai [id number]) Shahbaz ID: [id number] able : RN Notified Lab Interpretation (test Abnormal code = 75947-1) [facility]2022-09-14 19:17:00 Test Item Value Reference Range Interpretation Comments POC glucose (test code = 120 mg/dL 65-99 H Ope rator Name: Rai [id number]) Shahbaz ID: [id number] able : RN Notified Lab Interpretation (test Abnormal code = 63574-5) [facility]2022-09-14 19:17:00 Test Item Value Reference Range Interpretation Comments POC glucose (test code = 120 mg/dL 65-99 H Ope rator Name: Rai [id number]) Shahbaz ID: [id number] able : RN Notified Lab Interpretation (test Abnormal code = 85663-2) [facility]2022-09-14 19:17:00 Test Item Value Reference Range Interpretation Comments POC glucose (test code = 120 mg/dL 65-99 H Ope rator Name: Rai [id number]) Shahbaz ID: [id number] able : RN Notified Lab Interpretation (test Abnormal code = 10621-8) [facility] [id number] 19:17:00 Test Item Value Reference Range Interpretation Comments POC glucose (test code = 120 mg/dL 65-99 H Ope rator Name: Rai [id number]) Shahbaz ID: [id number] able : RN Notified Lab Interpretation (test Abnormal code = 48612-5) [facility] [id number] 19:17:00 Test Item Value Reference Range Interpretation Comments POC glucose (test code = 120 mg/dL 65-99 H Ope rator Name: Rai [id number]) Shahbaz ID: [id number] able : RN Notified Lab Interpretation (test Abnormal code = 50880-5) [facility] [id number] 19:17:00 Test Item Value Reference Range Interpretation Comments POC glucose (test code = 120 mg/dL 65-99 H Ope rator Name: Rai 71208-1) Shahbaz ID: [id number] able : RN Notified Lab Interpretation (test Abnormal code = 36751-5) [facility] [id number] 19:17:00 Test Item Value Reference Range Interpretation Comments POC glucose (test code = 120 mg/dL 65-99 H Ope rator Name: Rai [id number]) Shahbaz ID: [id number] able : RN Notified Lab Interpretation (test Abnormal code = 64826-5) [facility] metabolic 2000 panel - Serum or [id number] 07:50:00 Test Item Value Reference Range Interpretation Comments glucose (test code = glucose) 117 mg/dL 82-115 H Urea nitrogen [Mass/volume] in 34 mg/dL 8-23 H Serum or Plasma (test code = 3094-0) osmolality calculated,serum (test 290 mOsm/kg 280-300 code = osmolality calculated,serum) creatinine (test code = 1.62 mg/dL 0.50-0.90 H creatinine) glomerular filtration rate (test 30.27 L code = glomerular filtration rate) BUN/creatinine ratio (test code = 21.0 12.0-20.0 H BUN/creatinine ratio) sodium level (test code = sodium 141 mmol/L 135-145 level) Potassium [Moles/volume] in Body 4.6 mmol/L 3.5-5.2 fluid (test code = 2821-7) chloride level (test code = 109 mmol/L 98-108 H chloride level) CO2 (test code = CO2) 22 mmol/L 21-32 anion gap (test code = anion gap) 14.6 mEq/L 12.0-20.0 calcium level (test code = 9.7 mg/dL 8.8-10.2 calcium level) [facility] in Serum or [id number] 04:58:00 Test Item Value Reference Range Interpretation Comments Urea nitrogen [Mass/volume] in Serum 27 mg/dL 8-23 H or Plasma (test code = 3094-0) [facility] [Mass/volume] in Serum or [id number] 04:58:00 Test Item Value Reference Range Interpretation Comments creatinine (test code = 1.95 mg/dL 0.50-0.90 H creatinine) [facility] HospitalGlomer[facility] filtration rate/1.73 sq M.predicted [Volume Rate/Area] in Serum, Plasma or [id number] 04:58:00 Test Item Value Reference Range Interpretation Comments glomerular filtration rate (test code = 24.44 L glomerular filtration rate) [facility] W Auto Differential panel - [id number] 12:43:00 Test Item Value Reference Range Interpretation Comments white blood count (test code = 7.2 K/uL 4.0-11.5 white blood count) red blood count (test code = red 3.23 M/uL 3.80-5.20 L blood count) hemoglobin (test code = 10.3 g/dL 10.5-15.7 L hemoglobin) hematocrit (test code = 31.9 % 34.0-50.0 L hematocrit) MCV [Entitic volume] (test code = 98.8 fL 86.0-100.0 45224-8) mean corpuscular hemoglobin (test 31.9 pg 26.2-33.4 code = mean corpuscular hemoglobin) mean corpuscular HGB conc (test 32.3 g/dL 30.0-34.0 code = mean corpuscular HGB conc) red cell distribution width (test 14.6 % 12.0-15.5 code = red cell distribution width) platelet count (test code = 201 K/uL 165-450 platelet count) mean platelet volume (test code = 10.0 fL 9.4-12.6 mean platelet volume) Segmented neutrophils/100 60.7 % 44.4-80.1 leukocytes in Blood (test code = 74125-7) Immature granulocytes [#/volume] 0.02 K/uL 0.00-0.03 in Blood (test code = 03407-7) lymphocyte% (test code = 24.0 % 10.0-50.0 lymphocyte%) mono % (test code = mono %) 8.9 % 3.6-12.0 eos % (test code = eos %) 5.3 % 0.0-5.4 basophil % (test code = basophil 0.8 % 0.1-1.2 %) Band form neutrophils [#/volume] 4.35 K/uL 1.56-6.13 in Blood (test code = 41907-9) Lymphocytes [#/volume] in Specimen 1.72 K/uL 1.18-3.74 by Automated count (test code = 39891-6) mono # (test code = mono #) 0.64 K/uL 0.24-0.86 eos # (test code = eos #) 0.38 K/uL 0.04-0.36 H basophil # (test code = basophil 0.06 K/uL 0.01-0.08 #) NRBC% (test code = NRBC%) 0 /100 WBC 0-0.2 NRBC# (test code = NRBC#) 0 K/uL [facility] metabolic 2000 panel - Serum or [id number] 12:43:00 Test Item Value Reference Range Interpretation Comments Glucose [Mass/volume] in Serum or 73 mg/dL 82-115 L Plasma (test code = 2345-7) Urea nitrogen [Mass/volume] in 29 mg/dL 8-23 H Serum or Plasma (test code = 3094-0) osmolality calculated,serum (test 282 mOsm/kg 280-300 code = osmolality calculated,serum) creatinine (test code = 1.89 mg/dL 0.50-0.90 H creatinine) glomerular filtration rate (test 25.34 L code = glomerular filtration rate) BUN/creatinine ratio (test code = 15.3 12.0-20.0 BUN/creatinine ratio) sodium level (test code = sodium 139 mmol/L 135-145 level) potassium level (test code = 4.5 mmol/L 3.5-5.2 potassium level) chloride level (test code = 106 mmol/L 98-108 chloride level) CO2 (test code = CO2) 20 mmol/L 21-32 L anion gap (test code = anion gap) 17.5 mEq/L 12.0-20.0 calcium level (test code = 9.1 mg/dL 8.8-10.2 calcium level) [facility], method unspecified - [id number] 00:00:00NeutrophilsBandLymphocyteAtypical LymphMonocyteEosinophilBasophilMetamyelocyteMyelocytePromyelocyteBlastsNucleated Red Blood CellAbs Neutrophil Count (Man)Abs Lymph Count (Man)Abs Monocyte Count (Man)Abs Eosinophil Count (Man)Abs Basophil Count (Man)Platelet EstimatePlatelet MorphologyPolychromasiaPoik ilocytosisAnisocytosisMacrocytosisTear Drop CellsOvalocytesStomatocyteToxic GranulationBurr CellsAcanthocytesToxic VacuolationPer[facility] Hospital antibiotic sensitivity testing, [id number] 08:08:00 Test Item Value Reference Range Interpretation Comments Gentamicin [Susceptibility] by <=2 Minimum inhibitory concentration (DIOGENES) (test code = 267-5) Ampicillin [Susceptibility] by >16 Minimum inhibitory concentration (DIOEGNES) (test code = 28-1) Trimethoprim+Sulfamethoxazole =07/03 [Susceptibility] by Minimum inhibitory concentration (DIOGENES) (test code = 516-5) Tetracycline [Susceptibility] by 4 ug/mL Minimum inhibitory concentration (DIOGENES) (test code = 496-0) Amoxicillin+Clavulanate =16/8 [Susceptibility] by Minimum inhibitory concentration (DIOGENES) (test code = 20-8) Tobramycin [Susceptibility] by >8 Minimum inhibitory concentration (DIOGENES) (test code = 508-2) Nitrofurantoin [Susceptibility] by >64 Minimum inhibitory concentration (DIOGENES) (test code = 363-2) cefOXitin [Susceptibility] by >16 Minimum inhibitory concentration (DIOGENES) (test code = 116-4) levoFLOXacin [Susceptibility] by >4 Minimum inhibitory concentration (DIOGENES) (test code = 95424-1) cefTAZidime [Susceptibility] by >16 Minimum inhibitory concentration (DIOGENES) (test code = 133-9) cefTRIAXone [Susceptibility] by >32 Minimum inhibitory concentration (DIOGENES) (test code = 141-2) Ciprofloxacin [Susceptibility] by >2 Minimum inhibitory concentration (DIOGENES) (test code = 185-9) Ampicillin+Sulbactam =16/8 [Susceptibility] by Minimum inhibitory concentration (DIOGENES) (test code = 32-3) Ertapenem [Susceptibility] by >2 Minimum inhibitory concentration (DIOGENES) (test code = 34796-5) Aztreonam [Susceptibility] by >16 Minimum inhibitory concentration (DIOGENES) (test code = 44-8) Cefepime [Susceptibility] by Minimum >16 inhibitory concentration (DIOGENES) (test code = 6644-9) Meropenem [Susceptibility] by >8 Minimum inhibitory concentration (DIOGENES) (test code = 6652-2) Moxifloxacin [Susceptibility] by >4 Minimum inhibitory concentration (DIOGENES) (test code = 33160-0) Amikacin [Susceptibility] by Minimum 16 ug/mL inhibitory concentration (DIOGENES) (test code = 12-5) Piperacillin+Tazobactam =64/4 [Susceptibility] by Minimum inhibitory concentration (DIOGENES) (test code = 412-7) Ceftaroline [Susceptibility] by >1 Minimum inhibitory concentration (DIOGENES) (test code = 31004-9) [facility] - Urine 2021-12-27 08:08:00 Test Item Value Reference Range Interpretation Comments Color of Urine by Auto (test light yellow code = 80028-0) Appearance of Urine (test code SL cloudy clear A = 5767-9) Glucose [Presence] in Urine by negative negative Automated test strip (test code = 96383-1) Bilirubin.total [Mass/volume] negative negative in Urine (test code = 1978-6) Ketones [Mass/volume] in Urine negative negative by Automated test strip (test code = 13410-6) Specific gravity of Urine by 1.007 1.003-1.030 Automated test strip (test code = 08056-0) blood urine (test code = blood =1 negative H urine) pH of Urine (test code = 7.500 5-9 2756-5) protein urine (UA) (test code = trace negative protein urine (UA)) Urobilinogen [Presence] in normal 0.2-1.0 Urine (test code = 07385-4) Nitrite [Presence] in Urine by negative negative Test strip (test code = 5802-4) Leukocyte esterase [Presence] =4 negative H in Urine by Automated test strip (test code = 74124-7) Erythrocytes [#/volume] in =6-10 0-5 H Urine by Automated count (test code = 798-9) Leukocytes [#/area] in Urine >50 0-5 H sediment by Automated count (test code = 64787-3) Epithelial cells [Presence] in =1-5 0-5 Urine sediment by Light microscopy (test code = 21463-5) Bacteria identified in Urine by small(1 none detect Culture (test code = 630-4) Casts [#/area] in Urine none detected none detect sediment by Automated count (test code = 87056-9) urine culture added? (test code yes = urine culture added?) [facility] GroupBacteria identified in Urine by [id number] 08:08:00Bacteria Ur CultCatamanchester [facility] hospitala [facility] Groupantibiotic sensitivity testing, [id number] 08:08:00 Test Item Value Reference Range Interpretation Comments Gentamicin [Susceptibility] by >8 Minimum inhibitory concentration (DIOGENES) (test code = 267-5) Ampicillin [Susceptibility] by >16 Minimum inhibitory concentration (DIOGENES) (test code = 28-1) Trimethoprim+Sulfamethoxazole =2/38 [Susceptibility] by Minimum inhibitory concentration (DIOGENES) (test code = 516-5) Tetracycline [Susceptibility] by >8 Minimum inhibitory concentration (DIOGENES) (test code = 496-0) Amoxicillin+Clavulanate =8/4 [Susceptibility] by Minimum inhibitory concentration (DIOGENES) (test code = 20-8) Tobramycin [Susceptibility] by >8 Minimum inhibitory concentration (DIOGENES) (test code = 508-2) Nitrofurantoin [Susceptibility] by >64 Minimum inhibitory concentration (DIOGENES) (test code = 363-2) cefOXitin [Susceptibility] by <=4 Minimum inhibitory concentration (DIOGENES) (test code = 116-4) levoFLOXacin [Susceptibility] by >4 Minimum inhibitory concentration (DIOGENES) (test code = 08944-6) cefTAZidime [Susceptibility] by <=2 Minimum inhibitory concentration (DIOGENES) (test code = 133-9) cefTRIAXone [Susceptibility] by <=1 Minimum inhibitory concentration (DIOGENES) (test code = 141-2) Ciprofloxacin [Susceptibility] by >2 Minimum inhibitory concentration (DIOGENES) (test code = 185-9) Ampicillin+Sulbactam =16/8 [Susceptibility] by Minimum inhibitory concentration (DIOGENES) (test code = 32-3) Ertapenem [Susceptibility] by <=0.25 Minimum inhibitory concentration (DIOGENES) (test code = 12490-7) Aztreonam [Susceptibility] by <=2 Minimum inhibitory concentration (DIOGENES) (test code = 44-8) Cefepime [Susceptibility] by <=1 Minimum inhibitory concentration (DIOGENES) (test code = 6644-9) Moxifloxacin [Susceptibility] by >4 Minimum inhibitory concentration (DIOGENES) (test code = 62750-3) Amikacin [Susceptibility] by <=8 Minimum inhibitory concentration (DIOGENES) (test code = 12-5) Piperacillin+Tazobactam =2/4 [Susceptibility] by Minimum inhibitory concentration (DIOGENES) (test code = 412-7) Ceftaroline [Susceptibility] by 0.5 ug/mL Minimum inhibitory concentration (DIOGENES) (test code = 98807-4) [facility], [id number] 08:08:00 Test Item Value Reference Range Interpretation Comments Gentamicin [Susceptibility] by <=2 Minimum inhibitory concentration (DIOGENES) (test code = 267-5) Ampicillin [Susceptibility] by >16 Minimum inhibitory concentration (DIOGENES) (test code = 28-1) Trimethoprim+Sulfamethoxazole =/ [Susceptibility] by Minimum inhibitory concentration (DIOGENES) (test code = 516-5) Tetracycline [Susceptibility] by 4 ug/mL Minimum inhibitory concentration (DIOGENES) (test code = 496-0) Amoxicillin+Clavulanate =16/8 [Susceptibility] by Minimum inhibitory concentration (DIOGENES) (test code = 20-8) Tobramycin [Susceptibility] by >8 Minimum inhibitory concentration (DIOGENES) (test code = 508-2) Nitrofurantoin [Susceptibility] by >64 Minimum inhibitory concentration (DIOGENES) (test code = 363-2) cefOXitin [Susceptibility] by >16 Minimum inhibitory concentration (DIOGENES) (test code = 116-4) levoFLOXacin [Susceptibility] by >4 Minimum inhibitory concentration (DIOGENES) (test code = 77784-4) cefTAZidime [Susceptibility] by >16 Minimum inhibitory concentration (DIOGENES) (test code = 133-9) cefTRIAXone [Susceptibility] by >32 Minimum inhibitory concentration (DIOGENES) (test code = 141-2) Ciprofloxacin [Susceptibility] by >2 Minimum inhibitory concentration (DIOGENES) (test code = 185-9) Ampicillin+Sulbactam =16/8 [Susceptibility] by Minimum inhibitory concentration (DIOGENES) (test code = 32-3) Ertapenem [Susceptibility] by >2 Minimum inhibitory concentration (DIOGENES) (test code = 65455-9) Aztreonam [Susceptibility] by >16 Minimum inhibitory concentration (DIOGENES) (test code = 44-8) Cefepime [Susceptibility] by Minimum >16 inhibitory concentration (DIOGENES) (test code = 6644-9) Meropenem [Susceptibility] by >8 Minimum inhibitory concentration (DIOGENES) (test code = 6652-2) Moxifloxacin [Susceptibility] by >4 Minimum inhibitory concentration (DIOGENES) (test code = 49946-5) Amikacin [Susceptibility] by Minimum 16 ug/mL inhibitory concentration (DIOGENES) (test code = 12-5) Piperacillin+Tazobactam =64/4 [Susceptibility] by Minimum inhibitory concentration (DIOGENES) (test code = 412-7) Ceftaroline [Susceptibility] by >1 Minimum inhibitory concentration (DIOGENES) (test code = 79114-6) [facility] GroupUr[facility] complete [facility] Culture panel - Urine 2021-10-07 02:58:00 Test Item Value Reference Range Interpretation Comments Color of Urine by Auto yellow (test code = 72171-9) Appearance of Urine (test cloudy clear A code = 5767-9) Glucose [Presence] in negative negative Urine by Automated test strip (test code = 02787-0) Bilirubin.total negative negative [Mass/volume] in Urine (test code = 1977-6) Ketones [Mass/volume] in negative negative Urine by Automated test strip (test code = 16467-3) Specific gravity of Urine 1.012 1.003-1.030 by Automated test strip (test code = 18302-2) blood urine (test code = =1 negative H blood urine) pH of Urine (test code = 7.500 5-9 2756-5) protein urine (UA) (test =1+ (70 negative H code = protein urine (UA)) Urobilinogen [Presence] normal 0.2-1.0 in Urine (test code = 67336-5) Nitrite [Presence] in negative negative Urine by Test strip (test code = 5802-4) Leukocyte esterase =4 negative H [Presence] in Urine by Automated test strip (test code = 45328-7) Erythrocytes [#/volume] =15-19 0-5 H in Urine by Automated count (test code = 798-9) Leukocytes [#/area] in >50 0-5 H Urine sediment by Automated count (test code = 37212-5) Epithelial cells =20-29 0-5 [Presence] in Urine sediment by Light microscopy (test code = 25043-6) Bacteria identified in tntc (4 none detect H Urine by Culture (test code = 630-4) Casts [#/area] in Urine =6-10 none detect H sediment by Automated count (test code = 57477-5) urine culture added? yes (test code = urine culture added?) transitional epi cells, =11-25 0-5 urine (test code = transitional epi cells, urine) Mucus [Presence] in Urine =1 none detect by Automated (test code = 81358-4) Amorphous sediment moderate none seen [Presence] in Urine sediment by Light microscopy (test code = 8246-1) Pathologic casts fine granular (6-10 none detect A [Presence] in Urine by Automated (test code = 94574-3) [facility] GroupBacteria identified in Urine by [id number] 02:58:00Bacteria Ur CultMatagorda Medical Groupantibiotic sensitivity testing, [id number] 02:58:00 Test Item Value Reference Range Interpretation Comments Gentamicin [Susceptibility] by Minimum <=2 inhibitory concentration (DIOGENES) (test code = 267-5) Ampicillin [Susceptibility] by Minimum >16 inhibitory concentration (DIOGENES) (test code = 28-1) Cefazolin [Susceptibility] by Minimum <=1 inhibitory concentration (DIOGENES) (test code = 76-0) Trimethoprim+Sulfamethoxazole =0.5 [Susceptibility] by Minimum inhibitory concentration (DIOGENES) (test code = 516-5) Tetracycline [Susceptibility] by <=2 Minimum inhibitory concentration (DIOGENES) (test code = 496-0) Amoxicillin+Clavulanate =8/4 [Susceptibility] by Minimum inhibitory concentration (DIOGENES) (test code = 20-8) Tobramycin [Susceptibility] by Minimum <=2 inhibitory concentration (DIOGENES) (test code = 508-2) Nitrofurantoin [Susceptibility] by <=16 Minimum inhibitory concentration (DIOGENES) (test code = 363-2) cefOXitin [Susceptibility] by Minimum <=4 inhibitory concentration (DIOGENES) (test code = 116-4) levoFLOXacin [Susceptibility] by >4 Minimum inhibitory concentration (DIOGENES) (test code = 55363-9) cefTAZidime [Susceptibility] by <=2 Minimum inhibitory concentration (DIOGENES) (test code = 133-9) cefTRIAXone [Susceptibility] by <=1 Minimum inhibitory concentration (DIOGENES) (test code = 141-2) Ciprofloxacin [Susceptibility] by >2 Minimum inhibitory concentration (DIOGENES) (test code = 185-9) Ampicillin+Sulbactam [Susceptibility] =16/8 by Minimum inhibitory concentration (DIOGENES) (test code = 32-3) Ertapenem [Susceptibility] by Minimum <=0.25 inhibitory concentration (DIOGENES) (test code = 30623-7) Aztreonam [Susceptibility] by Minimum <=2 inhibitory concentration (DIOGENES) (test code = 44-8) Cefepime [Susceptibility] by Minimum <=1 inhibitory concentration (DIOGENES) (test code = 6644-9) Meropenem [Susceptibility] by Minimum <=0.5 inhibitory concentration (DIOGENES) (test code = 6652-2) Moxifloxacin [Susceptibility] by >4 Minimum inhibitory concentration (DIOGENES) (test code = 23570-3) Amikacin [Susceptibility] by Minimum <=8 inhibitory concentration (DIOGENES) (test code = 12-5) Piperacillin+Tazobactam =2/4 [Susceptibility] by Minimum inhibitory concentration (DIOGENES) (test code = 412-7) Ceftaroline [Susceptibility] by <=0.25 Minimum inhibitory concentration (DIOGENES) (test code = 86148-3) Tigecycline [Susceptibility] by <=1 Minimum inhibitory concentration (DIOGENES) (test code = 09513-3) [facility] - Urine 2021-05-16 02:50:00 Test Item Value Reference Range Interpretation Comments Color of Urine by Auto (test code = yellow 76604-8) Appearance of Urine (test code = cloudy clear A 5767-9) Glucose [Presence] in Urine by negative negative Automated test strip (test code = 87536-6) Bilirubin.total [Mass/volume] in negative negative Urine (test code = 1978-6) Ketones [Mass/volume] in Urine by negative negative Automated test strip (test code = 27676-1) Specific gravity of Urine by 1.011 1.003-1.030 Automated test strip (test code = 46710-5) blood urine (test code = blood =1 negative H urine) pH of Urine (test code = 2756-5) 6.500 5-9 protein urine (UA) (test code = =1+ (50 negative H protein urine (UA)) Urobilinogen [Presence] in Urine normal 0.2-1.0 (test code = 51732-5) Nitrite [Presence] in Urine by Test negative negative strip (test code = 5802-4) Leukocyte esterase [Presence] in =4 negative H Urine by Automated test strip (test code = 89457-3) Erythrocytes [#/volume] in Urine by =11-14 0-5 H Automated count (test code = 798-9) Leukocytes [#/area] in Urine >50 0-5 H sediment by Automated count (test code = 15612-8) Epithelial cells [Presence] in Urine =1-5 0-5 sediment by Light microscopy (test code = 74007-5) Bacteria identified in Urine by tntc (4 none detect H Culture (test code = 630-4) Casts [#/area] in Urine sediment by =2-5 none detect Automated count (test code = 25711-4) urine culture added? (test code = yes urine culture added?) [facility] identified in Urine by [id number] 02:50:00[facility] Centerantibiotic sensitivity testing, [id number] 02:50:00 Test Item Value Reference Range Interpretation Comments Gentamicin [Susceptibility] by Minimum <=2 inhibitory concentration (DIOGENES) (test code = 267-5) Ampicillin [Susceptibility] by Minimum <=4 inhibitory concentration (DIOGENES) (test code = 28-1) ceFAZolin [Susceptibility] by Minimum <=1 inhibitory concentration (DIOGENES) (test code = 76-0) Trimethoprim+Sulfamethoxazole =0.5 [Susceptibility] by Minimum inhibitory concentration (DIOGENES) (test code = 516-5) Tetracycline [Susceptibility] by <=2 Minimum inhibitory concentration (DIOGENES) (test code = 496-0) Amoxicillin+Clavulanate =4/2 [Susceptibility] by Minimum inhibitory concentration (DIOGENES) (test code = 20-8) Tobramycin [Susceptibility] by Minimum <=2 inhibitory concentration (DIOGENES) (test code = 508-2) Nitrofurantoin [Susceptibility] by <=16 Minimum inhibitory concentration (DIOGENES) (test code = 363-2) cefOXitin [Susceptibility] by Minimum <=4 inhibitory concentration (DIOGENES) (test code = 116-4) levoFLOXacin [Susceptibility] by <=0.5 Minimum inhibitory concentration (DIOGENES) (test code = 41663-2) cefTAZidime [Susceptibility] by <=2 Minimum inhibitory concentration (DIOGENES) (test code = 133-9) cefTRIAXone [Susceptibility] by <=1 Minimum inhibitory concentration (DIOGENES) (test code = 141-2) Ciprofloxacin [Susceptibility] by <=0.25 Minimum inhibitory concentration (DIOGENES) (test code = 185-9) Ampicillin+Sulbactam [Susceptibility] =2/1 by Minimum inhibitory concentration (DIOGENES) (test code = 32-3) Ertapenem [Susceptibility] by Minimum <=0.25 inhibitory concentration (DIOGENES) (test code = 56978-7) Aztreonam [Susceptibility] by Minimum <=2 inhibitory concentration (DIOGENES) (test code = 44-8) Cefepime [Susceptibility] by Minimum <=1 inhibitory concentration (DIOGENES) (test code = 6644-9) Meropenem [Susceptibility] by Minimum <=0.5 inhibitory concentration (DIOGENES) (test code = 6652-2) Moxifloxacin [Susceptibility] by <=1 Minimum inhibitory concentration (DIOGENES) (test code = 68313-5) Amikacin [Susceptibility] by Minimum <=8 inhibitory concentration (DIOGENES) (test code = 12-5) Piperacillin+Tazobactam =2/4 [Susceptibility] by Minimum inhibitory concentration (DIOGENES) (test code = 412-7) Ceftaroline [Susceptibility] by <=0.25 Minimum inhibitory concentration (DIOGENES) (test code = 40117-2) Tigecycline [Susceptibility] by <=1 Minimum inhibitory concentration (DIOGENES) (test code = 32725-9) [facility] HospitalHemoglobin A1c [Mass/volume] in [id number] 09:18:00 Test Item Value Reference Range Interpretation Comments Hemoglobin A1c [Mass/volume] in Blood 4.7 % 4.0-6.0 (test code = 61572-0) [facility] HospitalComprehensive [facility] 2000 panel - Serum or Plasma 2020-05-21 09:18:00 Test Item Value Reference Range Interpretation Comments glucose (test code = glucose) 95 mg/dL 82-115 Urea nitrogen [Mass/volume] in 33 mg/dL 8-23 H Serum or Plasma (test code = 3094-0) osmolality calculated,serum (test 281 mOsm/kg 280-300 code = osmolality calculated,serum) creatinine (test code = 1.8 mg/dL 0.50-0.90 H creatinine) glomerular filtration rate (test 26.94 L code = glomerular filtration rate) Urea nitrogen/Creatinine [Mass 18.3 12-20 Ratio] in Serum or Plasma (test code = 3097-3) sodium level (test code = sodium 137 mmol/L 135-145 level) Potassium [Moles/volume] in Body 4.7 mmol/L 3.5-5.2 fluid (test code = 2821-7) chloride level (test code = 106 mmol/L 98-108 chloride level) CO2 (test code = CO2) 17 mmol/L 21-32 L anion gap (test code = anion gap) 18.7 mEq/L 12-20 calcium level (test code = 8.7 mg/dL 8.8-10.2 L calcium level) total protein (test code = total 7.2 g/dL 6.6-8.7 protein) albumin (test code = albumin) 4.1 g/dL 3.5-5.2 globulin (test code = globulin) 3.1 gm/dL A/G ratio (test code = A/G ratio) 1.3 >1.0 bilirubin,total (test code = <0.3 0.0-1.2 bilirubin,total) AST/SGOT (test code = AST/SGOT) 21 U/L 15-32 Alanine aminotransferase 15 U/L 0-33 [Enzymatic activity/volume] in Serum or Plasma (test code = 1742-6) Alkaline phosphatase [Enzymatic 43 U/L 35-105 activity/volume] in Serum or Plasma (test code = 6768-6) [facility] HospitalLipid 1996 panel - Serum or [id number] 09:18:00 Test Item Value Reference Range Interpretation Comments cholesterol level (test code = 183 mg/dL 150-200 cholesterol level) triglycerides level (test code = 102 mg/dL <150 triglycerides level) HDL cholesterol (test code = HDL 39 mg/dL >65 L cholesterol) LDL cholesterol direct (test code = 127 mg/dL <100 H LDL cholesterol direct) cholesterol risk ratio (test code = 4.692 cholesterol risk ratio) [facility] HospitalIron and Iron binding capacity panel - Serum or Plasma 2020-05-21 09:18:00 Test Item Value Reference Range Interpretation Comments iron (fe) (test code = iron (fe)) 40 ug/dL 37-145 total iron binding capacity (test 295 ug/dL 260-445 code = total iron binding capacity) Iron saturation [Molar fraction] in 14 % 12-45 Serum or Plasma (test code = 44749-7) [facility] HospitalCobalamin (Vitamin B12) [Mass/volume] in Serum or Plasma 2020-05-21 09:18:00 Test Item Value Reference Range Interpretation Comments vitamin B12 (test code = vitamin 1402 pg/mL 211-946 H B12) [facility] HospitalThyrotropin [Units/volume] in Serum or [id number] 09:18:00 Test Item Value Reference Range Interpretation Comments Thyrotropin [Units/volume] in 2.22 uIU/mL 0.36-3.74 Serum or Plasma (test code = 3016-3) [facility] HospitalCB W Auto Differential panel - [id number] 09:18:00 Test Item Value Reference Range Interpretation Comments white blood count (test code = 7.6 K/uL 4.0-11.5 white blood count) red blood count (test code = red 3.16 M/uL 3.80-5.20 L blood count) hemoglobin (test code = 10.3 g/dL 10.5-15.7 L hemoglobin) hematocrit (test code = 32.6 % 34.0-50.0 L hematocrit) MCV [Entitic volume] (test code = 103.2 fL 86-100 H 32198-5) mean corpuscular hemoglobin (test 32.6 pg 26.2-33.4 code = mean corpuscular hemoglobin) mean corpuscular HGB conc (test 31.6 g/dL 30-34 code = mean corpuscular HGB conc) red cell distribution width (test 14.3 % 12.0-15.5 code = red cell distribution width) platelet count (test code = 200 K/uL 165-450 platelet count) mean platelet volume (test code = 10.2 fL 9.4-12.6 mean platelet volume) Segmented neutrophils/100 57.7 % 44.4-80.1 leukocytes in Blood (test code = 50230-7) Immature granulocytes [#/volume] 0.0 K/uL 0.0-0.03 in Blood (test code = 98593-3) lymphocyte% (test code = 27.5 % 10.0-50.0 lymphocyte%) mono % (test code = mono %) 8.3 % 3.6-12.0 eos % (test code = eos %) 5.2 % 0.0-5.4 Basophils/100 leukocytes in 0.9 % 0.1-1.2 Unspecified specimen (test code = 67838-8) Band form neutrophils [#/volume] 4.37 K/uL 1.56-6.13 in Blood (test code = 61781-2) Lymphocytes [#/volume] in 2.1 K/uL 1.18-3.74 Unspecified specimen by Automated count (test code = 76595-0) mono # (test code = mono #) 0.63 K/uL 0.24-0.86 eos # (test code = eos #) 0.39 K/uL 0.04-0.36 H basophil # (test code = basophil 0.07 K/uL 0.01-0.08 #) NRBC% (test code = NRBC%) 0 /100 WBC 0-0.2 NRBC# (test code = NRBC#) 0 K/uL [facility] HospitalDifferential panel, method unspecified - [id number] 09:18:00NeutrophilsBandLymphocyteMonocytePlatelet EstimateMaChoctaw Health CenterUrinalysis complete W Reflex Culture panel - [id number] 01:50:00 Test Item Value Reference Range Interpretation Comments Color of Urine by Auto (test light yellow code = 08755-1) Appearance of Urine (test code SL cloudy clear A = 5767-9) Glucose [Presence] in Urine by negative negative Automated test strip (test code = 17840-4) Bilirubin.total [Mass/volume] negative negative in Urine (test code = 1978-6) Ketones [Mass/volume] in Urine negative negative by Automated test strip (test code = 89205-4) Specific gravity of Urine by 1.011 1.003-1.030 Automated test strip (test code = 37544-1) blood urine (test code = blood trace negative urine) pH of Urine (test code = 6.000 5-9 2756-5) protein urine (UA) (test code = =1+ (30 negative H protein urine (UA)) Urobilinogen [Presence] in normal 0.2-1.0 Urine (test code = 95323-4) Nitrite [Presence] in Urine by negative negative Test strip (test code = 5802-4) Leukocyte esterase [Presence] =4 negative H in Urine by Automated test strip (test code = 76481-9) Erythrocytes [#/volume] in =1-5 0-5 Urine by Automated count (test code = 798-9) Leukocytes [#/area] in Urine >50 0-5 H sediment by Automated count (test code = 62630-0) Epithelial cells [Presence] in =1-5 0-5 Urine sediment by Light microscopy (test code = 85971-9) Bacteria identified in Urine by tntc (4 none detect H Culture (test code = 630-4) Casts [#/area] in Urine none detected none detect sediment by Automated count (test code = 04438-4) urine culture added? (test code yes = urine culture added?) [facility] HospitalBacteria identified in Urine by [id number] 01:50:00Bacteria Ur [facility]antib[facility], [id number] 01:50:00 Test Item Value Reference Range Interpretation Comments Gentamicin [Susceptibility] by Minimum <2 inhibitory concentration (DIOGENES) (test code = 267-5) Ampicillin [Susceptibility] by Minimum <8 inhibitory concentration (DIOGENES) (test code = 28-1) ceFAZolin [Susceptibility] by Minimum <2 inhibitory concentration (DIOGENES) (test code = 76-0) Trimethoprim+Sulfamethoxazole =2/38 [Susceptibility] by Minimum inhibitory concentration (DIOGENES) (test code = 516-5) Tetracycline [Susceptibility] by <4 Minimum inhibitory concentration (DIOGENES) (test code = 496-0) Amoxicillin+Clavulanate =8/4 [Susceptibility] by Minimum inhibitory concentration (DIOGENES) (test code = 20-8) Tobramycin [Susceptibility] by Minimum <4 inhibitory concentration (DIOGENES) (test code = 508-2) Nitrofurantoin [Susceptibility] by <32 Minimum inhibitory concentration (DIOGENES) (test code = 363-2) Cefotaxime [Susceptibility] by Minimum <2 inhibitory concentration (DIOGENES) (test code = 108-1) Cefepime [Susceptibility] by Minimum <8 inhibitory concentration (DIOGENES) (test code = 6644-9) levoFLOXacin [Susceptibility] by <2 Minimum inhibitory concentration (DIOGENES) (test code = 95289-2) Piperacillin+Tazobactam <16 [Susceptibility] by Minimum inhibitory concentration (DIOGENES) (test code = 412-7) cefTAZidime [Susceptibility] by Minimum <1 inhibitory concentration (DIOGENES) (test code = 133-9) cefTRIAXone [Susceptibility] by Minimum <1 inhibitory concentration (DIOGENES) (test code = 141-2) Ciprofloxacin [Susceptibility] by <1 Minimum inhibitory concentration (DIOGENES) (test code = 185-9) Imipenem [Susceptibility] by Minimum <1 inhibitory concentration (DIOGENES) (test code = 279-0) Ampicillin+Sulbactam [Susceptibility] =8/4 by Minimum inhibitory concentration (DIOGENES) (test code = 32-3) Ertapenem [Susceptibility] by Minimum <0.5 inhibitory concentration (DIOGENES) (test code = 13011-0) Aztreonam [Susceptibility] by Minimum <4 inhibitory concentration (DIOGENES) (test code = 44-8) Cefuroxime [Susceptibility] by Minimum <4 inhibitory concentration (DIOGENES) (test code = 77022-8) [facility] W Auto Differential panel - [id number] 06:29:00 Test Item Value Reference Range Interpretation Comments white blood count (test code = 7.2 K/uL 4.0-11.5 white blood count) red blood count (test code = red 3.16 M/uL 3.80-5.20 L blood count) hemoglobin (test code = 10.0 g/dL 10.5-15.7 L hemoglobin) hematocrit (test code = 32.2 % 34.0-50.0 L hematocrit) MCV [Entitic volume] (test code = 101.9 fL 86-100 H 15034-3) mean corpuscular hemoglobin (test 31.6 pg 26.2-33.4 code = mean corpuscular hemoglobin) mean corpuscular HGB conc (test 31.1 g/dL 30-34 code = mean corpuscular HGB conc) red cell distribution width (test 13.7 % 12.0-15.5 code = red cell distribution width) platelet count (test code = 195 K/uL 165-450 platelet count) mean platelet volume (test code = 9.6 fL 9.4-12.6 mean platelet volume) Segmented neutrophils/100 54.1 % 44.4-80.1 leukocytes in Blood (test code = 98611-1) Immature granulocytes [#/volume] 0.0 K/uL 0.0-0.03 in Blood (test code = 42437-9) lymphocyte% (test code = 28.9 % 10.0-50.0 lymphocyte%) mono % (test code = mono %) 8.4 % 3.6-12.0 eos % (test code = eos %) 7.1 % 0.0-5.4 H Basophils/100 leukocytes in 1.2 % 0.1-1.2 Unspecified specimen (test code = 17721-8) Band form neutrophils [#/volume] 3.91 K/uL 1.56-6.13 in Blood (test code = 02699-0) Lymphocytes [#/volume] in 2.1 K/uL 1.18-3.74 Unspecified specimen by Automated count (test code = 46184-6) mono # (test code = mono #) 0.61 K/uL 0.24-0.86 eos # (test code = eos #) 0.51 K/uL 0.04-0.36 H basophil # (test code = basophil 0.09 K/uL 0.01-0.08 H #) NRBC% (test code = NRBC%) 0 /100 WBC 0-0.2 NRBC# (test code = NRBC#) 0 K/uL [facility]Different[facility], method unspecified - [id number] 06:29:00NeutrophilsBandLymphocyteMonocytePlatelet EstimateMaChoctaw Health CenterComprehensive metabolic 2000 panel - Serum or [id number] 06:29:00 Test Item Value Reference Range Interpretation Comments Glucose [Mass/volume] in Serum or 86 mg/dL 82-115 Plasma (test code = 2345-7) Urea nitrogen [Mass/volume] in 32 mg/dL 8-23 H Serum or Plasma (test code = 3094-0) osmolality calculated,serum (test 278 mOsm/kg 280-300 L code = osmolality calculated,serum) creatinine (test code = 1.8 mg/dL 0.50-0.90 H creatinine) glomerular filtration rate (test 26.94 L code = glomerular filtration rate) Urea nitrogen/Creatinine [Mass 17.8 12-20 Ratio] in Serum or Plasma (test code = 3097-3) sodium level (test code = sodium 136 mmol/L 135-145 level) potassium level (test code = 4.6 mmol/L 3.5-5.2 potassium level) chloride level (test code = 105 mmol/L 98-108 chloride level) CO2 (test code = CO2) 16 mmol/L 21-32 L anion gap (test code = anion gap) 19.6 mEq/L 12-20 calcium level (test code = 7.5 mg/dL 8.8-10.2 L calcium level) total protein (test code = total 6.6 g/dL 6.6-8.7 protein) albumin (test code = albumin) 4.0 g/dL 3.5-5.2 globulin (test code = globulin) 2.6 gm/dL A/G ratio (test code = A/G ratio) 1.5 >1.0 bilirubin,total (test code = <0.3 0.0-1.2 bilirubin,total) AST/SGOT (test code = AST/SGOT) 14 U/L 15-32 L Alanine aminotransferase 8 U/L 0-33 [Enzymatic activity/volume] in Serum or Plasma (test code = 1742-6) Alkaline phosphatase [Enzymatic 50 U/L 35-105 activity/volume] in Serum or Plasma (test code = 6768-6) [facility] W Auto Differential panel - [id number] 01:33:00 Test Item Value Reference Range Interpretation Comments white blood count (test code = 7.4 K/uL 4.0-11.5 white blood count) red blood count (test code = red 3.13 M/uL 3.80-5.20 L blood count) hemoglobin (test code = 10.0 g/dL 10.5-15.7 L hemoglobin) hematocrit (test code = 32.0 % 34.0-50.0 L hematocrit) Erythrocyte mean corpuscular 102.2 fL 86-100 H volume [Entitic volume] (test code = 89168-0) mean corpuscular hemoglobin (test 31.9 pg 26.2-33.4 code = mean corpuscular hemoglobin) mean corpuscular HGB conc (test 31.3 g/dL 30-34 code = mean corpuscular HGB conc) red cell distribution width (test 13.4 % 12.0-15.5 code = red cell distribution width) platelet count (test code = 214 K/uL 165-450 platelet count) mean platelet volume (test code = 9.7 fL 9.4-12.6 mean platelet volume) Neutrophils.segmented/100 57.4 % 44.4-80.1 leukocytes in Blood (test code = 21788-1) Granulocytes Immature [#/volume] 0.0 K/uL 0.0-0.03 in Blood (test code = 32697-0) lymphocyte% (test code = 28.5 % 10.0-50.0 lymphocyte%) mono % (test code = mono %) 7.7 % 3.6-12.0 eos % (test code = eos %) 4.7 % 0.0-5.4 Basophils/100 leukocytes in 1.4 % 0.1-1.2 H Unspecified specimen (test code = 86389-9) Neutrophils.band form [#/volume] 4.24 K/uL 1.56-6.13 in Blood (test code = 47152-5) Lymphocytes [#/volume] in 2.1 K/uL 1.18-3.74 Unspecified specimen by Automated count (test code = 91944-7) mono # (test code = mono #) 0.57 K/uL 0.24-0.86 eos # (test code = eos #) 0.35 K/uL 0.04-0.36 basophil # (test code = basophil 0.10 K/uL 0.01-0.08 H #) NRBC% (test code = NRBC%) 0 /100 WBC 0-0.2 NRBC# (test code = NRBC#) 0 K/uL [facility] Hospitalldiffcomm-[id number] 01:33:00Differential comment-P [facility] HospitalComprehensive [facility] 2000 panel - Serum or Plasma 2019-07-25 01:33:00 Test Item Value Reference Range Interpretation Comments Glucose [Mass/volume] in Serum or 95 mg/dL 82-115 Plasma (test code = 2345-7) Urea nitrogen [Mass/volume] in 39 mg/dL 8-23 H Serum or Plasma (test code = 3094-0) osmolality calculated,serum (test 287 mOsm/kg 280-300 code = osmolality calculated,serum) creatinine (test code = 1.7 mg/dL 0.50-0.90 H creatinine) glomerular filtration rate (test 28.85 L code = glomerular filtration rate) Urea nitrogen/Creatinine [Mass 22.9 12-20 H Ratio] in Serum or Plasma (test code = 3097-3) sodium level (test code = sodium 139 mmol/L 135-145 level) potassium level (test code = 4.7 mmol/L 3.5-5.2 potassium level) chloride level (test code = 110 mmol/L 98-108 H chloride level) CO2 (test code = CO2) 18 mmol/L 21-32 L anion gap (test code = anion gap) 15.7 mEq/L 12-20 calcium level (test code = 7.6 mg/dL 8.8-10.2 L calcium level) total protein (test code = total 6.8 g/dL 6.6-8.7 protein) albumin (test code = albumin) 3.9 g/dL 3.5-5.2 globulin (test code = globulin) 2.9 gm/dL A/G ratio (test code = A/G ratio) 1.3 >1.0 bilirubin,total (test code = <0.3 0.0-1.2 bilirubin,total) AST/SGOT (test code = AST/SGOT) 17 U/L 15-32 Alanine aminotransferase 10 U/L 0-33 [Enzymatic activity/volume] in Serum or Plasma (test code = 1742-6) Alkaline phosphatase [Enzymatic 81 U/L 35-105 activity/volume] in Serum or Plasma (test code = 6768-6) [facility]Urinal[facility] complete [facility] Ref[facility] Culture panel - Urine 2019-05-13 01:40:00 Test Item Value Reference Range Interpretation Comments Color of Urine by Auto (test code lt. yellow = 03040-8) Appearance of Urine (test code = cloudy clear 5767-9) Glucose [Mass/volume] in Urine negative negative (test code = 2350-7) bilirubin, urine (test code = negative negative bilirubin, urine) ketone, urine (test code = negative negative ketone, urine) Specific gravity of Urine by 1.015 1.003-1.030 Automated test strip (test code = 58711-3) Hemoglobin [Presence] in Urine by moderate negative H Test strip (test code = 5794-3) pH of Urine (test code = 2756-5) 6.000 5-9 protein urine (UA) (test code = =1+ (30 negative H protein urine (UA)) Urobilinogen [Presence] in Urine 0.2 E.U./dL 0.2-1.0 (test code = 95003-5) Nitrite [Presence] in Urine by negative negative Test strip (test code = 5802-4) urine leukocyte esterase (test =1 negative H code = urine leukocyte esterase) Erythrocytes [Presence] in Urine =10-14 0-5 H (test code = 79141-2) WBC, urine (test code = WBC, =15-19 0-5 H urine) Epithelial cells [Presence] in =0-5 0-5 Urine sediment by Light microscopy (test code = 46880-0) bacteria, urine (test code = small (1 none detect H bacteria, urine) urine culture added? (test code = yes urine culture added?) [facility] HospitalBacteria identified in Urine by [id number] 01:40:00Bacteria Ur [facility], [id number] 01:40:00 Test Item Value Reference Range Interpretation Comments Gentamicin [Susceptibility] by >8 Minimum inhibitory concentration (DIOGENES) (test code = 267-5) Ampicillin [Susceptibility] by >16 Minimum inhibitory concentration (DIOGENES) (test code = 28-1) Trimethoprim+Sulfamethoxazole =2/38 [Susceptibility] by Minimum inhibitory concentration (DIOGENES) (test code = 516-5) Tetracycline [Susceptibility] by >8 Minimum inhibitory concentration (DIOGENES) (test code = 496-0) Amoxicillin+Clavulanate =8/4 [Susceptibility] by Minimum inhibitory concentration (DIOGENES) (test code = 20-8) Tobramycin [Susceptibility] by >8 Minimum inhibitory concentration (DIOGENES) (test code = 508-2) Nitrofurantoin [Susceptibility] by 64 ug/mL Minimum inhibitory concentration (DIOGENES) (test code = 363-2) Cefotaxime [Susceptibility] by <2 Minimum inhibitory concentration (DIOGENES) (test code = 108-1) Cefepime [Susceptibility] by Minimum <8 inhibitory concentration (DIOGENES) (test code = 6644-9) Levofloxacin [Susceptibility] by >4 Minimum inhibitory concentration (DIOGENES) (test code = 98784-0) Piperacillin+Tazobactam <16 [Susceptibility] by Minimum inhibitory concentration (DIOGENES) (test code = 412-7) Ceftazidime [Susceptibility] by <1 Minimum inhibitory concentration (DIOGENES) (test code = 133-9) Ceftriaxone [Susceptibility] by <1 Minimum inhibitory concentration (DIOGENES) (test code = 141-2) Ciprofloxacin [Susceptibility] by >2 Minimum inhibitory concentration (DIOGENES) (test code = 185-9) Ampicillin+Sulbactam =16/8 [Susceptibility] by Minimum inhibitory concentration (DIOGENES) (test code = 32-3) Ertapenem [Susceptibility] by <0.5 Minimum inhibitory concentration (DIOGENES) (test code = 29471-1) Aztreonam [Susceptibility] by <4 Minimum inhibitory concentration (DIOGENES) (test code = 44-8) Cefuroxime [Susceptibility] by <4 Minimum inhibitory concentration (DIOGENES) (test code = 99785-0) [facility] HospitalUr[facility] W Reflex Culture panel - Urine 2019-05-13 01:40:00 Test Item Value Reference Range Interpretation Comments Color of Urine by Auto (test code lt. yellow = 89619-3) Appearance of Urine (test code = cloudy clear 5767-9) Glucose [Mass/volume] in Urine negative negative (test code = 2350-7) bilirubin, urine (test code = negative negative bilirubin, urine) ketone, urine (test code = negative negative ketone, urine) Specific gravity of Urine by 1.015 1.003-1.030 Automated test strip (test code = 99548-7) Hemoglobin [Presence] in Urine by moderate negative H Test strip (test code = 5794-3) pH of Urine (test code = 2756-5) 6.000 5-9 protein urine (UA) (test code = =1+ (30 negative H protein urine (UA)) Urobilinogen [Presence] in Urine 0.2 E.U./dL 0.2-1.0 (test code = 42781-9) Nitrite [Presence] in Urine by negative negative Test strip (test code = 5802-4) urine leukocyte esterase (test =1 negative H code = urine leukocyte esterase) Erythrocytes [Presence] in Urine =10-14 0-5 H (test code = 93341-4) WBC, urine (test code = WBC, =15-19 0-5 H urine) Epithelial cells [Presence] in =0-5 0-5 Urine sediment by Light microscopy (test code = 51393-4) bacteria, urine (test code = small (1 none detect H bacteria, urine) urine culture added? (test code = yes urine culture added?) [facility] HospitalBacteria identified in Urine by [id number] 01:40:00Bacteria Ur CultPerry County General Hospitalantibiotic sensitivity testing, [id number] 01:40:00 Test Item Value Reference Range Interpretation Comments Gentamicin [Susceptibility] by >8 Minimum inhibitory concentration (DIOGENES) (test code = 267-5) Ampicillin [Susceptibility] by >16 Minimum inhibitory concentration (DIOGENES) (test code = 28-1) Trimethoprim+Sulfamethoxazole =2/38 [Susceptibility] by Minimum inhibitory concentration (DIOGENES) (test code = 516-5) Tetracycline [Susceptibility] by >8 Minimum inhibitory concentration (DIOGENES) (test code = 496-0) Amoxicillin+Clavulanate =8/4 [Susceptibility] by Minimum inhibitory concentration (DIOGENES) (test code = 20-8) Tobramycin [Susceptibility] by >8 Minimum inhibitory concentration (DIOGENES) (test code = 508-2) Nitrofurantoin [Susceptibility] by 64 ug/mL Minimum inhibitory concentration (DIOGENES) (test code = 363-2) Cefotaxime [Susceptibility] by <2 Minimum inhibitory concentration (DIOGENES) (test code = 108-1) Cefepime [Susceptibility] by Minimum <8 inhibitory concentration (DIOGENES) (test code = 6644-9) Levofloxacin [Susceptibility] by >4 Minimum inhibitory concentration (DIOGENES) (test code = 97973-5) Piperacillin+Tazobactam <16 [Susceptibility] by Minimum inhibitory concentration (DIOGENES) (test code = 412-7) Ceftazidime [Susceptibility] by <1 Minimum inhibitory concentration (DIOGENES) (test code = 133-9) Ceftriaxone [Susceptibility] by <1 Minimum inhibitory concentration (DIOGENES) (test code = 141-2) Ciprofloxacin [Susceptibility] by >2 Minimum inhibitory concentration (DIOGENES) (test code = 185-9) Ampicillin+Sulbactam =16/8 [Susceptibility] by Minimum inhibitory concentration (DIOGENES) (test code = 32-3) Ertapenem [Susceptibility] by <0.5 Minimum inhibitory concentration (DIOGENES) (test code = 26344-4) Aztreonam [Susceptibility] by <4 Minimum inhibitory concentration (DIOGENES) (test code = 44-8) Cefuroxime [Susceptibility] by <4 Minimum inhibitory concentration (DIOGENES) (test code = 52491-2) [facility] HospitalIron and Iron binding capacity panel - Serum or Plasma 2019-04-20 08:11:00 Test Item Value Reference Range Interpretation Comments iron (fe) (test code = iron (fe)) 47 ug/dL 37-145 total iron binding capacity (test 256 ug/dL 260-445 L code = total iron binding capacity) Iron saturation [Molar fraction] in 18 % 12-45 Serum or Plasma (test code = 20621-4) [facility] HospitalIron and Iron binding capacity panel - Serum or Plasma 2019-04-20 08:11:00 Test Item Value Reference Range Interpretation Comments iron (fe) (test code = iron (fe)) 47 ug/dL 37-145 total iron binding capacity (test 256 ug/dL 260-445 L code = total iron binding capacity) Iron saturation [Molar fraction] in 18 % 12-45 Serum or Plasma (test code = 29236-7) [facility] HospitalLipid 1995 panel - Serum or [id number] 15:02:00 Total CholesterolDesirableBorderline/highHighHDL CholesterolDesirableHighLDL CholesterolDesirableHighTryglyceridesDesNeshoba County General HospitalLipnv 1995 panel - Serum or [id number] 15:02:00Total CholesterolDesirableBorderline/highHighHDL CholesterolDesirableHighLDL CholesterolDesirableHighTryglyceridesDesNeshoba County General HospitalLipid 1995 panel - Serum or [id number] 15:02:00Total CholesterolDesirableBorderline/highHighHDL CholesterolDesirableHighLDL CholesterolDesirableHighTryglyceridesDesNeshoba County General HospitalLipid 1995 panel - Serum or [id number] 15:02:00Total CholesterolDesirableBorderline/highHighHDL CholesterolDesirableHighLDL CholesterolDesirableHighTryglyceridesDesNeshoba County General HospitalCB W Auto Differential panel - [id number] 08:29:00 Test Item Value Reference Range Interpretation Comments white blood count (test code = 7.1 K/uL 4.0-11.5 white blood count) red blood count (test code = red 2.99 M/uL 3.80-5.20 L blood count) hemoglobin (test code = 9.6 g/dL 10.5-15.7 L hemoglobin) hematocrit (test code = 30.2 % 34.0-50.0 L hematocrit) Erythrocyte mean corpuscular 101.0 fL 86-100 H volume [Entitic volume] (test code = 28040-5) mean corpuscular hemoglobin (test 32.1 pg 26.2-33.4 code = mean corpuscular hemoglobin) mean corpuscular HGB conc (test 31.8 g/dL 30-34 code = mean corpuscular HGB conc) red cell distribution width (test 14.3 % 12.0-15.5 code = red cell distribution width) platelet count (test code = 209 K/uL 165-450 platelet count) mean platelet volume (test code = 10.5 fL 9.4-12.6 mean platelet volume) Neutrophils.segmented/100 59.8 % 44.4-80.1 leukocytes in Blood (test code = 46147-4) Granulocytes Immature [#/volume] 0.0 K/uL 0.0-0.03 in Blood (test code = 66138-4) lymphocyte% (test code = 23.0 % 10.0-50.0 lymphocyte%) mono % (test code = mono %) 8.7 % 3.6-12.0 eos % (test code = eos %) 7.1 % 0.0-5.4 H Basophils/100 leukocytes in 1.1 % 0.1-1.2 Unspecified specimen (test code = 63616-7) Neutrophils.band form [#/volume] 4.24 K/uL 1.56-6.13 in Blood (test code = 71660-2) Lymphocytes [#/volume] in 1.6 K/uL 1.18-3.74 Unspecified specimen by Automated count (test code = 64455-3) mono # (test code = mono #) 0.62 K/uL 0.24-0.86 eos # (test code = eos #) 0.50 K/uL 0.04-0.36 H basophil # (test code = basophil 0.08 K/uL 0.01-0.08 #) NRBC% (test code = NRBC%) 0 /100 WBC 0-0.2 NRBC# (test code = NRBC#) 0 K/uL [facility] Hospitaldifferential panel, [id number] 08:29:00 NeutrophilsBandLymphocyteAtypical LymphMonocyteEosinophilBasophilNucleated Red Blood CellDifferential CommentPlatelet EstimatePlatelet MorphologyDohle BodiesRouleauToxic VacuolationPerry County General HospitalHemoglobin A1c [Mass/volume] in [id number] 08:29:00 Test Item Value Reference Range Interpretation Comments Hemoglobin A1c [Mass/volume] in Blood 5.1 % 4.0-6.0 (test code = 18047-2) [facility] HospitalComprehensive [facility] 2000 panel - Serum or Plasma 2019-04-07 08:29:00 Test Item Value Reference Range Interpretation Comments glucose (test code = glucose) 90 mg/dL 82-115 Urea nitrogen [Mass/volume] in 40 mg/dL 8-23 H Serum or Plasma (test code = 3094-0) osmolality calculated,serum (test 285 mOsm/kg 280-300 code = osmolality calculated,serum) creatinine (test code = 2.8 mg/dL 0.50-0.90 H creatinine) glomerular filtration rate (test 16.22 L code = glomerular filtration rate) Urea nitrogen/Creatinine [Mass 14.3 12-20 Ratio] in Serum or Plasma (test code = 3097-3) sodium level (test code = sodium 138 mmol/L 135-145 level) Potassium [Moles/volume] in Body 4.5 mmol/L 3.5-5.2 fluid (test code = 2821-7) chloride level (test code = 106 mmol/L 98-108 chloride level) CO2 (test code = CO2) 17 mmol/L 21-32 L anion gap (test code = anion gap) 19.5 mEq/L 12-20 calcium level (test code = 8.9 mg/dL 8.8-10.2 calcium level) total protein (test code = total 7.0 g/dL 6.6-8.7 protein) albumin (test code = albumin) 3.9 g/dL 3.5-5.2 globulin (test code = globulin) 3.1 gm/dL A/G ratio (test code = A/G ratio) 1.3 >1.0 bilirubin,total (test code = <0.3 0.0-1.2 bilirubin,total) AST/SGOT (test code = AST/SGOT) 16 U/L 15-32 Alanine aminotransferase 10 U/L 0-33 [Enzymatic activity/volume] in Serum or Plasma (test code = 1742-6) Alkaline phosphatase [Enzymatic 91 U/L 35-105 activity/volume] in Serum or Plasma (test code = 6768-6) [facility] HospitalLipid 1996 panel - Serum or [id number] 08:29:00 Test Item Value Reference Range Interpretation Comments cholesterol level (test code = 162 mg/dL 150-200 cholesterol level) triglycerides level (test code = 127 mg/dL <150 triglycerides level) HDL cholesterol (test code = HDL 34 mg/dL >65 L cholesterol) LDL cholesterol direct (test code = 113 mg/dL <100 H LDL cholesterol direct) cholesterol risk ratio (test code = 4.764 cholesterol risk ratio) [facility] W Auto Differential panel - [id number] 08:29:00 Test Item Value Reference Range Interpretation Comments white blood count (test code = 7.1 K/uL 4.0-11.5 white blood count) red blood count (test code = red 2.99 M/uL 3.80-5.20 L blood count) hemoglobin (test code = 9.6 g/dL 10.5-15.7 L hemoglobin) hematocrit (test code = 30.2 % 34.0-50.0 L hematocrit) Erythrocyte mean corpuscular 101.0 fL 86-100 H volume [Entitic volume] (test code = 15501-4) mean corpuscular hemoglobin (test 32.1 pg 26.2-33.4 code = mean corpuscular hemoglobin) mean corpuscular HGB conc (test 31.8 g/dL 30-34 code = mean corpuscular HGB conc) red cell distribution width (test 14.3 % 12.0-15.5 code = red cell distribution width) platelet count (test code = 209 K/uL 165-450 platelet count) mean platelet volume (test code = 10.5 fL 9.4-12.6 mean platelet volume) Neutrophils.segmented/100 59.8 % 44.4-80.1 leukocytes in Blood (test code = 60585-1) Granulocytes Immature [#/volume] 0.0 K/uL 0.0-0.03 in Blood (test code = 47127-7) lymphocyte% (test code = 23.0 % 10.0-50.0 lymphocyte%) mono % (test code = mono %) 8.7 % 3.6-12.0 eos % (test code = eos %) 7.1 % 0.0-5.4 H Basophils/100 leukocytes in 1.1 % 0.1-1.2 Unspecified specimen (test code = 89343-0) Neutrophils.band form [#/volume] 4.24 K/uL 1.56-6.13 in Blood (test code = 05709-1) Lymphocytes [#/volume] in 1.6 K/uL 1.18-3.74 Unspecified specimen by Automated count (test code = 50085-3) mono # (test code = mono #) 0.62 K/uL 0.24-0.86 eos # (test code = eos #) 0.50 K/uL 0.04-0.36 H basophil # (test code = basophil 0.08 K/uL 0.01-0.08 #) NRBC% (test code = NRBC%) 0 /100 WBC 0-0.2 NRBC# (test code = NRBC#) 0 K/uL [facility] Hospitaldifferential panel, [id number] 08:29:00 NeutrophilsBandLymphocyteAtypical LymphMonocyteEosinophilBasophilNucleated Red Blood CellDifferential CommentPlatelet EstimatePlatelet MorphologyDohle BodiesRouleauToxic VacuolationPerry [facility] HospitalHemoglobin A1c [Mass/volume] in [id number] 08:29:00 Test Item Value Reference Range Interpretation Comments Hemoglobin A1c [Mass/volume] in Blood 5.1 % 4.0-6.0 (test code = 20067-9) [facility] HospitalComprehensive [facility] 2000 panel - Serum or Plasma 2019-04-07 08:29:00 Test Item Value Reference Range Interpretation Comments glucose (test code = glucose) 90 mg/dL 82-115 Urea nitrogen [Mass/volume] in 40 mg/dL 8-23 H Serum or Plasma (test code = 3094-0) osmolality calculated,serum (test 285 mOsm/kg 280-300 code = osmolality calculated,serum) creatinine (test code = 2.8 mg/dL 0.50-0.90 H creatinine) glomerular filtration rate (test 16.22 L code = glomerular filtration rate) Urea nitrogen/Creatinine [Mass 14.3 12-20 Ratio] in Serum or Plasma (test code = 3097-3) sodium level (test code = sodium 138 mmol/L 135-145 level) Potassium [Moles/volume] in Body 4.5 mmol/L 3.5-5.2 fluid (test code = 2821-7) chloride level (test code = 106 mmol/L 98-108 chloride level) CO2 (test code = CO2) 17 mmol/L 21-32 L anion gap (test code = anion gap) 19.5 mEq/L 12-20 calcium level (test code = 8.9 mg/dL 8.8-10.2 calcium level) total protein (test code = total 7.0 g/dL 6.6-8.7 protein) albumin (test code = albumin) 3.9 g/dL 3.5-5.2 globulin (test code = globulin) 3.1 gm/dL A/G ratio (test code = A/G ratio) 1.3 >1.0 bilirubin,total (test code = <0.3 0.0-1.2 bilirubin,total) AST/SGOT (test code = AST/SGOT) 16 U/L 15-32 Alanine aminotransferase 10 U/L 0-33 [Enzymatic activity/volume] in Serum or Plasma (test code = 1742-6) Alkaline phosphatase [Enzymatic 91 U/L 35-105 activity/volume] in Serum or Plasma (test code = 6768-6) [facility] Hospital[facility] 1996 panel - Serum or [id number] 08:29:00 Test Item Value Reference Range Interpretation Comments cholesterol level (test code = 162 mg/dL 150-200 cholesterol level) triglycerides level (test code = 127 mg/dL <150 triglycerides level) HDL cholesterol (test code = HDL 34 mg/dL >65 L cholesterol) LDL cholesterol direct (test code = 113 mg/dL <100 H LDL cholesterol direct) cholesterol risk ratio (test code = 4.764 cholesterol risk ratio) [facility] W Auto Differential panel - [id number] 08:29:00 Test Item Value Reference Range Interpretation Comments white blood count (test code = 7.1 K/uL 4.0-11.5 white blood count) red blood count (test code = red 2.99 M/uL 3.80-5.20 L blood count) hemoglobin (test code = 9.6 g/dL 10.5-15.7 L hemoglobin) hematocrit (test code = 30.2 % 34.0-50.0 L hematocrit) Erythrocyte mean corpuscular 101.0 fL 86-100 H volume [Entitic volume] (test code = 12805-2) mean corpuscular hemoglobin (test 32.1 pg 26.2-33.4 code = mean corpuscular hemoglobin) mean corpuscular HGB conc (test 31.8 g/dL 30-34 code = mean corpuscular HGB conc) red cell distribution width (test 14.3 % 12.0-15.5 code = red cell distribution width) platelet count (test code = 209 K/uL 165-450 platelet count) mean platelet volume (test code = 10.5 fL 9.4-12.6 mean platelet volume) Neutrophils.segmented/100 59.8 % 44.4-80.1 leukocytes in Blood (test code = 39066-9) Granulocytes Immature [#/volume] 0.0 K/uL 0.0-0.03 in Blood (test code = 01474-6) lymphocyte% (test code = 23.0 % 10.0-50.0 lymphocyte%) mono % (test code = mono %) 8.7 % 3.6-12.0 eos % (test code = eos %) 7.1 % 0.0-5.4 H Basophils/100 leukocytes in 1.1 % 0.1-1.2 Unspecified specimen (test code = 91963-7) Neutrophils.band form [#/volume] 4.24 K/uL 1.56-6.13 in Blood (test code = 83927-9) Lymphocytes [#/volume] in 1.6 K/uL 1.18-3.74 Unspecified specimen by Automated count (test code = 67239-6) mono # (test code = mono #) 0.62 K/uL 0.24-0.86 eos # (test code = eos #) 0.50 K/uL 0.04-0.36 H basophil # (test code = basophil 0.08 K/uL 0.01-0.08 #) NRBC% (test code = NRBC%) 0 /100 WBC 0-0.2 NRBC# (test code = NRBC#) 0 K/uL [facility] [id number] 08:29:00 NeutrophilsBandLymphocyteAtypical LymphMonocyteEosinophilBasophilNucleated Red Blood CellDifferential CommentPlatelet EstimatePlatelet MorphologyDohle BodiesRouleauToxic VacuolationPerry [facility] General HospitalHemoglobin A1c [Mass/volume] in [id number] 08:29:00 Test Item Value Reference Range Interpretation Comments Hemoglobin A1c [Mass/volume] in Blood 5.1 % 4.0-6.0 (test code = 81198-8) [facility]Com[facility] 2000 [facility] - Serum or Plasma 2019-04-07 08:29:00 Test Item Value Reference Range Interpretation Comments glucose (test code = glucose) 90 mg/dL 82-115 Urea nitrogen [Mass/volume] in 40 mg/dL 8-23 H Serum or Plasma (test code = 3094-0) osmolality calculated,serum (test 285 mOsm/kg 280-300 code = osmolality calculated,serum) creatinine (test code = 2.8 mg/dL 0.50-0.90 H creatinine) glomerular filtration rate (test 16.22 L code = glomerular filtration rate) Urea nitrogen/Creatinine [Mass 14.3 12-20 Ratio] in Serum or Plasma (test code = 3097-3) sodium level (test code = sodium 138 mmol/L 135-145 level) Potassium [Moles/volume] in Body 4.5 mmol/L 3.5-5.2 fluid (test code = 2821-7) chloride level (test code = 106 mmol/L 98-108 chloride level) CO2 (test code = CO2) 17 mmol/L 21-32 L anion gap (test code = anion gap) 19.5 mEq/L 12-20 calcium level (test code = 8.9 mg/dL 8.8-10.2 calcium level) total protein (test code = total 7.0 g/dL 6.6-8.7 protein) albumin (test code = albumin) 3.9 g/dL 3.5-5.2 globulin (test code = globulin) 3.1 gm/dL A/G ratio (test code = A/G ratio) 1.3 >1.0 bilirubin,total (test code = <0.3 0.0-1.2 bilirubin,total) AST/SGOT (test code = AST/SGOT) 16 U/L 15-32 Alanine aminotransferase 10 U/L 0-33 [Enzymatic activity/volume] in Serum or Plasma (test code = 1742-6) Alkaline phosphatase [Enzymatic 91 U/L 35-105 activity/volume] in Serum or Plasma (test code = 6768-6) [facility] HospitalLip[facility] 1996 panel - Serum or [id number] 08:29:00 Test Item Value Reference Range Interpretation Comments cholesterol level (test code = 162 mg/dL 150-200 cholesterol level) triglycerides level (test code = 127 mg/dL <150 triglycerides level) HDL cholesterol (test code = HDL 34 mg/dL >65 L cholesterol) LDL cholesterol direct (test code = 113 mg/dL <100 H LDL cholesterol direct) cholesterol risk ratio (test code = 4.764 cholesterol risk ratio) [facility] W Auto Differential panel - [id number] 08:29:00 Test Item Value Reference Range Interpretation Comments white blood count (test code = 7.1 K/uL 4.0-11.5 white blood count) red blood count (test code = red 2.99 M/uL 3.80-5.20 L blood count) hemoglobin (test code = 9.6 g/dL 10.5-15.7 L hemoglobin) hematocrit (test code = 30.2 % 34.0-50.0 L hematocrit) Erythrocyte mean corpuscular 101.0 fL 86-100 H volume [Entitic volume] (test code = 82013-3) mean corpuscular hemoglobin (test 32.1 pg 26.2-33.4 code = mean corpuscular hemoglobin) mean corpuscular HGB conc (test 31.8 g/dL 30-34 code = mean corpuscular HGB conc) red cell distribution width (test 14.3 % 12.0-15.5 code = red cell distribution width) platelet count (test code = 209 K/uL 165-450 platelet count) mean platelet volume (test code = 10.5 fL 9.4-12.6 mean platelet volume) Neutrophils.segmented/100 59.8 % 44.4-80.1 leukocytes in Blood (test code = 04787-4) Granulocytes Immature [#/volume] 0.0 K/uL 0.0-0.03 in Blood (test code = 36173-9) lymphocyte% (test code = 23.0 % 10.0-50.0 lymphocyte%) mono % (test code = mono %) 8.7 % 3.6-12.0 eos % (test code = eos %) 7.1 % 0.0-5.4 H Basophils/100 leukocytes in 1.1 % 0.1-1.2 Unspecified specimen (test code = 28551-1) Neutrophils.band form [#/volume] 4.24 K/uL 1.56-6.13 in Blood (test code = 70249-3) Lymphocytes [#/volume] in 1.6 K/uL 1.18-3.74 Unspecified specimen by Automated count (test code = 46112-5) mono # (test code = mono #) 0.62 K/uL 0.24-0.86 eos # (test code = eos #) 0.50 K/uL 0.04-0.36 H basophil # (test code = basophil 0.08 K/uL 0.01-0.08 #) NRBC% (test code = NRBC%) 0 /100 WBC 0-0.2 NRBC# (test code = NRBC#) 0 K/uL [facility]differential panel, [id number] 08:29:00 NeutrophilsBandLymphocyteAtypical LymphMonocyteEosinophilBasophilNucleated Red Blood CellDifferential CommentPlatelet EstimatePlatelet MorphologyDohle BodiesRouleauToxic VacuolationMatagoMerit Health WesleyHemoglobin A1c [Mass/volume] in [id number] 08:29:00 Test Item Value Reference Range Interpretation Comments Hemoglobin A1c [Mass/volume] in Blood 5.1 % 4.0-6.0 (test code = 31754-7) [facility]Com[facility] 2000 [facility] - Serum or Plasma 2019-04-07 08:29:00 Test Item Value Reference Range Interpretation Comments glucose (test code = glucose) 90 mg/dL 82-115 Urea nitrogen [Mass/volume] in 40 mg/dL 8-23 H Serum or Plasma (test code = 3094-0) osmolality calculated,serum (test 285 mOsm/kg 280-300 code = osmolality calculated,serum) creatinine (test code = 2.8 mg/dL 0.50-0.90 H creatinine) glomerular filtration rate (test 16.22 L code = glomerular filtration rate) Urea nitrogen/Creatinine [Mass 14.3 12-20 Ratio] in Serum or Plasma (test code = 3097-3) sodium level (test code = sodium 138 mmol/L 135-145 level) Potassium [Moles/volume] in Body 4.5 mmol/L 3.5-5.2 fluid (test code = 2821-7) chloride level (test code = 106 mmol/L 98-108 chloride level) CO2 (test code = CO2) 17 mmol/L 21-32 L anion gap (test code = anion gap) 19.5 mEq/L 12-20 calcium level (test code = 8.9 mg/dL 8.8-10.2 calcium level) total protein (test code = total 7.0 g/dL 6.6-8.7 protein) albumin (test code = albumin) 3.9 g/dL 3.5-5.2 globulin (test code = globulin) 3.1 gm/dL A/G ratio (test code = A/G ratio) 1.3 >1.0 bilirubin,total (test code = <0.3 0.0-1.2 bilirubin,total) AST/SGOT (test code = AST/SGOT) 16 U/L 15-32 Alanine aminotransferase 10 U/L 0-33 [Enzymatic activity/volume] in Serum or Plasma (test code = 1742-6) Alkaline phosphatase [Enzymatic 91 U/L 35-105 activity/volume] in Serum or Plasma (test code = 6768-6) [facility] 1996 panel - Serum or [id number] 08:29:00 Test Item Value Reference Range Interpretation Comments cholesterol level (test code = 162 mg/dL 150-200 cholesterol level) triglycerides level (test code = 127 mg/dL <150 triglycerides level) HDL cholesterol (test code = HDL 34 mg/dL >65 L cholesterol) LDL cholesterol direct (test code = 113 mg/dL <100 H LDL cholesterol direct) cholesterol risk ratio (test code = 4.764 cholesterol risk ratio) [facility] HospitalUrinalysis complete W Reflex Culture panel - Urine 2019-04-01 03:10:00 Test Item Value Reference Range Interpretation Comments Color of Urine by Auto light yellow (test code = 24390-1) Appearance of Urine (test SL cloudy clear A code = 5767-9) Glucose [Mass/volume] in negative negative Urine (test code = 2350-7) bilirubin, urine (test negative negative code = bilirubin, urine) ketone, urine (test code negative negative = ketone, urine) Specific gravity of Urine 1.010 1.003-1.030 by Automated test strip (test code = 33108-5) Hemoglobin [Presence] in large negative H Urine by Test strip (test code = 5794-3) pH of Urine (test code = 7.500 5-9 2756-5) protein urine (UA) (test =1+ (30 negative H code = protein urine (UA)) Urobilinogen [Presence] 0.2 E.U./dL 0.2-1.0 in Urine (test code = 99616-0) Nitrite [Presence] in negative negative Urine by Test strip (test code = 5802-4) urine leukocyte esterase =3 negative H (test code = urine leukocyte esterase) Erythrocytes [Presence] =10-14 0-5 H in Urine (test code = 77223-5) WBC, urine (test code = too numerous to cnt 0-5 H WBC, urine) bacteria, urine (test full field none detect H code = bacteria, urine) Casts [#/area] in Urine =2-5 none detect sediment by Automated count (test code = 82943-8) urine culture added? already ordered (test code = urine culture added?) squamous epithelial cell =0-5 0-5 urine (test code = squamous epithelial cell urine) [facility] GroupBacteria identified in Urine by [id number] 03:10:00Bacteria Ur CultMatagorda Medical Groupantibiotic sensitivity testing, [id number] 03:10:00 Test Item Value Reference Range Interpretation Comments Gentamicin [Susceptibility] by Minimum <4 inhibitory concentration (DIOGENES) (test code = 267-5) Ampicillin [Susceptibility] by Minimum >16 inhibitory concentration (DIOGENES) (test code = 28-1) Cefazolin [Susceptibility] by Minimum <8 inhibitory concentration (DIOGENES) (test code = 76-0) Trimethoprim+Sulfamethoxazole =2/38 [Susceptibility] by Minimum inhibitory concentration (DIOGENES) (test code = 516-5) Tetracycline [Susceptibility] by <4 Minimum inhibitory concentration (DIOGENES) (test code = 496-0) Amoxicillin+Clavulanate =8/4 [Susceptibility] by Minimum inhibitory concentration (DIOGENES) (test code = 20-8) Tobramycin [Susceptibility] by Minimum <4 inhibitory concentration (DIOGENES) (test code = 508-2) Nitrofurantoin [Susceptibility] by <32 Minimum inhibitory concentration (DIOGENES) (test code = 363-2) Cefotaxime [Susceptibility] by Minimum <2 inhibitory concentration (DIOGENES) (test code = 108-1) Cefepime [Susceptibility] by Minimum <8 inhibitory concentration (DIOGENES) (test code = 6644-9) Levofloxacin [Susceptibility] by <2 Minimum inhibitory concentration (DIOGENES) (test code = 05019-9) Piperacillin+Tazobactam <16 [Susceptibility] by Minimum inhibitory concentration (DIOGENES) (test code = 412-7) Ceftazidime [Susceptibility] by Minimum <1 inhibitory concentration (DIOGENES) (test code = 133-9) Ceftriaxone [Susceptibility] by Minimum <8 inhibitory concentration (DIOGENES) (test code = 141-2) Ciprofloxacin [Susceptibility] by <1 Minimum inhibitory concentration (DIOGENES) (test code = 185-9) Imipenem [Susceptibility] by Minimum <4 inhibitory concentration (DIOGENES) (test code = 279-0) Ampicillin+Sulbactam [Susceptibility] =8/4 by Minimum inhibitory concentration (DIOGENES) (test code = 32-3) Ertapenem [Susceptibility] by Minimum <2 inhibitory concentration (DIOGENES) (test code = 96296-1) Aztreonam [Susceptibility] by Minimum <8 inhibitory concentration (DIOGENES) (test code = 44-8) Cefuroxime [Susceptibility] by Minimum <4 inhibitory concentration (DIOGENES) (test code = 83321-3) Meropenem [Susceptibility] by Minimum <4 inhibitory concentration (DIOGENES) (test code = 6652-2) [facility] GroupUrinalysis complete W Reflex Culture panel - Urine 2019-04-01 03:10:00 Test Item Value Reference Range Interpretation Comments Color of Urine by Auto light yellow (test code = 29916-4) Appearance of Urine (test SL cloudy clear A code = 5767-9) Glucose [Mass/volume] in negative negative Urine (test code = 2350-7) bilirubin, urine (test negative negative code = bilirubin, urine) ketone, urine (test code negative negative = ketone, urine) Specific gravity of Urine 1.010 1.003-1.030 by Automated test strip (test code = 16681-1) Hemoglobin [Presence] in large negative H Urine by Test strip (test code = 5794-3) pH of Urine (test code = 7.500 5-9 2756-5) protein urine (UA) (test =1+ (30 negative H code = protein urine (UA)) Urobilinogen [Presence] 0.2 E.U./dL 0.2-1.0 in Urine (test code = 97733-9) Nitrite [Presence] in negative negative Urine by Test strip (test code = 5802-4) urine leukocyte esterase =3 negative H (test code = urine leukocyte esterase) Erythrocytes [Presence] =10-14 0-5 H in Urine (test code = 14634-7) WBC, urine (test code = too numerous to cnt 0-5 H WBC, urine) bacteria, urine (test full field none detect H code = bacteria, urine) Casts [#/area] in Urine =2-5 none detect sediment by Automated count (test code = 92485-5) urine culture added? already ordered (test code = urine culture added?) squamous epithelial cell =0-5 0-5 urine (test code = squamous epithelial cell urine) [facility] HospitalBacteria identified in Urine by [id number] 03:10:00Bacteria Ur [facility]antib[facility], [id number] 03:10:00 Test Item Value Reference Range Interpretation Comments Gentamicin [Susceptibility] by Minimum <4 inhibitory concentration (DIOGENES) (test code = 267-5) Ampicillin [Susceptibility] by Minimum >16 inhibitory concentration (DIOGENES) (test code = 28-1) Cefazolin [Susceptibility] by Minimum <8 inhibitory concentration (DIOGENES) (test code = 76-0) Trimethoprim+Sulfamethoxazole =2/38 [Susceptibility] by Minimum inhibitory concentration (DIOGENES) (test code = 516-5) Tetracycline [Susceptibility] by <4 Minimum inhibitory concentration (DIOGENES) (test code = 496-0) Amoxicillin+Clavulanate =8/4 [Susceptibility] by Minimum inhibitory concentration (DIOGENES) (test code = 20-8) Tobramycin [Susceptibility] by Minimum <4 inhibitory concentration (DIOGENES) (test code = 508-2) Nitrofurantoin [Susceptibility] by <32 Minimum inhibitory concentration (DIOGENES) (test code = 363-2) Cefotaxime [Susceptibility] by Minimum <2 inhibitory concentration (DIOGENES) (test code = 108-1) Cefepime [Susceptibility] by Minimum <8 inhibitory concentration (DIOGENES) (test code = 6644-9) Levofloxacin [Susceptibility] by <2 Minimum inhibitory concentration (DIOGENES) (test code = 90743-5) Piperacillin+Tazobactam <16 [Susceptibility] by Minimum inhibitory concentration (DIOGENES) (test code = 412-7) Ceftazidime [Susceptibility] by Minimum <1 inhibitory concentration (DIOGENES) (test code = 133-9) Ceftriaxone [Susceptibility] by Minimum <8 inhibitory concentration (DIOGENES) (test code = 141-2) Ciprofloxacin [Susceptibility] by <1 Minimum inhibitory concentration (DIOGENES) (test code = 185-9) Imipenem [Susceptibility] by Minimum <4 inhibitory concentration (DIOGENES) (test code = 279-0) Ampicillin+Sulbactam [Susceptibility] =8/4 by Minimum inhibitory concentration (DIOGENES) (test code = 32-3) Ertapenem [Susceptibility] by Minimum <2 inhibitory concentration (DIOGENES) (test code = 33883-6) Aztreonam [Susceptibility] by Minimum <8 inhibitory concentration (DIOGENES) (test code = 44-8) Cefuroxime [Susceptibility] by Minimum <4 inhibitory concentration (DIOGENES) (test code = 37099-0) Meropenem [Susceptibility] by Minimum <4 inhibitory concentration (DIOGENES) (test code = 6652-2) [facility] GroupUrinalysis complete [facility] Ref[facility] Culture panel - Urine 2019-04-01 03:10:00 Test Item Value Reference Range Interpretation Comments Color of Urine by Auto light yellow (test code = 15650-4) Appearance of Urine (test SL cloudy clear A code = 5767-9) Glucose [Mass/volume] in negative negative Urine (test code = 2350-7) bilirubin, urine (test negative negative code = bilirubin, urine) ketone, urine (test code negative negative = ketone, urine) Specific gravity of Urine 1.010 1.003-1.030 by Automated test strip (test code = 48162-6) Hemoglobin [Presence] in large negative H Urine by Test strip (test code = 5794-3) pH of Urine (test code = 7.500 5-9 2756-5) protein urine (UA) (test =1+ (30 negative H code = protein urine (UA)) Urobilinogen [Presence] 0.2 E.U./dL 0.2-1.0 in Urine (test code = 35226-9) Nitrite [Presence] in negative negative Urine by Test strip (test code = 5802-4) urine leukocyte esterase =3 negative H (test code = urine leukocyte esterase) Erythrocytes [Presence] =10-14 0-5 H in Urine (test code = 85546-6) WBC, urine (test code = too numerous to cnt 0-5 H WBC, urine) bacteria, urine (test full field none detect H code = bacteria, urine) Casts [#/area] in Urine =2-5 none detect sediment by Automated count (test code = 11471-7) urine culture added? already ordered (test code = urine culture added?) squamous epithelial cell =0-5 0-5 urine (test code = squamous epithelial cell urine) [facility] GroupBacteria identified in Urine by [id number] 03:10:00Bacteria Ur [facility] Centerantib[facility] testing, [id number] 03:10:00 Test Item Value Reference Range Interpretation Comments Gentamicin [Susceptibility] by Minimum <4 inhibitory concentration (DIOGENES) (test code = 267-5) Ampicillin [Susceptibility] by Minimum >16 inhibitory concentration (DIOGENES) (test code = 28-1) Cefazolin [Susceptibility] by Minimum <8 inhibitory concentration (DIOGENES) (test code = 76-0) Trimethoprim+Sulfamethoxazole =2/38 [Susceptibility] by Minimum inhibitory concentration (DIOGENES) (test code = 516-5) Tetracycline [Susceptibility] by <4 Minimum inhibitory concentration (DIOGENES) (test code = 496-0) Amoxicillin+Clavulanate =8/4 [Susceptibility] by Minimum inhibitory concentration (DIOGENES) (test code = 20-8) Tobramycin [Susceptibility] by Minimum <4 inhibitory concentration (DIOGENES) (test code = 508-2) Nitrofurantoin [Susceptibility] by <32 Minimum inhibitory concentration (DIOGENES) (test code = 363-2) Cefotaxime [Susceptibility] by Minimum <2 inhibitory concentration (DIOGENES) (test code = 108-1) Cefepime [Susceptibility] by Minimum <8 inhibitory concentration (DIOGENES) (test code = 6644-9) Levofloxacin [Susceptibility] by <2 Minimum inhibitory concentration (DIOGENES) (test code = 82480-0) Piperacillin+Tazobactam <16 [Susceptibility] by Minimum inhibitory concentration (DIOGENES) (test code = 412-7) Ceftazidime [Susceptibility] by Minimum <1 inhibitory concentration (DIOGENES) (test code = 133-9) Ceftriaxone [Susceptibility] by Minimum <8 inhibitory concentration (DIOGENES) (test code = 141-2) Ciprofloxacin [Susceptibility] by <1 Minimum inhibitory concentration (DIOGENES) (test code = 185-9) Imipenem [Susceptibility] by Minimum <4 inhibitory concentration (DIOGENES) (test code = 279-0) Ampicillin+Sulbactam [Susceptibility] =8/4 by Minimum inhibitory concentration (DIOGENES) (test code = 32-3) Ertapenem [Susceptibility] by Minimum <2 inhibitory concentration (DIOGENES) (test code = 42359-4) Aztreonam [Susceptibility] by Minimum <8 inhibitory concentration (DIOGENES) (test code = 44-8) Cefuroxime [Susceptibility] by Minimum <4 inhibitory concentration (DIOGENES) (test code = 90829-0) Meropenem [Susceptibility] by Minimum <4 inhibitory concentration (DIOGENES) (test code = 6652-2) [facility] U[facility] by [id number] 01:47:00Bacteria Ur [facility] Centerantib[facility] testing, [id number] 01:47:00 Test Item Value Reference Range Interpretation Comments Gentamicin [Susceptibility] by <4 Minimum inhibitory concentration (DIOGENES) (test code = 267-5) Ampicillin [Susceptibility] by >16 Minimum inhibitory concentration (DIOGENES) (test code = 28-1) Cefazolin [Susceptibility] by Minimum >16 inhibitory concentration (DIOGENES) (test code = 76-0) Trimethoprim+Sulfamethoxazole =2/38 [Susceptibility] by Minimum inhibitory concentration (DIOGENES) (test code = 516-5) Tetracycline [Susceptibility] by <4 Minimum inhibitory concentration (DIOGENES) (test code = 496-0) Amoxicillin+Clavulanate =16/8 [Susceptibility] by Minimum inhibitory concentration (DIOGENES) (test code = 20-8) Tobramycin [Susceptibility] by >8 Minimum inhibitory concentration (DIOGENES) (test code = 508-2) Nitrofurantoin [Susceptibility] by >64 Minimum inhibitory concentration (DIOGENES) (test code = 363-2) Cefotaxime [Susceptibility] by >32 Minimum inhibitory concentration (DIOGENES) (test code = 108-1) Cefepime [Susceptibility] by Minimum <8 inhibitory concentration (DIOGENES) (test code = 6644-9) Levofloxacin [Susceptibility] by >4 Minimum inhibitory concentration (DIOGENES) (test code = 39216-9) Piperacillin+Tazobactam >64 [Susceptibility] by Minimum inhibitory concentration (DIOGENES) (test code = 412-7) Ceftazidime [Susceptibility] by >16 Minimum inhibitory concentration (DIOGENES) (test code = 133-9) Ceftriaxone [Susceptibility] by >32 Minimum inhibitory concentration (DIOGENES) (test code = 141-2) Ciprofloxacin [Susceptibility] by >2 Minimum inhibitory concentration (DIOGENES) (test code = 185-9) Imipenem [Susceptibility] by Minimum 8 ug/mL inhibitory concentration (DIOGENES) (test code = 279-0) Ampicillin+Sulbactam [Susceptibility] =16/8 by Minimum inhibitory concentration (DIOGENES) (test code = 32-3) Ertapenem [Susceptibility] by Minimum >4 inhibitory concentration (DIOGENES) (test code = 88383-6) Aztreonam [Susceptibility] by Minimum >16 inhibitory concentration (DIOGENES) (test code = 44-8) [id number] (test code = [id number]) >16 Meropenem [Susceptibility] by Minimum >8 inhibitory concentration (DIOGENES) (test code = 6652-2) [facility] GroupSpecial Procedure Send [id number] 13:30:00 Test Item Value Reference Range Interpretation Comments Performing Site (test see [facility] report code = SITE) Test Ordered (test B-Type Natriuretic code = TESTORD) Peptide
--- NOTE | 2022-08-30 22:48 | RAD REPORT ---
EXAM DESCRIPTION: RAD - Knee Right 3 View - 08/30/2022 10:25 pm CLINICAL HISTORY: Right knee pain status post injury FINDINGS: The bones are osteoporotic. Small joint effusion is present. Cortical irregularity involves the lateral tibial plateau. This probably represents a fracture but th is is not certain. CT is recommended No dislocation
--- NOTE | 2022-08-31 01:09 | ER ---
Nurse's Notes [facility] Name: Elsi Betts Age: 86 yrs Sex: Female : 1935 Arrival Date: 08/30/2022 Time: 21:00 Bed 2 Private MD: Diagnosis: Comminuted Right Tibial Plateau fracture;Contusion of right lower leg;Pain in right knee Presentation: 08/30 21:02 Chief complaint: EMS states: [facility] stated patient was sent from [facility] home to be checked out for bruising to right lower extremity, right ankle and right knee pain of 5. EMS stated the nurse arrived on shift, notices the bruising to patient right leg and right ankle, then notified and patient was then sent to ER to be checked out. 21:02 Coronavirus screen: Client denies travel out of the [place] in the last 14 days. At this pf1 time, the client does not indicate any symptoms associated with coronavirus-19. Ebola Screen: Patient negative for fever greater than or equal to 101.5 degrees Fahrenheit, and additional compatible Ebola Virus Disease symptoms. Initial Sepsis Screen: Does the patient meet any 2 criteria? No. Patient's initial sepsis screen is negative. Does the patient have a suspected source of infection? No. Patient's initial sepsis screen is negative. Risk Assessment: Do you want to hurt yourself or someone else? Patient reports no desire to harm self or others. Onset of symptoms is unknown. 21:02 Method Of Arrival: EMS: [facility] pf1 21:02 Acuity: DHEERAJ 3 pf1 Historical: - Allergies: 21:18 Meperidine; pf1 Screenin:05 [facility] ED Fall Risk Assessment (Adult) History of falling in the last 3 months, pf1 including since admission Yes- single mechanical fall (1 pt) Confusion or Disorientation Yes (5 pts) Intoxicated or Sedated No (0 pts) Impaired Gait Yes (1 pt) Mobility Assist Device Used Yes (1 pt) Altered Elimination Yes (1 pt) Score/Fall Risk Level 3 or more points = High Risk Oriented to surroundings, Maintained a safe environment, Educated pt \T\ family on fall prevention, incl call for assistance when getting out of bed, Assessed \T\ reinforced patient's understanding of fall precautions, Provided non-skid footwear, Hourly rounding (assess needs \T\ fall precautionary measures) done, Used ambulatory aids as needed (educated on \T\ assisted with), Used gait belt as appropriate Implemented a Fall Risk Plan of Care, Apply high fall risk patient identification: yellow non skid footwear/ fall signage, Remained w/in arm's length of patient and in sight while toileting, Offered frequent toileting (1:1 observation), Remained with patient while ambulating. 21:05 Abuse screen: Denies threats or abuse. Nutritional screening: No deficits noted. pf1 Tuberculosis screening: No symptoms or risk factors identified. Assessment: 21:02 General: Appears in no apparent distress. comfortable, well groomed, well developed, pf1 Behavior is calm, cooperative, appropriate for age, quiet. 21:02 Pain: Complains of pain in right knee Pain currently is 5 out of 10 on a pain scale. pf1 Neuro: Level of Consciousness is awake, alert, obeys commands, Oriented to person, place, situation. Cardiovascular: No deficits noted. Capillary refill < 3 seconds Patient's skin is warm and dry. Respiratory: No deficits noted. Airway is patent Trachea midline Respiratory effort is even, unlabored, Respiratory pattern is regular, symmetrical. GI: No deficits noted. No signs and/or symptoms were reported involving the gastrointestinal system. : No deficits noted. No signs and/or symptoms were reported regarding the genitourinary system. EENT: No deficits noted. No signs and/or symptoms were reported regarding the EENT system. Derm: Bruising that is dark purple, on right leg and right ankle. Musculoskeletal: Reports pain in right knee Pain is 5 out of 10 on a pain scale. Vital Signs: 21:02 BP 155 / 61; Pulse 79; Resp 20; Temp 98.6(A); Pulse Ox 98% on R/A; Weight 69.5 kg; Pain pf1 5/10; 21:02 Pain Scale: Adult pf1 ED Course: 21:00 Patient arrived in ED. ds4 21:01 Tomás Toth DO is Attending Physician. ms3 21:05 Patient has correct armband on for positive identification. Fall risk band placed. Bed pf1 in low position. Call light in reach. Side rails up X2. 21:17 Triage completed. pf1 22:26 Knee Right 3 View XRAY In Process Unspecified. EDMS 08/31 00:41 Knee Right Wo Cont In Process Unspecified. EDMS 01:06 Zeb Ramirez MD is Referral Physician. ms3 Administered Medications: No medications were administered Outcome: :08 Discharge ordered by . ms3 Signatures: Dispatcher [employer] EDMS Sammy Rodriguez ds4 Tomás Toth DO DO ms3 Samia rosales, RN RN pf1
--- NOTE | 2022-08-31 01:09 | EDPHYS ---
Physician Documentation [facility] Name: Elsi Bettendorf Age: 86 yrs Sex: Female : 1935 Arrival Date: 08/30/2022 Time: 21:00 Bed 2 Private MD: ED Physician Tomás Toth HPI: 08/30 21:08 This 86 yrs old Unknown Female presents to ER via Unassigned with complaints of Right ms3 knee bruising and pain. 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 Patient states she has right knee pain when moving her right knee. Patient denies alleviating factors. Patient denies fevers, chills, falls.. Historical: - Allergies: 21:18 Meperidine; pf1 ROS: 21:08 Constitutional: Negative for fever, and chills. Neck: Negative for injury, pain, and ms3 swelling, Cardiovascular: Negative for chest pain, and palpitations. Respiratory: Negative for shortness of breath, cough, wheezing, and pleuritic chest pain, Abdomen/GI: Negative for abdominal pain, nausea, vomiting, diarrhea, and constipation. 21:08 MS/extremity: Positive for pain, swelling, tenderness, of the Right knee. Exam: 21:08 Constitutional: This is a well developed, well nourished patient who is awake, alert, ms3 and in no acute distress. Head/Face: Normocephalic, atraumatic. Neck: Trachea midline, no cervical lymphadenopathy. Supple, full range of motion without nuchal rigidity, or vertebral point tenderness. No Meningismus. Chest/axilla: Normal chest wall appearance and motion. Nontender with no deformity. Cardiovascular: Regular rate and rhythm with a normal S1 and S2. No gallops, murmurs, or rubs. Normal PMI, no JVD. No pulse deficits. Respiratory: Lungs have equal breath sounds bilaterally, clear to auscultation and percussion. No rales, rhonchi or wheezes noted. No increased work of breathing, no retractions or nasal flaring. Abdomen/GI: Soft, non-tender, with normal bowel sounds. No distension or tympany. No guarding or rebound. No evidence of tenderness throughout. Skin: Warm, dry with normal turgor. Normal color with no rashes, no lesions, and no evidence of cellulitis. 21:08 Musculoskeletal/extremity: Extremities: noted in the Right knee: contusion, ecchymosis, pain, swelling, tenderness. Vital Signs: 21:02 BP 155 / 61; Pulse 79; Resp 20; Temp 98.6(A); Pulse Ox 98% on R/A; Weight 69.5 kg; Pain pf1 5/10; 21:02 Pain Scale: Adult pf1 MDM: 21:02 Patient medically screened. ms3 21:08 Differential diagnosis: closed fracture, contusion. ms3 08/30 21:07 Order name: Knee Right 3 View XRAY; Complete Time: 23:04 ms3 08/30 23:50 Order name: Knee Right Wo Cont EDMS 08/31 01:09 Order name: Knee Immobilizer ms3 Administered Medications: No medications were administered Disposition Summary: 08/31/22 01:08 Discharge Ordered Location: Home ms3 Condition: Stable ms3 Diagnosis - Comminuted Right Tibial Plateau fracture ms3 - Contusion of right lower leg ms3 - Pain in right knee ms3 Followup: ms3 - With: Zeb Ramirez MD - When: 2 - 3 days - Reason: Recheck today's complaints Discharge Instructions: - Discharge Summary Sheet ms3 - Nondisplaced Tibial Plateau Fracture ms3 Forms: - Medication Reconciliation Form ms3 - Thank You Letter ms3 - Antibiotic Education ms3 - Prescription Opioid Use ms3 Signatures: Dispatcher [employer] EDTomás Alberto DO DO ms3 Samia rosales RN RN pf1 Corrections: (The following items were deleted from the chart) 23:50 23:12 CT RIGHT KNEE WO CONTRAST ordered. EDMS EDMS
[2022-08-31 03:35] VITALS: TEMP 98.4; O2SAT 99
[2022-08-31 03:37] VITALS: BP 118/88
--- NOTE | 2022-09-01 13:43 | RAD REPORT ---
EXAM DESCRIPTION: CT - Knee Right Wo Cont - 08/31/2022 6:25 am CLINICAL HISTORY: Pain. TECHNIQUE: CT scan of right knee without contrast. 2 mm axial images were obtained along with amos l and sagittal reformatted images. DOSE OPTIMIZATION: This facility uses dose optimization techniques as appropriate to perform exams, including at least one of the following techniques: 1. Automated exposure control. 2. Adjustment of the mA and/or kV according to patient size (this includes techniques or standardized protocols for targeted exams where dose is matched to the indication/reason for exam, i.e. extremiti es or head). 3. Use of iterative reconstructive technique. . COMPARISON: None. FINDINGS: There is evidence of osteoporosis. There is a severely comminuted and depressed fracture identified involving the lateral tibial plateau . The fracture lines extend from the articular surface of the lateral tibial plateau into the proxima l diaphysis of the tibia along its lateral aspect as well as into the medial plateau patient adjacent to the tibial spine which is nondisplaced.. The lateral plateau fracture fragments are depressed 8 m m. There is a moderate-sized hemarthrosis. There is moderately severe subcutaneous edema along the posterior aspect of the joint. IMPRESSION: 1. Comminuted and depressed fracture involving the lateral tibial plateau with extension of fracture lines into the proximal diaphysis of the tibia along its lateral aspect and into the med ial plateau adjacent to the tibial spine where it is nondisplaced. 2. Moderate-sized hemarthrosis. 3. Osteoporosis. Electronically signed by: Emil Russ MD 08/31/2022 12:51 AM CDT Due to temporary technical issues with the PACS/Fluency reporting system, reports are being signed by the in house radiologists without review as a courtesy to insure prompt reporting. The interpreting radiologist is fully responsible for the content of the report.
== END 2022-08-31 02:44 | disposition home or self-care (01) ==
LOC: ER 20:58
DX: S82.141A Displaced bicondylar fracture of right tibia, initial encounter for closed fracture (principal); S80.11XA Contusion of right lower leg, initial encounter; W18.30XA Fall on same level, unspecified, initial encounter; Z91.81 History of falling; M25.561 Pain in right knee; G20 Parkinson's disease; I10 Essential (primary) hypertension; N18.9 Chronic kidney disease, unspecified; D64.9 Anemia, unspecified; I50.9 Heart failure, unspecified; I63.9 Cerebral infarction, unspecified; Z88.8 Allergy status to other drugs, medicaments and biological substances
CPT/HCPCS: 73700; 99284